=== PATIENT | male | born 1975 | race Hispanic/Latino ===

== ENCOUNTER 2018-03-15 09:49 | Inpatient (IN) | payer OTHER ==
[2018-03-15] MEDS ORDERED: Sodium Chloride 0.9% 1,000 ML IV ONE (10:25)
--- NOTE | 2018-03-15 10:35 | C.PDOC ---
History Of Present Illness 42 y/o male w/o significant PMHx, presents to the ER complaining of suprapubic abdominal pain which began yesterday and associated with diffuse back pain, nausea and non-bilious, non-bloody vomiting, chills. Patient reports that he had similar symptoms 3 weeks ago, the symptoms resolved on their own. Otherwise, pt denies having fever, headache, dizziness, malaisea, CP, SOB, dyspnea, palpitation, hematemesis, melena, diarrhea, dysuria, and hematuria. Ambulate to Ed for evaluation, not in any apparent distress. Time Seen by Provider: 03/15/18 10:02 Chief Complaint (Nursing): Abdominal Pain History Per: Patient History/Exam Limitations: no limitations Onset/Duration Of Symptoms: Days Current Symptoms Are (Timing): Still Present Severity: Moderate Location Of Pain/Discomfort: Suprapubic Associated Symptoms: Chills, Vomiting, Back Pain. denies: Fever, Diarrhea, Urinary Symptoms Past Medical History Reviewed: Historical Data, Nursing Documentation, Vital Signs Vital Signs: Last Vital Signs Temp 97.4 F L 03/15/18 09:52 Pulse 115 H 03/15/18 09:52 Resp 18 03/15/18 09:52 BP 134/92 H 03/15/18 09:52 Pulse Ox 100 03/15/18 09:52 - Medical History PMH: No Chronic Diseases Surgical History: No Surg Hx Family History: States: No Known Family Hx - Social History Hx Alcohol Use: No Hx Substance Use: No - Immunization History Hx Tetanus Toxoid Vaccination: No Hx Influenza Vaccination: No Hx Pneumococcal Vaccination: No Review Of Systems Except As Marked, All Systems Reviewed And Found Negative. Constitutional: Positive for: Chills. Negative for: Fever Gastrointestinal: Positive for: Vomiting, Abdominal Pain (suprapubic abdominal pain). Negative for: Diarrhea Genitourinary: Negative for: Dysuria, Hematuria Musculoskeletal: Positive for: Back Pain Physical Exam - Physical Exam Appears: Well, Non-toxic, No Acute Distress Skin: Normal Color, Warm, Dry, Pale Head: Normacephalic Eye(s): bilateral: PERRL Nose: No Flaring, No Discharge Oral Mucosa: Dry Lips: Pale Throat: No Erythema, No Drooling Neck: Trachea Midline, Supple Chest: Symmetrical Cardiovascular: Rhythm Regular, No Murmur, No JVD Respiratory: No Decreased Breath Sounds, No Accessory Muscle Use, No Rales, No Rhonchi, No Stridor, No Wheezing Gastrointestinal/Abdominal: Soft, Tenderness (mild RLQ, suprapubic tenderness), No Distention, No Guarding, No Rebound Back: No CVA Tenderness Extremity: Normal ROM, No Deformity, No Swelling Neurological/Psych: Oriented x3, Normal Speech ED Course And Treatment - Laboratory Results Result Diagrams: 03/15/18 10:33 03/15/18 10:33 Lab Interpretation: Abnormal ECG: Interpreted By Me, Viewed By Me O2 Sat by Pulse Oximetry: 100 (RA) Pulse Ox Interpretation: Normal - Radiology CXR: Interpreted by Me, Viewed By Me CXR Interpretation: No: Infiltrates - CT Scan/US CT-Abd & Pelv. Other Rad Studies (CT/US): Read By Radiologist, Radiology Report Reviewed CT/US Interpretation: Date of service: 03/15/2018. PROCEDURE: CT Abdomen and Pelvis with contrast. HISTORY: abd pain. COMPARISON: None available. TECHNIQUE: Contrast dose: 477.67. Radiation dose: Total exam DLP = 477.67 mGy-cm. This CT exam was performed using one or more of the following dose reduction techniques: Automated exposure control, adjustment of the mA and/or kV according to patient size, and/or use of iterative reconstruction technique. FINDINGS: LOWER THORAX: No visible consolidation, pleural effusion, or pneumothorax. LIVER: Subtle hypodense hepatic masses. For example: 11 mm subcapsular left hepatic lobe (series 3, image 50), 11 mm and 15 mm posterior right hepatic lobe (image 41). Hypoattenuation of the liver compatible with hepatic steatosis. GALLBLADDER AND BILE DUCTS: Unremarkable. PANCREAS: Unremarkable. SPLEEN: 19 mm probable splenule. ADRENALS: Unremarkable. KIDNEYS AND URETERS: The kidneys enhance symmetrically. No hydronephrosis or obstructing calculus identified. VASCULATURE: No aortic aneurysm. No atherosclerotic calcification or mural plaque present. BOWEL: Stomach is nondistended. Lack of oral contrast limits evaluation for bowel pathology. Regions of abnormal small bowel wall thickening. Dilated fluid-filled small b owel loops concerning for obstruction with evidence of transition point in the left upper quadrant (coronal image 62). Abnormal appearance of the cecum and terminal ileum may be related to infectious or inflammatory etiologies however malignant neoplasm must be excluded. APPENDIX: The appendix measures approximately 14 mm dilated. PERITONEUM: Small pelvic free fluid. No definite free air. LYMPH NODES: Extensive enlarged/bulky retroperitoneal and mesenteric adenopathy. For example, 2.9 x 4.7 cm retroperitoneal soft tissue surrounding the common iliac arteries. BLADDER: Unremarkable. REPRODUCTIVE: Unremarkable. BONES: No acute osseous abnormality is detected. OTHER FINDINGS: Fat containing bilateral inguinal hernias. IMPRESSION: Regions of abnormal small bowel wall thickening. Dilated fluid-filled small bowel loops concerning for obstruction; suspect transition point in the left abdomen. Abnormal appearance of the cecum and terminal ileum may be related to infectious or inflammatory etiologies however malignant neoplasm is suspected. At least 3 hepatic hypodense masses are identified worrisome for metastases. Extensive enlarged/bulky retroperitoneal/mesenteric adenopathy. Dilated appendix measures approximately 14 mm in diameter. Correlate clinically with physical exam and white count. Findings discussed with Dr. Moreau on 03/15/18 at 12:06 p.m. and REUBEN Ruano at 12:28 p.m. Progress Note: Labs, UA, and CT-Abd & Pelv. ordered. Patient treated with Zofran IV, Toradol IV, and IV Fluids. After CT A/P performed, was called by radiol ogist and findings discussed. case discussed with patient, admission recommend. case discussed with Hospitalist and admission arranged to reg floor with Dx: SBO, Abnormal appearance of the cecum and terminal ileum r/o CA, appendicial inflammation. Disposition - Disposition Disposition: HOSPITALIZED Disposition Time: 12:30 Condition: STABLE - Clinical Impression Clinical Impression: SBO (small bowel obstruction), Liver mass, Colon cancer, Vomiting - PA / ROLL CLEANER / Resident Statement MD/DO has reviewed & agrees with the documentation as recorded. - Scribe Statement The provider has reviewed the documentation as [facility] Provider Attestation All medical record entries [facility] by the [facility] were at my direction and personally dictated by me. I have reviewed the chart and agree that the record accurately reflects my personal performance of the history, physical exam, medical decision making, and the department course for this patient. I have also personally directed, reviewed, and agree with the discharge instructions and disposition.
[2018-03-15 10:38] LABS: MEAN CELL VOLUME 59.7 fL (80.0-94.0); MEAN CORPUSCULAR HEMOGLOBIN 18.2 pg (27.0-31.0); MEAN CORPUSCULAR HGB CONC 30.6 g/dL (33.0-37.0); MEAN PLATELET VOLUME 8.7 fL (7.2-11.7); PLATELET COUNT 413 K/uL (130-400); RBC 5.46 Mil/uL (4.40-5.90); RED CELL DISTRIBUTION WIDTH 20.4 % (11.5-14.5); WHITE BLOOD COUNT 12.1 K/uL (4.8-10.8)
[2018-03-15 10:43] LABS: URINE BILIRUBIN 1+ (NEGATIVE); URINE BLOOD NEGATIVE (NEGATIVE); URINE CLARITY Clear (Clear); URINE COLOR Yellow (YELLOW); URINE GLUCOSE (UA) NORMAL (Normal); URINE LEUKOCYTE ESTERASE NEG Leu/uL (Negative); URINE PROTEIN 1+ mg/dL (NEGATIVE)
[2018-03-15] MEDS ORDERED: Sodium Chloride 0.9% 1,000 ML ONE (10:46)
[2018-03-15 10:53] LABS: ALB/GLOB RATIO 1.4 (1.0-2.1); ALBUMIN 4.7 g/dL (3.5-5.0); ALT/SGPT 19 U/L (21-72); AST/SGOT 27 U/L (17-59); BLOOD UREA NITROGEN 11 mg/dL (9-20); GFR NON-AFRICAN AMERICAN > 60; LIPASE 115 U/L (23-300)
[2018-03-15 10:56] LABS: INR 1.2
[2018-03-15] MEDS ORDERED: Azithromycin 500 MG in Sodium Chloride 0.9% 250 ML IVPB STA (11:14)
[2018-03-15] MEDS ORDERED: Iodixanol 320 MG/ML 100 ML BOTTLE IV ONE (11:27)
[2018-03-15 11:55] LABS: LYMPH # 1.1 K/uL (1.0-4.3); NEUT # 9.7 K/uL (1.8-7.0)
[2018-03-15 11:56] LABS: EOS # 0.5 K/uL (0.0-0.7); MONO # 0.9 K/uL (0.0-0.8)
[2018-03-15 11:58] LABS: ANISOCYTOSIS MODERATE; EOSINOPHIL 3 % (0-4); LYMPHOCYTE 9 % (20-40); MICROCYTOSIS MODERATE; MONOCYTE 3 % (0-10); NEUTROPHIL 85 % (50-75); PLATELET ESTIMATE NORMAL (NORMAL); TOTAL CELLS COUNTED 100
[2018-03-15 11:59] LABS: HYPOCHROMIC MODERATE; OVALOCYTES SLIGHT; POLYCHROMIC SLIGHT
[2018-03-15 12:00] LABS: TARGET CELLS SLIGHT
--- NOTE | 2018-03-15 12:40 | CT ---
Date of service: 03/15/2018 PROCEDURE: CT Abdomen and Pelvis with contrast HISTORY: abd pain COMPARISON: None available. TECHNIQUE: Contrast dose: 477.67 Radiation dose: Total exam DLP = 477.67 mGy-cm. This CT exam was performed using one or more of the following dose reduction techniques: Automated exposure control, adjustment of the mA and/or kV according to patient size, and/or use of iterative reconstruction technique. FINDINGS: LOWER THORAX: No visible consolidation, pleural effusion, or pneumothorax. LIVER: Subtle hypodense hepatic masses. For example: 11 mm subcapsular left hepatic lobe (series 3, image 50), 11 mm and 15 mm posterior right hepatic lobe (image 41). Hypoattenuation of the liver compatible with hepatic steatosis. GALLBLADDER AND BILE DUCTS: Unremarkable. PANCREAS: Unremarkable. SPLEEN: 19 mm probable splenule. ADRENALS: Unremarkable. KIDNEYS AND URETERS: The kidneys enhance symmetrically. No hydronephrosis or obstructing calculus identified. VASCULATURE: No aortic aneurysm. No atherosclerotic calcification or mural plaque present. BOWEL: Stomach is nondistended. Lack of oral contrast limits evaluation for bowel pathology. Regions of abnormal small bowel wall thickening. Dilated fluid-filled small bowel loops concerning for obstruction with evidence of transition point in the left upper quadrant (coronal image 62). Abnormal appearance of the cecum and terminal ileum may be related to infectious or inflammatory etiologies however malignant neoplasm must be excluded. APPENDIX: The appendix measures approximately 14 mm dilated. PERITONEUM: Small pelvic free fluid. No definite free air. LYMPH NODES: Extensive enlarged/bulky retroperitoneal and mesenteric adenopathy. For example, 2.9 x 4.7 cm retroperitoneal soft tissue surrounding the common iliac arteries. BLADDER: Unremarkable. REPRODUCTIVE: Unremarkable. BONES: No acute osseous abnormality is detected. OTHER FINDINGS: Fat containing bilateral inguinal hernias. IMPRESSION: Regions of abnormal small bowel wall thickening. Dilated fluid-filled small bowel loops concerning for obstruction; suspect transition point in the left abdomen. Abnormal appearance of the cecum and terminal ileum may be related to infectious or inflammatory etiologies however malignant neoplasm is suspected. At least 3 hepatic hypodense masses are identified worrisome for metastases. Extensive enlarged/bulky retroperitoneal/mesenteric adenopathy. Dilated appendix measures approximately 14 mm in diameter. Correlate clinically with physical exam and white count. Findings discussed with Dr. Moreau on 03/15/18 at 12:06 p.m. and REUBEN Ruano at 12:28 p.m.
[2018-03-15] MEDS: Sodium Chloride 0.9% 1,000 ML IV SCH ×2 (15:22→22:17)
--- NOTE | 2018-03-15 15:22 | CP.PCM.HP ---
<BeverleyPaola - Last Filed: 03/15/18 15:48> History of Present Illness - History of Present Illness History of Present Illness: Paola Lowery PGY1 H&P for Dr. Amaya Pt is a 42yoM with no PMH history presents with abdominal pain for 2 days. He reports previously having a "stomach bug" 2 months ago that consisted of vomiting that subsided after a large bowel movement. He then reported lower abdominal pain 2 days ago that he rated a 6 out of 10 and describes as a pressure-like sensation. He reports feeling full and "blocked" in the lower abdomen. He reports taking tylenol and edvin seltzer last night which helped. He also reports associated b/l back pain and one episode of non bloody non bilious vomiting last night. He reported his last bowel movement was last night, which was pale and soft, but formed and non-stringy. Pt denies blood in stool. He reports recent 10lb weight loss over the past few weeks, which he attributes to improved diet and exercise. He denies any fever, chills, night sweats, shortness of breath, chest pain, diarrhea, dysuria, difficulty urinating. In the ED, CT abd showed small bowel thickening, dilated fluid-filled small bowel loops concerning for obstruction with transition pt on the L. abnormal cecum and terminal ileum, 3 hepatic hypodense masses, bulky retroperitoneal/mesenteric adenopathy, and dilated appendix. PMH: denies SxH: denies SocH: former tobacco use, quit 10y ago. social etoh use but quit 4 months ago. denies recreational drug use. FamH: father 62yo, esophageal CA. mom alive and well Allergies: NKDA Meds: omeprazole PMD: none Present on Admission - Present on Admission Any Indicators Present on Admission: No Review of Systems - Review of Systems Review of Systems: as per HPI Past Patient History - Past Social History Smoking Status: Never Smoked - PSYCHIATRIC Hx Substance Use: No - SURGICAL HISTORY Hx Surgeries: No Meds Allergies/Adverse Reactions: Allergies Allergy/AdvReac Type Severity Reaction Status Date / Time No Known Allergies Allergy Verified 03/15/18 09:54 Physical Exam - Constitutional Appears: Well, No Acute Distress - Head Exam Head Exam: ATRAUMATIC, NORMOCEPHALIC - Eye Exam Eye Exam: EOMI, Normal appearance, PERRL Pupil Exam: NORMAL ACCOMODATION - ENT Exam ENT Exam: Mucous Membranes Moist, Normal Exam - Neck Exam Neck exam: Positive for: Normal Inspection - Respiratory Exam Respiratory Exam: Clear to Auscultation Bilateral, NORMAL BREATHING PATTERN. absent: Rales, Rhonchi, Wheezes, Respiratory Distress - Cardiovascular Exam Cardiovascular Exam: REGULAR RHYTHM, +S1, +S2. absent: Gallop, Rubs, Systolic Murmur - GI/Abdominal Exam GI & Abdominal Exam: Diminished Bowel Sounds, Rebound, Soft, Tenderness. absent: Distended, Firm, Rigid Additional comments: tender to palpation of R mid and lower abdomen. + rebound tenderness on palpation of LLQ - Extremities Exam Extremities exam: Positive for: normal inspection. Negative for: pedal edema, tenderness - Back Exam Back exam: NORMAL INSPECTION - Neurological Exam Neurological exam: Alert, Oriented x3 - Psychiatric Exam Psychiatric exam: Normal Affect, Normal Mood - Skin Skin Exam: Normal Color Results - Vital Signs Recent Vital Signs: Last Vital Signs Temp 98.3 F 03/15/18 14:06 Pulse 89 03/15/18 14:06 Resp 20 03/15/18 14:06 BP 123/78 03/15/18 14:06 Pulse Ox 98 03/15/18 14:06 - Labs Result Diagrams: 03/15/18 10:33 03/15/18 10:33 Labs: Laboratory Results - last 24 hr 03/15/18 03/15/18 03/15/18 10:15 10:33 10:33 WBC 12.1 H RBC 5.46 Hgb 10.0 L Hct 32.6 L MCV 59.7 L MCH 18.2 L MCHC 30.6 L RDW 20.4 H Plt Count 413 H MPV 8.7 Neut % (Auto) 80.0 H Lymph % (Auto) 9.0 L [place] % (Auto) 7.0 Eos % (Auto) 4.0 Baso % (Auto) 0.0 Neut # (Auto) 9.7 H Lymph # (Auto) 1.1 [place] # (Auto) 0.9 H Eos # (Auto) 0.5 Baso # (Auto) 0.0 Neutrophils % (Manual) 85 H Lymphocytes % (Manual) 9 L Monocytes % (Manual) 3 Eosinophils % (Manual) 3 Platelet Estimate Normal Polychromasia Slight Hypochromasia (manual) Moderate Anisocytosis (manual) Moderate Microcytosis (manual) Moderate Target Cells Slight Ovalocytes Slight PT 13.0 H INR 1.2 APTT 26 Sodium Potassium Chloride Carbon Dioxide Anion Gap BUN Creatinine Est GFR ( Amer) Est GFR (Non-Af Amer) Random Glucose Calcium Total Bilirubin AST ALT Alkaline Phosphatase Total Protein Albumin Globulin Albumin/Globulin Ratio Lipase Urine Color Yellow Urine Clarity Clear Urine pH 5.0 Ur Specific [place] 1.028 Urine Protein 1+ H Urine Glucose (UA) Normal Urine Ketones Negative Urine Blood Negative Urine Nitrate Negative Urine Bilirubin 1+ H Urine Urobilinogen 2.0 Ur Leukocyte Esterase Neg Urine WBC (Auto) 1 Urine RBC (Auto) < 1 03/15/18 10:33 WBC RBC Hgb Hct MCV MCH MCHC RDW Plt Count MPV Neut % (Auto) Lymph % (Auto) [place] % (Auto) Eos % (Auto) Baso % (Auto) Neut # (Auto) Lymph # (Auto) [place] # (Auto) Eos # (Auto) Baso # (Auto) Neutrophils % (Manual) Lymphocytes % (Manual) Monocytes % (Manual) Eosinophils % (Manual) Platelet Estimate Polychromasia Hypochromasia (manual) Anisocytosis (manual) Microcytosis (manual) Target Cells Ovalocytes PT INR APTT Sodium 141 Potassium 4.2 Chloride 99 Carbon Dioxide 28 Anion Gap 18 BUN 11 Creatinine 0.6 L Est GFR ( Amer) > 60 Est GFR (Non-Af Amer) > 60 Random Glucose 125 H Calcium 10.0 Total Bilirubin 0.9 AST 27 ALT 19 L Alkaline Phosphatase 86 Total Protein 8.1 Albumin 4.7 Globulin 3.4 Albumin/Globulin Ratio 1.4 Lipase 115 Urine Color Urine Clarity Urine pH Ur Specific [place] Urine Protein Urine Glucose (UA) Urine Ketones Urine Blood Urine Nitrate Urine Bilirubin Urine Urobilinogen Ur Leukocyte Esterase Urine WBC (Auto) Urine RBC (Auto) Assessment & Plan - Assessment and Plan (Free Text) Assessment: 42yo M with no PMH presents with abdominal pain for 2 days, admitted for SBO and CT suspicious for colon and liver malignancies. Plan: SBO - CT abd: small bowel thickening, dilated fluid-filled small bowel loops concerning for obstruction with transition pt on the L. abnormal cecum and terminal ileum, 3 hepatic hypodense masses, bulky retroperitoneal/mesenteric adenopathy, and dilated appendix - afebrile - WBC 12.1 - NPO - NG tube draining thick, green liquid - low intermittent suction - CXR: lateral L basal subsegmental atelectatic change, NG tube in stomach - NS 1000ml @150cc/hr - toradol 30mg IV q6h PRN - zofran 4mg IV q6h PRN - f/u ABG at 18:00 - consider Sx consult - GI consulted, Dr. Black/Cherie - f/u recs Colonic/Hepatic Lesions - CT abd: small bowel thickening, dilated fluid-filled small bowel loops concerning for obstruction with transition pt on the L. abnormal cecum and terminal ileum, 3 hepatic hypodense masses, bulky retroperitoneal/mesenteric adenopathy, and dilated appendix - f/u CA19-9, CEA, AFP, GGT, PSA - f/u FOBT - f/u CT head w/contrast, chest w/contrast - Heme/onc consulted: Dr. Fabian - f/u recs - GI consulted, Dr. Black/Cherie - f/u recs - consider Sx consult Microcytic Anemia - H/H .6 - MCV low - likely secondary to malignancy - f/u Fe studies - f/u B12, folate PPX: GI: not indicated at this time DVT: SCDs NPO Pt seen with and plan discussed with Dr. Amaya <Nimesh Amaya - Last Filed: 03/15/18 16:57> Results - Vital Signs Recent Vital Signs: Last Vital Signs Temp 97.8 F 03/15/18 16:05 Pulse 108 H 03/15/18 16:05 Resp 20 03/15/18 16:05 BP 127/82 03/15/18 16:05 Pulse Ox 100 03/15/18 16:31 - Labs Result Diagrams: 03/15/18 10:33 03/15/18 10:33 Labs: Laboratory Results - last 24 hr 03/15/18 03/15/18 03/15/18 10:15 10:33 10:33 WBC 12.1 H RBC 5.46 Hgb 10.0 L Hct 32.6 L MCV 59.7 L MCH 18.2 L MCHC 30.6 L RDW 20.4 H Plt Count 413 H MPV 8.7 Neut % (Auto) 80.0 H Lymph % (Auto) 9.0 L [place] % (Auto) 7.0 Eos % (Auto) 4.0 Baso % (Auto) 0.0 Neut # (Auto) 9.7 H Lymph # (Auto) 1.1 [place] # (Auto) 0.9 H Eos # (Auto) 0.5 Baso # (Auto) 0.0 Neutrophils % (Manual) 85 H Lymphocytes % (Manual) 9 L Monocytes % (Manual) 3 Eosinophils % (Manual) 3 Platelet Estimate Normal Polychromasia Slight Hypochromasia (manual) Moderate Anisocytosis (manual) Moderate Microcytosis (manual) Moderate Target Cells Slight Ovalocytes Slight PT 13.0 H INR 1.2 APTT 26 Puncture Site pCO2 pO2 HCO3 ABG pH ABG Total CO2 ABG O2 Saturation ABG Base Excess ABG Hemoglobin ABG Carboxyhemoglobin POC ABG HHb (Measured) ABG Methemoglobin Scottie Test A-a O2 Difference Respiratory Index Hgb O2 Saturation FiO2 Sodium Potassium Chloride Carbon Dioxide Anion Gap BUN Creatinine Est GFR ( Amer) Est GFR (Non-Af Amer) Random Glucose Calcium Total Bilirubin AST ALT Alkaline Phosphatase Total Protein Albumin Globulin Albumin/Globulin Ratio Lipase Urine Color Yellow Urine Clarity Clear Urine pH 5.0 Ur Specific [place] 1.028 Urine Protein 1+ H Urine Glucose (UA) Normal Urine Ketones Negative Urine Blood Negative Urine Nitrate Negative Urine Bilirubin 1+ H Urine Urobilinogen 2.0 Ur Leukocyte Esterase Neg Urine WBC (Auto) 1 Urine RBC (Auto) < 1 03/15/18 03/15/18 10:33 16:11 WBC RBC Hgb Hct MCV MCH MCHC RDW Plt Count MPV Neut % (Auto) Lymph % (Auto) [place] % (Auto) Eos % (Auto) Baso % (Auto) Neut # (Auto) Lymph # (Auto) [place] # (Auto) Eos # (Auto) Baso # (Auto) Neutrophils % (Manual) Lymphocytes % (Manual) Monocytes % (Manual) Eosinophils % (Manual) Platelet Estimate Polychromasia Hypochromasia (manual) Anisocytosis (manual) Microcytosis (manual) Target Cells Ovalocytes PT INR APTT Puncture Site Rr pCO2 39 pO2 80 HCO3 25.5 ABG pH 7.42 ABG Total CO2 26.5 ABG O2 Saturation 98.8 H ABG Base Excess 0.8 ABG Hemoglobin 9.0 L ABG Carboxyhemoglobin 2.7 H POC ABG HHb (Measured) 1.2 ABG Methemoglobin 1.0 Scottie Test Po A-a O2 Difference 21.0 Respiratory Index 0.3 Hgb O2 Saturation 95.2 FiO2 21.0 Sodium 141 Potassium 4.2 Chloride 99 Carbon Dioxide 28 Anion Gap 18 BUN 11 Creatinine 0.6 L Est GFR ( Amer) > 60 Est GFR (Non-Af Amer) > 60 Random Glucose 125 H Calcium 10.0 Total Bilirubin 0.9 AST 27 ALT 19 L Alkaline Phosphatase 86 Total Protein 8.1 Albumin 4.7 Globulin 3.4 Albumin/Globulin Ratio 1.4 Lipase 115 Urine Color Urine Clarity Urine pH Ur Specific [place] Urine Protein Urine Glucose (UA) Urine Ketones Urine Blood Urine Nitrate Urine Bilirubin Urine Urobilinogen Ur Leukocyte Esterase Urine WBC (Auto) Urine RBC (Auto) Attending/Attestation - Attestation I have personally seen and examined this patient.: Yes I have fully participated in the care of the patient.: Yes I have reviewed all pertinent clinical information: Yes Notes (Text): 03/15/18 16:45 Medical attending: Patient was seen and examined by me. Agree with the above note by the resident Patient has had intermittent suprapubic area and right lower quadrant abdominal pain. As reported above in the medical coder's note, the patient has had some weightloss. Also reports that his stool's form seemed different recently - it seemed more thin and different color. He denied seeing tracey blood per rectum. CT scan of abdomen and pelvis shows concerning findings for what may be a malignancy causing obstruction. Patient will need surgical evaluation, GI evaluation, and hematology/oncology. When we came and saw him, he did have tenderness on exam however was mild when I saw him - that being said given the CT findings of distention of the stomach as well as the distention in the small bowel seen on the CT, we placed an NGT down and we had return of dark green bilouis color liquid return. Patient tolerated this well. We will get a portable film for placement. He will need to be NPO at this time, IVF as well as try to use non-narctoic pain medication. Later today will get ABG to assess for any possible change. We did a rectal exam and stool occult was sent for. He is slighlty anemic, Hgb is 10 possible from a malignant process. There is a family of throat cancer he tells us. He has never had a colonscopy before. Does not take any medications We will also get a CT scan of the chest as well as of the head as well. AFP, GGT, CEA, CA 19-9 thank you Nimesh Amaya 03/15/18 16:57
--- NOTE | 2018-03-15 15:32 | CP.PCM.CON ---
History of Present Illness - History of Present Illness History of Present Illness: We are asked now to see pt for vomiting, SBO. 3 weeks ago- N/V abdom pain- improved after large BM. Now 2 days- nausea, abdom pain, bloating. CAme to ER- found SBO. CT shows SB thick, abnormal cecum, and liver lesons. Reports 10 lb wt loss. Review of Systems - Constitutional Constitutional: Anorexia, Fatigue, Weight Loss, Weakness. absent: Headache - EENT Eyes: absent: Photophobia Nose/Mouth/Throat: absent: Epistaxis - Cardiovascular Cardiovascular: absent: Chest Pain, Dyspnea, Pedal Edema - Respiratory Respiratory: absent: Dyspnea, Hemoptysis, Wheezing - Gastrointestinal Gastrointestinal: Abdominal Pain, Bloating, Change in Bowel Habits, Nausea, Vomiting. absent: Coffee Ground Emesis, Constipation, Diarrhea, Dysphagia, Hematemesis, Hematochezia, Melena, Odynophagia - Genitourinary Genitourinary: absent: Flank Pain, Hematuria - Musculoskeletal Musculoskeletal: absent: Deformity, Joint Swelling, Muscle Cramps, Muscle Weakness - Integumentary Integumentary: absent: Jaundice - Neurological Neurological: absent: Convulsions, Syncope - Psychiatric Psychiatric: absent: Hallucinations - Endocrine Endocrine: absent: [place] Past Patient History - Past Social History Smoking Status: Never Smoked - PSYCHIATRIC Hx Substance Use: No - SURGICAL HISTORY Hx Surgeries: No Meds Allergies/Adverse Reactions: Allergies Allergy/AdvReac Type Severity Reaction Status Date / Time No Known Allergies Allergy Verified 03/15/18 09:54 - Medications Medications: Current Medications Sodium Chloride (Sodium Chloride 0.9%) 1,000 mls @ 150 mls/hr IV .Q6H40M [facility] Last Admin: 03/15/18 15:22 Dose: 150 mls/hr Ketorolac Tromethamine (Toradol) 30 mg IV Q6 PRN PRN Reason: Pain, moderate (4-7) Ondansetron HCl (Zofran Inj) 4 mg IVP Q6 PRN PRN Reason: Nausea/Vomiting Physical Exam - Constitutional Appears: Non-toxic - Neck Exam Neck exam: Negative for: Tenderness - Respiratory Exam Respiratory Exam: Clear to Auscultation Bilateral - Cardiovascular Exam Cardiovascular Exam: RRR - GI/Abdominal Exam GI & Abdominal Exam: Distended, Tenderness. absent: Guarding, Normal Bowel Sounds, Rebound - Extremities Exam Extremities exam: Negative for: calf tenderness - Neurological Exam Neurological exam: Alert, Oriented x3 Results - Vital Signs Recent Vital Signs: Last Vital Signs Temp 98.3 F 03/15/18 14:06 Pulse 89 03/15/18 14:06 Resp 20 03/15/18 14:06 BP 123/78 03/15/18 14:06 Pulse Ox 98 03/15/18 14:06 - Labs Result Diagrams: 03/15/18 10:33 03/15/18 10:33 Labs: Laboratory Results - last 24 hr 03/15/18 03/15/18 03/15/18 10:15 10:33 10:33 WBC 12.1 H RBC 5.46 Hgb 10.0 L Hct 32.6 L MCV 59.7 L MCH 18.2 L MCHC 30.6 L RDW 20.4 H Plt Count 413 H MPV 8.7 Neut % (Auto) 80.0 H Lymph % (Auto) 9.0 L [place] % (Auto) 7.0 Eos % (Auto) 4.0 Baso % (Auto) 0.0 Neut # (Auto) 9.7 H Lymph # (Auto) 1.1 [place] # (Auto) 0.9 H Eos # (Auto) 0.5 Baso # (Auto) 0.0 Neutrophils % (Manual) 85 H Lymphocytes % (Manual) 9 L Monocytes % (Manual) 3 Eosinophils % (Manual) 3 Platelet Estimate Normal Polychromasia Slight Hypochromasia (manual) Moderate Anisocytosis (manual) Moderate Microcytosis (manual) Moderate Target Cells Slight Ovalocytes Slight PT 13.0 H INR 1.2 APTT 26 Sodium Potassium Chloride Carbon Dioxide Anion Gap BUN Creatinine Est GFR ( Amer) Est GFR (Non-Af Amer) Random Glucose Calcium Total Bilirubin AST ALT Alkaline Phosphatase Total Protein Albumin Globulin Albumin/Globulin Ratio Lipase Urine Color Yellow Urine Clarity Clear Urine pH 5.0 Ur Specific [place] 1.028 Urine Protein 1+ H Urine Glucose (UA) Normal Urine Ketones Negative Urine Blood Negative Urine Nitrate Negative Urine Bilirubin 1+ H Urine Urobilinogen 2.0 Ur Leukocyte Esterase Neg Urine WBC (Auto) 1 Urine RBC (Auto) < 1 03/15/18 10:33 WBC RBC Hgb Hct MCV MCH MCHC RDW Plt Count MPV Neut % (Auto) Lymph % (Auto) [place] % (Auto) Eos % (Auto) Baso % (Auto) Neut # (Auto) Lymph # (Auto) [place] # (Auto) Eos # (Auto) Baso # (Auto) Neutrophils % (Manual) Lymphocytes % (Manual) Monocytes % (Manual) Eosinophils % (Manual) Platelet Estimate Polychromasia Hypochromasia (manual) Anisocytosis (manual) Microcytosis (manual) Target Cells Ovalocytes PT INR APTT Sodium 141 Potassium 4.2 Chloride 99 Carbon Dioxide 28 Anion Gap 18 BUN 11 Creatinine 0.6 L Est GFR ( Amer) > 60 Est GFR (Non-Af Amer) > 60 Random Glucose 125 H Calcium 10.0 Total Bilirubin 0.9 AST 27 ALT 19 L Alkaline Phosphatase 86 Total Protein 8.1 Albumin 4.7 Globulin 3.4 Albumin/Globulin Ratio 1.4 Lipase 115 Urine Color Urine Clarity Urine pH Ur Specific [place] Urine Protein Urine Glucose (UA) Urine Ketones Urine Blood Urine Nitrate Urine Bilirubin Urine Urobilinogen Ur Leukocyte Esterase Urine WBC (Auto) Urine RBC (Auto) Assessment & Plan - Assessment and Plan (Free Text) Assessment: 1) anemia- consider malignancy 2) SBo- consider malignancy/tumour 3) ABnl cecum- consider mass 4) N/V- SBO 5) Liver lesions- consider mets. 6) wt loss- when decreased ETOH intake P- NG tube Check CEA, CA19 Surgery f/u Can not do colonsocopy now due to SBO Consider liver biopsy Consider oncology consult. Check stool OB
--- NOTE | 2018-03-15 15:35 | RAD ---
Date of service: 03/15/2018 HISTORY: s/p NG tube placement COMPARISON: CT abdomen and pelvis 03/15/2018 FINDINGS: LUNGS: Lung volumes low-normal. Lateral left basal subsegmental probable atelectatic change PLEURA: No significant pleural effusion identified, no pneumothorax apparent. CARDIOVASCULAR: No aortic atherosclerotic calcification present. Normal cardiac size. No pulmonary vascular congestion. OSSEOUS STRUCTURES: No significant abnormalities. VISUALIZED UPPER ABDOMEN: NG tube in stomach tip coils back towards gastric cardia OTHER FINDINGS: Partially visualize are prominent small-bowel central loops-correlate with CT IMPRESSION: Lateral left basal subsegmental atelectatic change NG tube in stomach tip towards gastric cardia Partially visualized epigastric small-bowel apparent dilated loops-CT findings referenced this and multiple distal findings Please note this same-day CT report
[2018-03-15 16:15] LABS: ABG ALLEN TEST PO; ARTERIAL BLOOD GAS HCO3 25.5 mmol/L (21-28); ARTERIAL BLOOD GAS O2 SAT 98.8 % (95-98); ARTERIAL BLOOD GAS PCO2 39 mm/Hg (35-45); ARTERIAL BLOOD GAS PH 7.42 (7.35-7.45); ARTERIAL BLOOD GAS PO2 80 mm/Hg (80-100); ARTERIAL BLOOD GAS TCO2 26.5 mmol/L (22-28)
[2018-03-15 17:09] LABS: IRON 19 ug/dL (49-181)
[2018-03-15 17:21] LABS: % IRON SATURATION 5 (20-55); TOTAL IRON BINDING CAPACITY 394 ug/dL (250-450)
[2018-03-15 18:24] LABS: FOLATE 18.1 ng/mL
[2018-03-16] MEDS: Sodium Chloride 0.9% 1,000 ML IV SCH ×2 (05:20→11:45)
[2018-03-16 07:15] LABS: HEMOGLOBIN 8.1 g/dL (12.0-18.0); MEAN CELL VOLUME 60.1 fL (80.0-94.0); MEAN CORPUSCULAR HEMOGLOBIN 18.2 pg (27.0-31.0); MEAN CORPUSCULAR HGB CONC 30.3 g/dL (33.0-37.0); MEAN PLATELET VOLUME 8.8 fL (7.2-11.7); RBC 4.46 Mil/uL (4.40-5.90); RED CELL DISTRIBUTION WIDTH 20.1 % (11.5-14.5)
[2018-03-16 07:33] LABS: INR 1.2
[2018-03-16 08:02] LABS: ALB/GLOB RATIO 1.4 (1.0-2.1); ALBUMIN 3.7 g/dL (3.5-5.0); ALT/SGPT 20 U/L (21-72); AST/SGOT 21 U/L (17-59); BLOOD UREA NITROGEN 12 mg/dL (9-20); CALCIUM 8.4 mg/dl (8.6-10.4); GFR NON-AFRICAN AMERICAN > 60
[2018-03-16 10:01] LABS: EOS # 0.5 K/uL (0.0-0.7); LYMPH # 0.9 K/uL (1.0-4.3); MONO # 0.6 K/uL (0.0-0.8)
--- NOTE | 2018-03-16 11:39 | CP.PCM.PN ---
Subjective - Date & Time of Evaluation Date of Evaluation: 03/16/18 Time of Evaluation: 11:38 - Subjective Subjective: Discussed with dr Amaya: Pt going for exploratory surgery this afternoon. I suspect malignancy. Will f/u pathology Objective - Vital Signs/Intake and Output Vital Signs (last 24 hours): Temp Pulse Resp BP Pulse Ox 98.0 F 89 20 127/73 96 03/16/18 09:27 03/16/18 09:27 03/16/18 09:27 03/16/18 09:27 03/16/18 09:27 Intake and Output: 03/16/18 03/16/18 06:59 18:59 Intake Total 2400 Output Total 1000 Balance 1400 - Medications Medications: Current Medications Sodium Chloride (Sodium Chloride 0.9%) 1,000 mls @ 150 mls/hr IV .Q6H40M [facility] Last Admin: 03/16/18 05:20 Dose: 150 mls/hr Influenza Virus Vaccine (Fluzone Quad [id number]) 60 mcg IM .ONCE ONE Stop: 03/18/18 10:01 Ketorolac Tromethamine (Toradol) 30 mg IV Q6 PRN PRN Reason: Pain, moderate (4-7) Ondansetron HCl (Zofran Inj) 4 mg IVP Q6 PRN PRN Reason: Nausea/Vomiting Pneumococcal Polyvalent Vaccine (Pneumovax 23 Vaccine) 0.5 ml IM .ONCE ONE Stop: 03/18/18 10:01 - Labs Labs: 03/16/18 07:10 03/16/18 07:10 PT 13.0 SECONDS (9.7-12.2) H 03/16/18 07:10 INR 1.2 03/16/18 07:10 APTT 29 SECONDS (21-34) 03/16/18 07:10
--- NOTE | 2018-03-16 12:05 | CP.PCM.CON ---
History of Present Illness - History of Present Illness History of Present Illness: General consult note for Dr. Mai 42M with no significant PMH presented to ED for abdominal pain, diffuse back pain, nausea and non-bilious, non-bloody emesis for 2 days on 03/15. Patient reported that he had a similar symptoms 3 weeks ago but spontaneously resolved. CT on ED shows SBO with possible malignancy. Patient is currently not in any acute distress and denies any fever, chills, chest pain, SOB, diarrhea, dysuria or other associated pain. PMH: None PSH: None Social hx: Former tobacco user (quit 10 years ago) Family hx: Father ( 62y, esophageal CA) ALL: NKDA Review of Systems - Review of Systems All systems: reviewed and no additional remarkable complaints except - Constitutional Constitutional: As Per HPI - EENT Eyes: As Per HPI Ears: As Per HPI Nose/Mouth/Throat: As Per HPI - Cardiovascular Cardiovascular: As Per HPI - Respiratory Respiratory: As Per HPI - Gastrointestinal Gastrointestinal: As Per HPI - Genitourinary Genitourinary: As Per HPI - Musculoskeletal Musculoskeletal: As Per HPI - Neurological Neurological: As Per HPI - Psychiatric Psychiatric: As Per HPI - Endocrine Endocrine: As Per HPI - Hematologic/Lymphatic Hematologic: As Per HPI Past Patient History - Past Medical History & Family History Past Medical History?: No Past Family History: Reviewed and not pertinent - Past Social History Smoking Status: Former Smoker Alcohol: Other Drugs: Denies - CARDIAC Hx Cardiac Disorders: No - PULMONARY Hx Respiratory Disorders: No - NEUROLOGICAL Hx Neurological Disorder: No - HEENT Hx HEENT Problems: No - RENAL Hx Chronic Kidney Disease: No - ENDOCRINE/METABOLIC Hx Endocrine Disorders: No - HEMATOLOGICAL/ONCOLOGICAL Hx Blood Disorders: No - INTEGUMENTARY Hx Dermatological Problems: No - MUSCULOSKELETAL/RHEUMATOLOGICAL Hx Musculoskeletal Disorders: No Hx Falls: No - GASTROINTESTINAL Hx Gastrointestinal Disorders: No - GENITOURINARY/GYNECOLOGICAL Hx Genitourinary Disorders: No - PSYCHIATRIC Hx Substance Use: No - SURGICAL HISTORY Hx Surgeries: No - ANESTHESIA Hx Anesthesia: Yes (dental procedure) Hx Anesthesia Reactions: No Meds Allergies/Adverse Reactions: Allergies Allergy/AdvReac Type Severity Reaction Status Date / Time No Known Allergies Allergy Verified 03/15/18 09:54 - Medications Medications: Current Medications Sodium Chloride (Sodium Chloride 0.9%) 1,000 mls @ 150 mls/hr IV .Q6H40M [facility] Last Admin: 03/16/18 05:20 Dose: 150 mls/hr Influenza Virus Vaccine (Fluzone Quad [id number]) 60 mcg IM .ONCE ONE Stop: 03/18/18 10:01 Ketorolac Tromethamine (Toradol) 30 mg IV Q6 PRN PRN Reason: Pain, moderate (4-7) Ondansetron HCl (Zofran Inj) 4 mg IVP Q6 PRN PRN Reason: Nausea/Vomiting Pneumococcal Polyvalent Vaccine (Pneumovax 23 Vaccine) 0.5 ml IM .ONCE ONE Stop: 03/18/18 10:01 Physical Exam - Constitutional Appears: No Acute Distress - Head Exam Head Exam: ATRAUMATIC, NORMAL INSPECTION, NORMOCEPHALIC - Neck Exam Neck exam: Positive for: Normal Inspection - Respiratory Exam Respiratory Exam: NORMAL BREATHING PATTERN. absent: Accessory Muscle Use Results - Vital Signs Recent Vital Signs: Last Vital Signs Temp 98.0 F 03/16/18 09:27 Pulse 89 03/16/18 09:27 Resp 20 03/16/18 09:27 BP 127/73 03/16/18 09:27 Pulse Ox 96 03/16/18 09:27 - Labs Result Diagrams: 03/16/18 07:10 03/16/18 07:10 Labs: Laboratory Results - last 24 hr 03/15/18 03/15/18 03/15/18 16:11 16:49 16:49 WBC RBC Hgb Hct MCV MCH MCHC RDW Plt Count MPV Neut % (Auto) Lymph % (Auto) [place] % (Auto) Eos % (Auto) Baso % (Auto) Neut # (Auto) Lymph # (Auto) [place] # (Auto) Eos # (Auto) Baso # (Auto) PT INR APTT Puncture Site Rr pCO2 39 pO2 80 HCO3 25.5 ABG pH 7.42 ABG Total CO2 26.5 ABG O2 Saturation 98.8 H ABG Base Excess 0.8 ABG Hemoglobin 9.0 L ABG Carboxyhemoglobin 2.7 H POC ABG HHb (Measured) 1.2 ABG Methemoglobin 1.0 Scottie Test Po A-a O2 Difference 21.0 Respiratory Index 0.3 Hgb O2 Saturation 95.2 FiO2 21.0 Sodium Potassium Chloride Carbon Dioxide Anion Gap BUN Creatinine Est GFR ( Amer) Est GFR (Non-Af Amer) Random Glucose Calcium Iron TIBC % Saturation Total Bilirubin GGT 20 AST ALT Alkaline Phosphatase Total Protein Albumin Globulin Albumin/Globulin Ratio Alpha Fetoprotein 2.1 Carcinoembryonic Ag 1.1 CA 19-9 Antigen 2.7 Vitamin B12 382 Folate 18.1 Stool Occult Blood Blood Type 03/15/18 03/15/18 03/15/18 16:49 16:49 21:28 WBC RBC Hgb Hct MCV MCH MCHC RDW Plt Count MPV Neut % (Auto) Lymph % (Auto) [place] % (Auto) Eos % (Auto) Baso % (Auto) Neut # (Auto) Lymph # (Auto) [place] # (Auto) Eos # (Auto) Baso # (Auto) PT INR APTT Puncture Site pCO2 pO2 HCO3 ABG pH ABG Total CO2 ABG O2 Saturation ABG Base Excess ABG Hemoglobin ABG Carboxyhemoglobin POC ABG HHb (Measured) ABG Methemoglobin [place] Test A-a O2 Difference Respiratory Index Hgb O2 Saturation FiO2 Sodium Potassium Chloride Carbon Dioxide Anion Gap BUN Creatinine Est GFR ( Amer) Est GFR (Non-Af Amer) Random Glucose Calcium Iron 19 L TIBC 394 % Saturation 5 L 4 L Total Bilirubin GGT AST ALT Alkaline Phosphatase Total Protein Albumin Globulin Albumin/Globulin Ratio Alpha Fetoprotein Carcinoembryonic Ag CA 19-9 Antigen Vitamin B12 Folate Stool Occult Blood Negative Blood Type 03/16/18 03/16/18 03/16/18 07:10 07:10 07:10 WBC 7.0 RBC 4.46 Hgb 8.1 L Hct 26.8 L MCV 60.1 L MCH 18.2 L MCHC 30.3 L RDW 20.1 H Plt Count 356 MPV 8.8 Neut % (Auto) 71.0 Lymph % (Auto) 13.0 L [place] % (Auto) 8.0 Eos % (Auto) 7.0 H Baso % (Auto) 1.0 Neut # (Auto) 5.0 Lymph # (Auto) 0.9 L [place] # (Auto) 0.6 Eos # (Auto) 0.5 Baso # (Auto) 0.0 PT 13.0 H INR 1.2 APTT 29 Puncture Site pCO2 pO2 HCO3 ABG pH ABG Total CO2 ABG O2 Saturation ABG Base Excess ABG Hemoglobin ABG Carboxyhemoglobin POC ABG HHb (Measured) ABG Methemoglobin [place] Test A-a O2 Difference Respiratory Index Hgb O2 Saturation FiO2 Sodium 137 Potassium 4.0 Chloride 106 Carbon Dioxide 24 Anion Gap 11 BUN 12 Creatinine 0.6 L Est GFR ( Amer) > 60 Est GFR (Non-Af Amer) > 60 Random Glucose 83 Calcium 8.4 L Iron TIBC % Saturation Total Bilirubin 0.9 GGT AST 21 ALT 20 L Alkaline Phosphatase 65 Total Protein 6.4 Albumin 3.7 Globulin 2.7 Albumin/Globulin Ratio 1.4 Alpha Fetoprotein Carcinoembryonic Ag [place] 19-9 Antigen Vitamin B12 Folate Stool Occult Blood Blood Type 03/16/18 11:32 WBC RBC Hgb Hct MCV MCH MCHC RDW Plt Count MPV Neut % (Auto) Lymph % (Auto) [place] % (Auto) Eos % (Auto) Baso % (Auto) Neut # (Auto) Lymph # (Auto) [place] # (Auto) Eos # (Auto) Baso # (Auto) PT INR APTT Puncture Site pCO2 pO2 HCO3 ABG pH ABG Total CO2 ABG O2 Saturation ABG Base Excess ABG Hemoglobin ABG Carboxyhemoglobin POC ABG HHb (Measured) ABG Methemoglobin [place] Test A-a O2 Difference Respiratory Index Hgb O2 Saturation FiO2 Sodium Potassium Chloride Carbon Dioxide Anion Gap BUN Creatinine Est GFR ( Amer) Est GFR (Non-Af Amer) Random Glucose Calcium Iron TIBC % Saturation Total Bilirubin GGT AST ALT Alkaline Phosphatase Total Protein Albumin Globulin Albumin/Globulin Ratio Alpha Fetoprotein Carcinoembryonic Ag CA 19-9 Antigen Vitamin B12 Folate Stool Occult Blood Blood Type B POSITIVE Assessment & Plan - Assessment and Plan (Free Text) Assessment: 42M with no PMH with SBO with possible malignancy Plan: Due to obstruction, not candidate for colonoscopy or biopsy. Need surgical intervention Cont. NGT NPO Type and cross Cont. medical management per Primary Plans for OR today at 1:30pm D/W Dr. Pau Viera PGY-4
[2018-03-16] MEDS ORDERED: Iodixanol 320 MG/ML 100 ML BOTTLE IV ONE (12:13)
--- NOTE | 2018-03-16 13:15 | CT ---
Date of service: 03/16/2018 PROCEDURE: CT Chest with contrast HISTORY: colon and hepatic lesions r/o mets COMPARISON: None available. TECHNIQUE: Contiguous axial images were obtained through the chest with intravenous contrast enhancement. Sagittal and coronal reconstructions were performed. IV contrast: 100 mL Visipaque 320 Radiation dose: Total exam DLP = 464.78 mGy-cm. This CT exam was performed using one or more of the following dose reduction techniques: Automated exposure control, adjustment of the mA and/or kV according to patient size, and/or use of iterative reconstruction technique. FINDINGS: LUNGS: Clear lungs. Visualized airway clear. MEDIASTINUM: Unremarkable thoracic aorta. No aneurysm or dissection. Normal sized heart. Main pulmonary artery unremarkable. No vascular congestion. No lymphadenopathy. No aortic atherosclerotic calcification or mural plaque present. PLEURA: No pleural fluid. No pneumothorax. BONES: No fracture. No destructive lesion. grossly unremarkable. OTHER FINDINGS: Partially imaged enteric tube with tip terminating in the mid esophagus. IMPRESSION: Right lower lobe subsegmental atelectasis. No nodule, mass, consolidation or evidence of enlarged lymphadenopathy. Malpositioned enteric tube with tip terminating in the mid esophagus. For intra-abdominal findings please refer to CT scan of the abdomen pelvis performed 1 day prior.
--- NOTE | 2018-03-16 13:16 | CT ---
Date of service: 03/16/2018 PROCEDURE: CT HEAD WITH CONTRAST HISTORY: pt with suspected metastases COMPARISON: None available. TECHNIQUE: Axial computed tomography images were obtained through the head/brain with intravenous contrast. Contrast dose: 100 mL Visipaque 320 Radiation dose: Total exam DLP = 1152.15 mGy-cm. This CT exam was performed using one or more of the following dose reduction techniques: Automated exposure control, adjustment of the mA and/or kV according to patient size, and/or use of iterative reconstruction technique. FINDINGS: HEMORRHAGE: No intracranial hemorrhage. BRAIN: No mass, mass effect or edema. No abnormal intracranial enhancement. No atrophy or chronic microvascular ischemic changes. VENTRICLES: Unremarkable. No hydrocephalus. CALVARIUM: Unremarkable. PARANASAL SINUSES: Unremarkable as visualized. No significant inflammatory changes. MASTOID AIR CELLS: Unremarkable as visualized. No mastoid effusion. OTHER FINDINGS: None. IMPRESSION: Normal contrast enhanced CT of the head.
--- NOTE | 2018-03-16 13:48 | CP.PCM.PN ---
<Toney Raman - Last Filed: 03/16/18 16:57> Subjective - Date & Time of Evaluation Date of Evaluation: 03/16/18 Time of Evaluation: 13:28 - Subjective Subjective: PGY-[address] Amaya Patient seen and examined at bedside. NG tube in place. Patient comfortable resting in bed, and stated he was prepared to go for surgery this afternoon. He stated that he has been made aware of his current medical condition and the likelihood of malignancy. His only complaint at this time is mild LLQ abdominal pain. Patient's last bowel movement was Wednesday and was normal. He was kept NPO overnight and today for surgery. Otherwise, patient denies chest pain, shortness of breath, nausea, vomiting, headache, dizziness. Objective - Vital Signs/Intake and Output Vital Signs (last 24 hours): Temp Pulse Resp BP Pulse Ox 98.0 F 89 20 127/73 96 03/16/18 09:27 03/16/18 09:27 03/16/18 09:27 03/16/18 09:27 03/16/18 09:27 Intake and Output: 03/16/18 03/16/18 06:59 18:59 Intake Total 2400 Output Total 1000 Balance 1400 - Medications Medications: Current Medications Sodium Chloride (Sodium Chloride 0.9%) 1,000 mls @ 150 mls/hr IV .Q6H40M VLAD Last Admin: 03/16/18 11:45 Dose: 150 mls/hr Influenza Virus Vaccine (Fluzone Quad [id number]) 60 mcg IM .ONCE ONE Stop: 03/18/18 10:01 Ketorolac Tromethamine (Toradol) 30 mg IV Q6 PRN PRN Reason: Pain, moderate (4-7) Ondansetron HCl (Zofran Inj) 4 mg IVP Q6 PRN PRN Reason: Nausea/Vomiting Pneumococcal Polyvalent Vaccine (Pneumovax 23 Vaccine) 0.5 ml IM .ONCE ONE Stop: 03/18/18 10:01 - Labs Labs: 03/16/18 07:10 03/16/18 07:10 PT 13.0 SECONDS (9.7-12.2) H 03/16/18 07:10 INR 1.2 03/16/18 07:10 APTT 29 SECONDS (21-34) 10/31/18 07:10 - Constitutional Appears: Non-toxic, No Acute Distress - Head Exam Head Exam: ATRAUMATIC, NORMAL INSPECTION - Eye Exam Eye Exam: EOMI, Normal appearance - ENT Exam ENT Exam: Mucous Membranes Moist - Neck Exam Neck Exam: Full ROM. absent: Tenderness - Respiratory Exam Respiratory Exam: Clear to Ausculation Bilateral, NORMAL BREATHING PATTERN. absent: Rhonchi, Wheezes - Cardiovascular Exam Cardiovascular Exam: REGULAR RHYTHM, RRR, +S1, +S2. absent: Murmur - GI/Abdominal Exam GI & Abdominal Exam: Soft, Tenderness (Tender to palpation LLQ), Normal Bowel Sounds. absent: Firm, Guarding, Rigid, Rebound - Extremities Exam Extremities Exam: Normal Capillary Refill, Normal Inspection. absent: Pedal Edema - Neurological Exam Neurological Exam: Alert, Awake, CN II-XII Intact, Oriented x3 - Psychiatric Exam Psychiatric exam: Normal Affect, Normal Mood - Skin Skin Exam: Dry, Intact, Normal Color, Warm Assessment and Plan - Assessment and Plan (Free Text) Assessment: SBO - CT abd: small bowel thickening, dilated fluid-filled small bowel loops conc erning for obstruction with transition pt on the L. abnormal cecum and terminal ileum, 3 hepatic hypodense masses, bulky retroperitoneal/mesenteric adenopathy, and dilated appendix - afebrile - WBC 12.1 --> 7.0 - NPO - NG tube draining thick, green liquid - low intermittent suction - CXR: lateral L basal subsegmental atelectatic change, NG tube in stomach - NS 1000ml @150cc/hr - toradol 30mg IV q6h PRN - zofran 4mg IV q6h PRN - f/u ABG at 18:00 - GI consulted, Dr. 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 Suggest colonoscopy only if SBO resolves, otherwise ex lap will be required. -Surgery Consulted, Per surgical note, SBO not resolving with NG tube decompression, and patient will require surgical intervention -Surgery consult, Dr. Mai --Per surgical note, SBO not resolving with NG tube decompression, and patient will require surgical intervention. Patient going to OR this afternoon, will follow up with results. Colonic/Hepatic Lesions - CT abd: small bowel thickening, dilated fluid-filled small bowel loops concerning for obstruction with transition pt on the L. abnormal cecum and terminal ileum, 3 hepatic hypodense masses, bulky retroperitoneal/mesenteric adenopathy, and dilated appendix - f/u CA19-9, CEA, AFP, GGT, PSA - FOBT negative - Heme/onc consulted: Dr. Fabian - f/u recs - Head CT w/ IV contrast 03/16/2018- Normal contrast enhanced CT of the head - Chest CT with IV contrast 03/16/2018 - Right lower lobe subsegmental atelectasis. No nodule, mass, consolidation, or evidence of enlarged lymphadenopathy. Malpositioned enteric tube with tip terminating in the mid esophagus. -See GI and surgery recs above Microcytic Anemia - H/H 8.1/26.8 - MCV low - likely secondary to malignancy - Fe studies --Iron deficiency - Fe 19 --TIBC WNL --B12, Folate WNL PPX: GI: not indicated at this time DVT: SCDs NPO <Amaya,Peter H - Last Filed: 03/16/18 18:11> Objective - Vital Signs/Intake and Output Vital Signs (last 24 hours): Temp Pulse Resp BP Pulse Ox 97.6 F 131 H 19 150/82 98 03/16/18 16:42 03/16/18 16:42 03/16/18 16:42 03/16/18 16:42 03/16/18 16:42 Intake and Output: 03/16/18 03/16/18 06:59 18:59 Intake Total 2400 3075 Output Total 1000 480 Balance 1400 2595 - Medications Medications: Current Medications Hydromorphone HCl (Dilaudid) 0.5 mg IVP Q3H PRN PRN Reason: Pain, moderate (4-7) Hydromorphone HCl (Dilaudid) 0.5 mg IVP Q15M PRN PRN Reason: Pain, severe (8-10) Stop: 03/16/18 22:00 Last Admin: 03/16/18 17:30 Dose: 0.5 mg Metronidazole (Flagyl) 500 mg in 100 mls @ 100 mls/hr IVPB Q8H VLAD; Protocol Stop: 03/17/18 17:44 Piperacillin Sod/Tazobactam Sod (Zosyn 3.375 Gm Iv Premix) 3.375 gm in 50 mls @ 100 mls/hr IVPB Q6H VLAD; Protocol Stop: 03/17/18 11:14 Sodium Chloride (Sodium Chloride 0.9%) 1,000 mls @ 100 mls/hr IV .Q10H [facility] Influenza Virus Vaccine (Fluzone Quad [id number]) 60 mcg IM .ONCE ONE Stop: 03/18/18 10:01 Ondansetron HCl (Zofran Inj) 4 mg IVP Q6 PRN PRN Reason: Nausea/Vomiting Ondansetron HCl (Zofran Inj) 4 mg IVP ONCE PRN PRN Reason: Nausea/Vomiting Stop: 03/16/18 19:14 Pneumococcal Polyvalent Vaccine (Pneumovax 23 Vaccine) 0.5 ml IM .ONCE ONE Stop: 03/18/18 10:01 - Labs Labs: 03/16/18 17:27 03/16/18 07:10 PT 13.0 SECONDS (9.7-12.2) H 03/16/18 07:10 INR 1.2 03/16/18 07:10 APTT 29 SECONDS (21-34) 03/16/18 07:10 Attending/Attestation - Attestation I have personally seen and examined this patient.: Yes I have fully participated in the care of the patient.: Yes I have reviewed all pertinent clinical information, including history, physical exam and plan: Yes Notes (Text): 03/16/18 18:08 Medical attending: Patient was seen and examined by me earlier in the day with the medical residents. I reviewed the above note by the residents and agree with the above note. He reported some relief with the NGT. We are continue with the IVF and pain control. Later in the afternoon I spoke with the surgical residents about the operation and unfortunately he has extensive malignancy when they did the resection. They were able to take out some lymph nodes as well, however there were some nodes that they could not remove, also they were not able to do liver biopsy at the moment. We will have to monitor the CBC and CMP afterwards. There are orders for one un it of PRBCs at this moment Nimesh Amaya
[2018-03-16] MEDS ORDERED: Propofol 10 mg/ml Inj (20 ML) ONE (14:23)
[2018-03-16] MEDS ORDERED: Midazolam 2 MG/2 ML VIAL ONE (14:23)
[2018-03-16] MEDS ORDERED: metroNIDAZOLE IV 500 mg/100 ml 500 MG/100 ML BAG ONE (14:54)
[2018-03-16] MEDS ORDERED: ceFAZolin 1 gm FROZEN Premix 2 GM/100 ML ML IVPB ONE (14:54)
[2018-03-16] MEDS ORDERED: Neostigmine Methylsulfate 3mg/3ml Syringe IV ONE (16:10)
[2018-03-16] MEDS ORDERED: Morphine 4 MG/ML VIAL ONE (16:27)
--- NOTE | 2018-03-16 16:38 | PCM.SURG1 ---
Surgeon's Initial Post Op Note - Surgeon's Notes Surgeon: Dr Mai Car Racer: Dr Viera PGY4, Dr Hernandez PGY3, Gab MS3 Type of Anesthesia: General Endo Pre-Operative Diagnosis: bowel obstruction Operative Findings: phlegmonous mass in cecum causing obstruction Post-Operative Diagnosis: right colon mass Operation Performed: exploratory laparotomy. right hemicolectomy Specimen/Specimens Removed: right colon Estimated Blood Loss: EBL {In ML}: 600 Blood Products Given: PRBC (x 2 ) Drains Used: Enio Post-Op Condition: Good Date of Surgery/Procedure: 03/16/18 Time of Surgery/Procedure: 16:37
[2018-03-16] MEDS ORDERED: metroNIDAZOLE IV 500 mg/100 ml 500 MG/100 ML BAG IVPB SCH (16:45)
--- NOTE | 2018-03-16 17:18 | RAD ---
Date of service: 03/16/2018 HISTORY: NGT placement COMPARISON: No prior. FINDINGS: In situ NGT, the tip of which lies in the right hilar region likely within the distal right mainstem bronchus. This must be withdrawn and repositioned.. Note these findings were discussed with PACU Nurse Sanjuanacjaswant at approximately 5:13 p.m. with written down and read back verification. LUNGS: Patchy atelectatic and or infiltrate changes left lung base. Mild linear atelectasis right lung base. PLEURA: No significant pleural effusion identified, no pneumothorax apparent. CARDIOVASCULAR: No aortic atherosclerotic calcification present. Normal cardiac size. No pulmonary vascular congestion. OSSEOUS STRUCTURES: No significant abnormalities. VISUALIZED UPPER ABDOMEN: Normal. OTHER FINDINGS: None. IMPRESSION: In situ NGT, the tip of which lies in the right hilar region likely within the distal right mainstem bronchus. This must be withdrawn and repositioned. Note these findings were discussed with PACU Nurse Ashely at approximately 5:13 p.m. with written down and read back verification . Bibasilar atelectasis left greater than right however developing left lower lobe infiltrate not completely excluded..
--- NOTE | 2018-03-16 17:19 | RAD ---
Date of service: 03/16/2018 HISTORY: NGT placement COMPARISON: Chest radiograph performed approximately 10 minutes prior. FINDINGS: LUNGS: Bibasilar atelectasis. PLEURA: No significant pleural effusion identified, no pneumothorax apparent. CARDIOVASCULAR: No aortic atherosclerotic calcification present. Normal cardiac size. No pulmonary vascular congestion. OSSEOUS STRUCTURES: Unchanged. VISUALIZED UPPER ABDOMEN: Partially imaged midline skin marielena. OTHER FINDINGS: Enteric tube with tip in the stomach and side hole at the gastroesophageal junction. IMPRESSION: Enteric tube tip in the stomach with side hole just above the gastroesophageal junction. Mild advancement is recommended. No other significant interval change.
[2018-03-16] MEDS: HYDROmorphone 0.5 mg/0.5 ml ISec IVP PRN ×5 (17:30→22:26)
[2018-03-16] MEDS ORDERED: Sodium Chloride 0.9% 1,000 ML IV ONE ×2 (18:00→19:45)
[2018-03-16 21:52] LABS: HEMOGLOBIN 8.3 g/dL (12.0-18.0)
[2018-03-16] MEDS: Piperacill/Tazo 3.375gm in Dex 3.375 GM/50 ML BAG IVPB SCH (22:31)
[2018-03-17] MEDS: HYDROmorphone 0.5 mg/0.5 ml ISec IVP PRN ×5 (01:27→18:48)
[2018-03-17] MEDS: Sodium Chloride 0.9% 1,000 ML IV SCH ×3 (02:44→14:09)
[2018-03-17] MEDS: Piperacill/Tazo 3.375gm in Dex 3.375 GM/50 ML BAG IVPB SCH ×2 (05:36→11:12)
--- NOTE | 2018-03-17 08:17 | CP.PCM.PN ---
Subjective - Date & Time of Evaluation Date of Evaluation: 03/17/18 Time of Evaluation: 07:00 - Subjective Subjective: Patient examined at bedside. No acute events overnight. Patient reports improved abdominal pain, however not relieved with pain medication. Denies chest pain, SOB, nausea, vomiting, BM Objective - Vital Signs/Intake and Output Vital Signs (last 24 hours): Temp Pulse Resp BP Pulse Ox 98 F 116 H 20 130/89 96 03/17/18 05:36 03/17/18 05:36 03/17/18 05:36 03/17/18 05:36 03/17/18 01:40 Intake and Output: 03/17/18 03/17/18 06:59 18:59 Intake Total 1675 Output Total 675 Balance 1000 - Medications Medications: Current Medications Acetaminophen (Tylenol 325mg Tab) 650 mg PO Q6 PRN PRN Reason: Pain, Mild (1-3) Hydromorphone HCl (Dilaudid) 0.5 mg IVP Q3H PRN PRN Reason: Pain, moderate (4-7) Last Admin: 03/17/18 05:29 Dose: 0.5 mg Metronidazole (Flagyl) 500 mg in 100 mls @ 100 mls/hr IVPB Q8H VLAD; Protocol Stop: 03/17/18 17:44 Last Admin: 03/17/18 05:38 Dose: 100 mls/hr Piperacillin Sod/Tazobactam Sod (Zosyn 3.375 Gm Iv Premix) 3.375 gm in 50 mls @ 100 mls/hr IVPB Q6H VLAD; Protocol Stop: 03/17/18 11:14 Last Admin: 03/17/18 05:36 Dose: 100 mls/hr Sodium Chloride (Sodium Chloride 0.9%) 1,000 mls @ 100 mls/hr IV .Q10H VLAD Last Admin: 03/17/18 02:44 Dose: Not Given Influenza Virus Vaccine (Fluzone Quad [id number]) 60 mcg IM .ONCE ONE Stop: 03/18/18 10:01 Ondansetron HCl (Zofran Inj) 4 mg IVP Q6 PRN PRN Reason: Nausea/Vomiting Pneumococcal Polyvalent Vaccine (Pneumovax 23 Vaccine) 0.5 ml IM .ONCE ONE Stop: 03/18/18 10:01 - Labs Labs: 03/16/18 21:46 10/31/18 07:10 PT 13.0 SECONDS (9.7-12.2) H 03/16/18 07:10 INR 1.2 03/16/18 07:10 APTT 29 SECONDS (21-34) 03/16/18 07:10 - Constitutional Appears: Non-toxic, No Acute Distress - Head Exam Head Exam: ATRAUMATIC, NORMAL INSPECTION, NORMOCEPHALIC - Eye Exam Eye Exam: EOMI, Normal appearance - ENT Exam ENT Exam: Mucous Membranes Moist, Normal Exam - Neck Exam Neck Exam: Normal Inspection - Respiratory Exam Respiratory Exam: NORMAL BREATHING PATTERN. absent: Respiratory Distress - Cardiovascular Exam Cardiovascular Exam: REGULAR RHYTHM - GI/Abdominal Exam GI & Abdominal Exam: Soft, Tenderness (diffusely tender to palpation), Normal Bowel Sounds Additional comments: midline incision bandaged clean/dry/intact. No surrounding erythema. TTP para- incisional. Enio with SS drainage. - Neurological Exam Neurological Exam: Alert, Awake, Oriented x3 - Psychiatric Exam Psychiatric exam: Normal Affect, Normal Mood - Skin Skin Exam: Dry, Normal Color, Warm Assessment and Plan - Assessment and Plan (Free Text) Assessment: 42 year old male s/p ex-lap, right hemicolectomy w/ anastomosis due to cecal obstruction, POD #1 Plan: -s/p 2U PRBC overnight, hgb 9.3 today -NPO -NGT -IVF @125 -pain control PRN, dilaudid 1mg q3, toradol -encourage ambulation, PT -f/u am labs -tachycardia likely 2/2 to pain -consider clamping tube tomorrow -ADAT -f/u pathology -medical care per primary Will discuss with Dr. Pau Castillo, PGY-1
[2018-03-17 11:26] LABS: HEMOGLOBIN 9.3 g/dL (12.0-18.0); MEAN CORPUSCULAR HEMOGLOBIN 20.7 pg (27.0-31.0); MEAN CORPUSCULAR HGB CONC 31.9 g/dL (33.0-37.0); MEAN PLATELET VOLUME 9.3 fL (7.2-11.7); RBC 4.49 Mil/uL (4.40-5.90); RED CELL DISTRIBUTION WIDTH 25.8 % (11.5-14.5); WHITE BLOOD COUNT 7.6 K/uL (4.8-10.8)
[2018-03-17 11:31] LABS: INR 1.5
[2018-03-17 11:40] LABS: MEAN CELL VOLUME 64.9 fL (80.0-94.0)
[2018-03-17 11:51] LABS: ALB/GLOB RATIO 1.2 (1.0-2.1); ALBUMIN 3.1 g/dL (3.5-5.0); ALT/SGPT 18 U/L (21-72); AST/SGOT 20 U/L (17-59); BLOOD UREA NITROGEN 13 mg/dL (9-20); CALCIUM 8.1 mg/dl (8.6-10.4); GFR NON-AFRICAN AMERICAN > 60
[2018-03-17 12:28] LABS: TOTAL PSA 0.2 ng/mL (< or = 4.0)
[2018-03-17 12:30] LABS: LYMPH # 0.7 K/uL (1.0-4.3); MONO # 0.5 K/uL (0.0-0.8); NEUT # 6.4 K/uL (1.8-7.0)
--- NOTE | 2018-03-17 12:52 | CP.PCM.PN ---
<Toney Raman - Last Filed: 03/17/18 16:13> Subjective - Date & Time of Evaluation Date of Evaluation: 03/17/18 Time of Evaluation: 12:46 - Subjective Subjective: PGY-[address] Amaya Patient seen and examined at bedside. S/p ex-lap yesterday 03/16 with R hemicolectomy. Patient in no acute distress, but complaining of 5/10 abdominal pain, primarily in the RLQ. Patient has not yet had a bowel movement. Patient states he has gotten accustomed to NG tube. Patient amenable to remaining hospitalized while we treat his SBO and begin to advance his diet. Denies chest pain, palpitations, headache, shortness of breath, dizziness. Objective - Vital Signs/Intake and Output Vital Signs (last 24 hours): Temp Pulse Resp BP Pulse Ox 99.4 F 119 H 18 137/82 97 03/17/18 07:45 03/17/18 07:45 03/17/18 07:45 03/17/18 07:45 03/17/18 07:45 Intake and Output: 03/17/18 03/17/18 06:59 18:59 Intake Total 1675 Output Total 675 Balance 1000 - Medications Medications: Current Medications Acetaminophen (Tylenol 325mg Tab) 650 mg PO Q6 PRN PRN Reason: Pain, Mild (1-3) Hydromorphone HCl (Dilaudid) 1 mg IVP Q3H PRN PRN Reason: Pain, moderate (4-7) Last Admin: 03/17/18 11:25 Dose: 1 mg Sodium Chloride (Sodium Chloride 0.9%) 1,000 mls @ 100 mls/hr IV .Q10H [facility] Last Admin: 03/17/18 02:44 Dose: Not Given Metronidazole (Flagyl) 500 mg in 100 mls @ 100 mls/hr IVPB Q8H [facility]; Protocol Stop: 03/18/18 14:39 Influenza Virus Vaccine (Fluzone Quad [id number]) 60 mcg IM .ONCE ONE Stop: 03/18/18 10:01 Ondansetron HCl (Zofran Inj) 4 mg IVP Q6 PRN PRN Reason: Nausea/Vomiting Pneumococcal Polyvalent Vaccine (Pneumovax 23 Vaccine) 0.5 ml IM .ONCE ONE Stop: 03/18/18 10:01 - Labs Labs: 03/17/18 11:07 03/17/18 11:07 PT 16.0 SECONDS (9.7-12.2) H 03/17/18 11:07 INR 1.5 03/17/18 11:07 APTT 28 SECONDS (21-34) 03/17/18 11:07 - Constitutional Appears: Non-toxic, No Acute Distress - Head Exam Head Exam: ATRAUMATIC, NORMAL INSPECTION - Eye Exam Eye Exam: EOMI, Normal appearance - ENT Exam ENT Exam: Mucous Membranes Moist Additional comments: NG tube in place - Respiratory Exam Respiratory Exam: Clear to Ausculation Bilateral. absent: Rales, Rhonchi, Wheezes - Cardiovascular Exam Cardiovascular Exam: +S1, +S2. absent: Murmur Additional comments: tachycardic on exam - GI/Abdominal Exam GI & Abdominal Exam: Soft, Normal Bowel Sounds. absent: Tenderness, Rebound - Extremities Exam Extremities Exam: Normal Inspection. absent: Pedal Edema, Tenderness - Neurological Exam Neurological Exam: Alert, Awake, CN II-XII Intact, Oriented x3 - Psychiatric Exam Psychiatric exam: Normal Affect, Normal Mood - Skin Skin Exam: Dry, Intact, Normal Color, Warm Assessment and Plan - Assessment and Plan (Free Text) Assessment: SBO - CT abd: small bowel thickening, dilated fluid-filled small bowel loops concerning for obstruction with transition pt on the L. abnormal cecum and terminal ileum, 3 hepatic hypodense masses, bulky retroperitoneal/mesenteric adenopathy, and dilated appendix - afebrile - Leukocytosis resolved - NPO - NG tube draining thick, green liquid - 200ccs today - low intermittent suction - CXR: lateral L basal subsegmental atelectatic change, NG tube in stomach - NS 1000ml @100cc/hr - zofran 4mg IV q6h PRN - f/u ABG at 18:00 - GI consulted, Dr. 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 Requiring surgical ex-lap. -Surgery Consulted, Dr. Mai --Patient went to OR yesterday for ex lap with R hemicolectomy. Operative findings include phlegmonous mass in the cecum causing obstruction- post-op diagnosis of right colon mass. Some lymph nodes were removed, but not all lymph nodes were able to be removed safely. --NG tube remains in place --Will advance diet as tolerated -Pain control: --Dilaudid 1mg IVP Q3 prn --Toradol IVP Q6 prn Colonic/Hepatic Lesions - CT abd: small bowel thickening, dilated fluid-filled small bowel loops concerning for obstruction with transition pt on the L. abnormal cecum and terminal ileum, 3 hepatic hypodense masses, bulky retroperitoneal/mesenteric adenopathy, and dilated appendix - f/u CA19-9, CEA - PSA, AFP negaive, GGT WNL - FOBT negative - Heme/onc consulted: Dr. Fabian - f/u recs - Head CT w/ IV contrast 03/16/2018- Normal contrast enhanced CT of the head - Chest CT with IV contrast 03/16/2018 - Right lower lobe subsegmental atelectasis. No nodule, mass, consolidation, or evidence of enlarged lymphadenopathy. Malpositioned enteric tube with tip terminating in the mid esophagus. -See GI and surgery recs above Microcytic Anemia - H/H 9.3/29.1 - MCV low - likely secondary to malignancy - Fe studies --Iron deficiency - Fe 19 --TIBC WNL --B12, Folate WNL PPX: GI: not indicated at this time DVT: SCDs NPO Dispo: 42 year old male with colon mass and and suspected mets to liver. Awaiting pathology results and heme/onc recs. Pain control, begin to advance diet as tolerated. Assessment and plan d/w Dr. Monique Raman, PGY-1 <Nimesh Amaya H - Last Filed: 03/20/18 07:06> Objective - Vital Signs/Intake and Output Vital Signs (last 24 hours): Temp Pulse Resp BP Pulse Ox 98.8 F 96 H 20 131/90 96 03/20/18 04:41 03/20/18 04:41 03/20/18 04:41 03/20/18 04:41 03/20/18 04:41 Intake and Output: 03/20/18 03/20/18 06:59 18:59 Output Total Balance - Medications Medications: Current Medications Famotidine (Pepcid) 20 mg IVP Q12 VLAD Last Admin: 03/19/18 21:03 Dose: 20 mg Ferric Sodium Gluconate Complex 125 mg/ Sodium Chloride 110 mls @ 100 mls/hr IVPB DAILY VLAD Stop: 03/28/18 10:01 Ketorolac Tromethamine (Toradol) 30 mg IVP Q6 PRN PRN Reason: Pain, moderate (4-7) Last Admin: 03/19/18 23:49 Dose: 30 mg Ondansetron HCl (Zofran Inj) 4 mg IVP Q6 PRN PRN Reason: Nausea/Vomiting Oxycodone/Acetaminophen (Percocet 5/325 Mg Tab) 1 tab PO Q4H PRN PRN Reason: Pain, moderate (4-7) Stop: 03/22/18 12:01 Last Admin: 03/20/18 05:29 Dose: 1 tab - Labs Labs: 03/20/18 00:15 03/19/18 07:07 PT 16.0 SECONDS (9.7-12.2) H 03/17/18 11:07 INR 1.5 03/17/18 11:07 APTT 28 SECONDS (21-34) 03/17/18 11:07 Attending/Attestation - Attestation I have personally seen and examined this patient.: Yes I have fully participated in the care of the patient.: Yes I have reviewed all pertinent clinical information, including history, physical exam and plan: Yes Notes (Text): Medical attending: The Patient was seen and examined by me. Agree with the above note by the resident The patient was not in any acute distress when I came and saw him, patient was S/P operation. At that time he still had NGT remaining and also a MIRIAN drain as well. I explained to patient that we would be making further adjustments to pain medication and also have to wait for the results of the operation to further identify what type of cancer this was. Nimesh Amaya
[2018-03-17] MEDS: metroNIDAZOLE IV 500 mg/100 ml 500 MG/100 ML BAG IVPB SCH ×2 (14:01→22:40)
[2018-03-17] MEDS: Potassium Ch 20mEq in D5-1/2NS 1,000 ML IV SCH (20:37)
[2018-03-17] MEDS ORDERED: Lactated Ringer's 1,000 ML IV ONE (22:52)
[2018-03-18] MEDS: HYDROmorphone 0.5 mg/0.5 ml ISec IVP PRN ×3 (00:28→17:31)
[2018-03-18] MEDS: Potassium Ch 20mEq in D5-1/2NS 1,000 ML IV SCH ×4 (03:34→21:26)
[2018-03-18] MEDS: metroNIDAZOLE IV 500 mg/100 ml 500 MG/100 ML BAG IVPB SCH ×2 (05:41→17:32)
[2018-03-18 07:39] LABS: BASO % 0.5 % (0.0-2.0); EOS # 0.1 K/uL (0.0-0.7); EOS % 2.3 % (0.0-4.0); LYMPH # 0.7 K/uL (1.0-4.3); LYMPH % 11.9 % (20.0-40.0); MEAN CELL VOLUME 64.6 fL (80.0-94.0); MEAN CORPUSCULAR HEMOGLOBIN 20.2 pg (27.0-31.0); MEAN CORPUSCULAR HGB CONC 31.3 g/dL (33.0-37.0); MEAN PLATELET VOLUME 8.7 fL (7.2-11.7); MONO # 0.8 K/uL (0.0-0.8); NEUT # 4.6 K/uL (1.8-7.0); NEUT % 73.3 % (50.0-75.0); NRBC % 0.5 % (0.0-2.0); RBC 3.59 Mil/uL (4.40-5.90); RED CELL DISTRIBUTION WIDTH 26.4 % (11.5-14.5); WHITE BLOOD COUNT 6.3 K/uL (4.8-10.8)
[2018-03-18 07:43] LABS: HEMOGLOBIN 7.3 g/dL (12.0-18.0)
[2018-03-18 09:08] LABS: ALB/GLOB RATIO 1.1 (1.0-2.1); ALBUMIN 2.8 g/dL (3.5-5.0); ALT/SGPT 19 U/L (21-72); AST/SGOT 21 U/L (17-59); BLOOD UREA NITROGEN 14 mg/dL (9-20); CALCIUM 7.9 mg/dl (8.6-10.4); GFR NON-AFRICAN AMERICAN > 60
[2018-03-18] MEDS ORDERED: Influenza Vaccine 60 MCG/0.5 ML SYR (3 yr & up) IM ONE (10:00)
[2018-03-18] MEDS ORDERED: Pneumococcal 23-Valent Vaccine IM ONE (10:00)
--- NOTE | 2018-03-18 15:27 | CP.PCM.PN ---
Subjective - Date & Time of Evaluation Date of Evaluation: 03/18/18 Time of Evaluation: 07:50 - Subjective Subjective: surgery progress note for Dr. Mai Patient examined at bedside. No acute events overnight. Patient reports improvement in pain with pain medication. NGT taken out today. Patient reports he has been tolerating clear liquid diet and has been ambulating without difficulty. Denies nausea, vomiting, flatus, bowel movement. Objective - Vital Signs/Intake and Output Vital Signs (last 24 hours): Temp Pulse Resp BP Pulse Ox 98.9 F 96 H 20 115/75 95 03/18/18 15:02 03/18/18 15:02 03/18/18 15:02 03/18/18 15:02 03/18/18 10:00 Intake and Output: 03/18/18 03/18/18 06:59 18:59 Intake Total 2725 325 Output Total 865 Balance 1860 325 - Medications Medications: Current Medications Hydromorphone HCl (Dilaudid) 1 mg IVP Q3H PRN PRN Reason: Pain, moderate (4-7) Last Admin: 03/18/18 10:43 Dose: 1 mg Potassium Chloride/Dextrose/Sod Cl (Potassium Chl 20 Meq In D5-1/2ns) 1,000 mls @ 125 mls/hr IV .Q8H VLAD Stop: 03/19/18 18:01 Last Admin: 03/18/18 05:40 Dose: 125 mls/hr Ketorolac Tromethamine (Toradol) 30 mg IVP Q6 PRN PRN Reason: Pain, moderate (4-7) Last Admin: 03/18/18 14:32 Dose: 30 mg Ondansetron HCl (Zofran Inj) 4 mg IVP Q6 PRN PRN Reason: Nausea/Vomiting - Labs Labs: 03/18/18 07:25 03/18/18 07:25 PT 16.0 SECONDS (9.7-12.2) H 03/17/18 11:07 INR 1.5 03/17/18 11:07 APTT 28 SECONDS (21-34) 03/17/18 11:07 - Constitutional Appears: Non-toxic, No Acute Distress - Head Exam Head Exam: ATRAUMATIC, NORMAL INSPECTION, NORMOCEPHALIC - Eye Exam Eye Exam: EOMI, Normal appearance - ENT Exam ENT Exam: Mucous Membranes Moist, Normal Exam - Neck Exam Neck Exam: Normal Inspection - Respiratory Exam Respiratory Exam: NORMAL BREATHING PATTERN. absent: Respiratory Distress - Cardiovascular Exam Cardiovascular Exam: REGULAR RHYTHM - GI/Abdominal Exam GI & Abdominal Exam: Soft, Tenderness (diffuse minimal tenderness to palpation), Normal Bowel Sounds Additional comments: midline incision stapled. No surrounding erythema or drainage from site. Right MIRIAN with minimal sero-sanguineous drainage. - Extremities Exam Extremities Exam: Normal Inspection. absent: Calf Tenderness, Pedal Edema - Neurological Exam Neurological Exam: Alert, Awake, Oriented x3 - Psychiatric Exam Psychiatric exam: Normal Affect, Normal Mood - Skin Skin Exam: Dry, Normal Color, Warm Assessment and Plan - Assessment and Plan (Free Text) Assessment: 42 year old male s/p right hemicolectomy with anastomosis 2/2 cecal obstruction Plan: -malignancy suspected, f/u pathology -s/p 1U PRBC for hgb of 7.3 -f/u repeat H/H -NGT pulled -ADAT -monitor for bowel function -IVF -zofran PRN -pain medication PRN -encourage ambulation Will discuss with Dr. Pau Castillo, PGY-1
--- NOTE | 2018-03-18 16:26 | CP.PCM.PN ---
Subjective - Date & Time of Evaluation Date of Evaluation: 03/18/18 Time of Evaluation: 16:09 - Subjective Subjective: PGY-[address] Richard Patient seen and examined at bedside. No acute events overnight. Patient has not yet had a bowel movement or passed gas. He is eager to start eating once he is passing gas and surgery ok with advancing diet. Pain is much better controlled at 4/10, patient states pain level is tolerable. Patient receiving 1 unit PRBCs for HgB 7.4. Otherwise patient denies chest pain, shortness of breath, nausea, vomiting, dizziness, lightheadedness, fatigue. Objective - Vital Signs/Intake and Output Vital Signs (last 24 hours): Temp Pulse Resp BP Pulse Ox 98.9 F 96 H 20 115/75 95 03/18/18 15:02 03/18/18 15:02 03/18/18 15:02 03/18/18 15:02 03/18/18 10:00 Intake and Output: 03/18/18 03/18/18 06:59 18:59 Intake Total 2725 325 Output Total 865 Balance 1860 325 - Medications Medications: Current Medications Hydromorphone HCl (Dilaudid) 1 mg IVP Q3H PRN PRN Reason: Pain, moderate (4-7) Last Admin: 03/18/18 10:43 Dose: 1 mg Potassium Chloride/Dextrose/Sod Cl (Potassium Chl 20 Meq In D5-1/2ns) 1,000 mls @ 125 mls/hr IV .Q8H VLAD Stop: 03/19/18 18:01 Last Admin: 03/18/18 05:40 Dose: 125 mls/hr Ketorolac Tromethamine (Toradol) 30 mg IVP Q6 PRN PRN Reason: Pain, moderate (4-7) Last Admin: 03/18/18 14:32 Dose: 30 mg Ondansetron HCl (Zofran Inj) 4 mg IVP Q6 PRN PRN Reason: Nausea/Vomiting - Labs Labs: 03/18/18 07:25 03/18/18 07:25 PT 16.0 SECONDS (9.7-12.2) H 03/17/18 11:07 INR 1.5 03/17/18 11:07 APTT 28 SECONDS (21-34) 11/01/18 11:07 - Constitutional Appears: Well, Non-toxic, No Acute Distress - Head Exam Head Exam: ATRAUMATIC, NORMOCEPHALIC - Eye Exam Eye Exam: EOMI, Normal appearance Additional comments: Conjunctival pallor - ENT Exam ENT Exam: Mucous Membranes Moist - Neck Exam Neck Exam: Full ROM. absent: Tenderness - Respiratory Exam Respiratory Exam: Clear to Ausculation Bilateral, NORMAL BREATHING PATTERN. absent: Rales, Rhonchi, Wheezes - Cardiovascular Exam Cardiovascular Exam: REGULAR RHYTHM, RRR, +S1, +S2. absent: Murmur - GI/Abdominal Exam GI & Abdominal Exam: Soft, Tenderness (RLQ tenderness). absent: Normal Bowel Sounds (Decreased bowel sounds) Additional comments: NG tube drained 300ccs fluid - Extremities Exam Extremities Exam: Normal Inspection. absent: Pedal Edema, Tenderness - Neurological Exam Neurological Exam: Alert, Awake, CN II-XII Intact, Oriented x3 - Psychiatric Exam Psychiatric exam: Normal Affect, Normal Mood - Skin Skin Exam: Dry, Intact, Pallor, Warm Assessment and Plan - Assessment and Plan (Free Text) Assessment: SBO - CT abd: small bowel thickening, dilated fluid-filled small bowel loops co ncerning for obstruction with transition pt on the L. abnormal cecum and terminal ileum, 3 hepatic hypodense masses, bulky retroperitoneal/mesenteric adenopathy, and dilated appendix - afebrile - Has not yet had a BM or passed gas - Leukocytosis resolved - NPO - CXR: lateral L basal subsegmental atelectatic change, NG tube in stomach - KCl in D5-/ NS @125cc/hr - zofran 4mg IV q6h PRN - GI consulted, Dr. 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 Requiring surgical ex-lap. -Surgery Consulted, Dr. Mai --Patient went to OR 03/16 for ex lap with R hemicolectomy. Operative findings include phlegmonous mass in the cecum causing obstruction- post-op diagnosis of right colon mass. Some lymph nodes were removed, but not all lymph nodes were able to be removed safely. --NG tube pulled this morning 03/18. Drained 300 ccs of bilious fluid. --Will advance diet as tolerated -Pain control: --Dilaudid 1mg IVP Q3 prn --Toradol IVP Q6 prn Colonic/Hepatic Lesions - CT abd: small bowel thickening, dilated fluid-filled small bowel loops concerning for obstruction with transition pt on the L. abnormal cecum and terminal ileum, 3 hepatic hypodense masses, bulky retroperitoneal/mesenteric a denopathy, and dilated appendix - CA19-9, CEA, PSA, AFP negaive, GGT WNL - FOBT negative 03/15 - Heme/onc consulted: Dr. Fabian - Dr. Conway consulted for second opinion, help greatly appreciated - Head CT w/ IV contrast 03/16/2018- Normal contrast enhanced CT of the head - Chest CT with IV contrast 03/16/2018 - Right lower lobe subsegmental atelectasis. No nodule, mass, consolidation, or evidence of enlarged lymphadenopathy. Malpositioned enteric tube with tip terminating in the mid esophagus. -See GI and surgery recs above Microcytic Anemia - H/H 7.3/23.2 - --Patient currently receiving one unit PRBCs, rechecking CBC at 20:00 - MCV low - likely secondary to malignancy and/or surgery - Fe studies --Iron deficiency - Fe 19 --TIBC WNL --B12, Folate WNL PPX: GI: not indicated at this time DVT: SCDs NPO Dispo: 42 year old male with colon mass and and suspected mets to liver. Awaiting pathology results and heme/onc recs. Pain control, begin to advance diet as tolerated. Assessment and plan d/w Dr. Hilary Raman, PGY-1
[2018-03-18 19:43] LABS: HEMOGLOBIN 8.1 g/dL (12.0-18.0); MEAN CELL VOLUME 67.7 fL (80.0-94.0); MEAN CORPUSCULAR HEMOGLOBIN 21.2 pg (27.0-31.0); MEAN CORPUSCULAR HGB CONC 31.4 g/dL (33.0-37.0); MEAN PLATELET VOLUME 9.1 fL (7.2-11.7); RBC 3.83 Mil/uL (4.40-5.90); RED CELL DISTRIBUTION WIDTH 28.3 % (11.5-14.5); WHITE BLOOD COUNT 7.5 K/uL (4.8-10.8)
--- NOTE | 2018-03-18 21:27 | CARD ---
APPROVED REPORT Date of service: 03/16/2018 EKG Measurement Heart [id number] <Conclusion> Normal sinus rhythm Normal ECG
[2018-03-19] MEDS: HYDROmorphone 0.5 mg/0.5 ml ISec IVP PRN ×2 (00:04→07:59)
[2018-03-19] MEDS: Potassium Ch 20mEq in D5-1/2NS 1,000 ML IV SCH ×2 (03:17→10:18)
[2018-03-19 07:40] LABS: HEMOGLOBIN 8.7 g/dL (12.0-18.0); MEAN CORPUSCULAR HEMOGLOBIN 21.6 pg (27.0-31.0); MEAN CORPUSCULAR HGB CONC 32.2 g/dL (33.0-37.0); MEAN PLATELET VOLUME 9.4 fL (7.2-11.7); RBC 4.04 Mil/uL (4.40-5.90); RED CELL DISTRIBUTION WIDTH 28.9 % (11.5-14.5); WHITE BLOOD COUNT 7.5 K/uL (4.8-10.8)
[2018-03-19 07:46] LABS: ALB/GLOB RATIO 1.2 (1.0-2.1); ALT/SGPT 20 U/L (21-72); AST/SGOT 21 U/L (17-59); BLOOD UREA NITROGEN 10 mg/dL (9-20); CALCIUM 8.2 mg/dl (8.6-10.4); GFR NON-AFRICAN AMERICAN > 60
--- NOTE | 2018-03-19 08:46 | OP ---
PROCEDURE DATE: 03/16/2018 PREOPERATIVE DIAGNOSES: Large bowel obstruction, inflammatory mass in right lower quadrant. PROCEDURE: Right hemicolectomy with primary anastomosis. SURGEON: Dalton Mai MD. SLOPE RUNNER: Ochoa Viera DO. INDICATIONS: This is a 42-year-old male who presented with 2 weeks of obstructive symptoms, bilious emesis, right lower quadrant pain, found to have a palpable mass in the right lower quadrant, CT evidence of an inflammatory mass within the cecum. The patient also found to be anemic, so was taken for an emergent resection. DESCRIPTION OF PROCEDURE: The patient was brought to the OR and placed in the supine position. Timeouts were performed using both preinduction and preincision safety check list to verify correct patient, procedure, site, additional critical information prior to the beginning of the procedure. General endotracheal anesthesia was induced. Sequential pneumatic compression devices were placed in the lower extremities. 2 g of Ancef were given preoperatively. No Platt was placed. The nasogastric tube was already in position prior to the beginning of the procedure. The abdomen was then clipped and prepped and draped in usual sterile fashion. Vertical midline incision was made, this was deepened through the subcutaneous tissues and hemostasis was achieved with electrocautery. The linea alba was identified and incised and the peritoneal cavity was entered. The abdomen was then explored. There were no significant amount of adhesions. However, there were at least 3 distinct palpable masses, presumably metastasis on bilateral lobes of the liver. The omentum was inspected for evidence of metastatic disease, which there was none. It was noted that there was a large inflammatory mass within the cecum, possibly extending from the base of the appendix, which could not be identified, which was adhered to the anterior abdominal wall. There were multiple palpable lymph nodes throughout the mesentery itself, though no lesions were identified within the small bowel. At this point, the small bowel was inspected and retracted to the left using moist gauze and a retractor. Using electrocautery, the colon was then freed from the peritoneal attachments to the anterior wall circumferentially around the mass, taking care to not enter the mass. Then the dissection was carried up along the avascular line of Toldt from the cecum to the hepatic flexure. Additional lateral peritoneal coverings were incised and further mobilized to the colon. The dissection was then extended across the ileocolic junction and terminal ileum was mobilized as well. At this point, the right ureter was identified and was protected as well as the duodenum, the right kidney, and the gonadal vessels. The hepatic flexure was carefully mobilized by dividing the peritoneum within the hepatorenal fossa. The points of transection were selected both proximally and distally, proximally about 5 cm proximal to the ileocecal valve and then distally just past the right branch of the middle colic artery. The bowel was then divided with a linear cutting stapler. The peritoneum overlying the mesentery was then scored with electrocautery and the ileocolic artery was identified, taken with the Endoseal device and transected, the right branch and main trunk of the middle colic as well was similarly identified and ligated. When attempting to take the middle colic artery with the Endoseal device, it did not achieve complete hemostasis, so this was doubly ligated with 2-0 silk sutures and transected. At this stage in the surgery, there was a degree of blood loss approximately 400 mL as we attempted to gain control of the right colic artery as well as the right colic vein, but hemostasis was achieved. These were as stated previously double ligated with 2-0 silk sutures. The remaining mesentery and all associated layo tissue were divided and swept down with the specimen. There was significant lymphadenopathy within the mesentery, not allowing for a complete removal of diseased mesentery as this would have required dangerous dissection down to the level of the root of the SMA and would have probably required resection of the SMA itself, thus depriving the patient of blood supply to his small bowel, so the amount of mesentery and lymph node that could safely be resected was therefore resected. The specimen was removed, proximal and distal ends did not need to be tagged as the terminal ileum was present on the proximal end and this was sent to Pathology. Hemostasis was checked within the operative field. The two ends of the bowel were then checked and found to be viable with excellent blood supply. So the proximal and distal segments were brought into opposition and found to lie comfortably next to each other without any tension. Three stay sutures of 3-0 silk were placed to approximate the anti-mesenteric borders of the bowel segment. Enterotomies were made on the anti-mesenteric corner of the staple line on the ileum and the transverse colon and then a linear cutting stapler was inserted and fired, THERON blue load 70. Hemostasis was checked on the staple line. Enterotomies were then closed with a linear stapler, the TA 60. At this point, we had a patent anastomosis that we checked and found to be intact. The mesenteric defect was then closed using 3-0 Vicryl in a continuous fashion. The abdominal cavity was then copiously irrigated and hemostasis was checked. The fascia was then closed with a running looped 0 PDS in a continuous fashion. The skin was then closed with skin marielena. Debriefing checklist was completed to share any information critical to the postoperative care of this patient. All sponge and instrument counts were correct. The patient tolerated the procedure well and was extubated and taken to PACU in stable condition. Approximate blood loss 600 mL. Ochoa Viera DO Dalton Mai MD
[2018-03-19 09:56] LABS: NEUT # 5.9 K/uL (1.8-7.0)
[2018-03-19 09:57] LABS: EOS # 0.3 K/uL (0.0-0.7); LYMPH # 0.8 K/uL (1.0-4.3); MONO # 0.5 K/uL (0.0-0.8)
[2018-03-19 09:58] LABS: MEAN CELL VOLUME 67.2 fL (80.0-94.0)
--- NOTE | 2018-03-19 11:41 | CP.PCM.PN ---
<Jordon Johnson - Last Filed: 03/19/18 11:41> Subjective - Date & Time of Evaluation Date of Evaluation: 03/19/18 Time of Evaluation: 11:30 - Subjective Subjective: Progress note. Attending: Dr. Whittington. Pt seen and examined at bedside. Has had BM. Walking around. No fevers, chills. BM was a little loose. Sx following. Objective - Vital Signs/Intake and Output Vital Signs (last 24 hours): Temp Pulse Resp BP Pulse Ox 98.7 F 90 20 126/84 99 03/19/18 08:33 03/19/18 08:33 03/19/18 08:33 03/19/18 08:33 03/19/18 08:33 Intake and Output: 03/19/18 03/19/18 06:59 18:59 Intake Total 2275 Output Total 355 Balance 1920 - Medications Medications: Current Medications Ketorolac Tromethamine (Toradol) 30 mg IVP Q6 PRN PRN Reason: Pain, moderate (4-7) Last Admin: 03/19/18 10:17 Dose: 30 mg Ondansetron HCl (Zofran Inj) 4 mg IVP Q6 PRN PRN Reason: Nausea/Vomiting Oxycodone/Acetaminophen (Percocet 5/325 Mg Tab) 1 tab PO Q4H PRN PRN Reason: Pain, moderate (4-7) Stop: 03/22/18 10:39 - Labs Labs: 03/19/18 07:07 03/19/18 07:07 PT 16.0 SECONDS (9.7-12.2) H 03/17/18 11:07 INR 1.5 03/17/18 11:07 APTT 28 SECONDS (21-34) 03/17/18 11:07 - Constitutional Appears: Non-toxic, No Acute Distress - Head Exam Head Exam: ATRAUMATIC, NORMAL INSPECTION, NORMOCEPHALIC - Eye Exam Eye Exam: EOMI - ENT Exam ENT Exam: Mucous Membranes Moist - Neck Exam Neck Exam: Full ROM, Normal Inspection - Respiratory Exam Respiratory Exam: absent: Respiratory Distress - Cardiovascular Exam Cardiovascular Exam: +S1, +S2 - GI/Abdominal Exam GI & Abdominal Exam: Soft. absent: Tenderness - Extremities Exam Extremities Exam: Full ROM, Normal Inspection - Back Exam Back Exam: NORMAL INSPECTION - Neurological Exam Neurological Exam: Alert, Awake, Oriented x3 - Psychiatric Exam Psychiatric exam: Normal Affect, Normal Mood - Skin Skin Exam: Dry, Intact, Normal Color, Warm Assessment and Plan - Assessment and Plan (Free Text) Assessment: SBO - CT abd: small bowel thickening, dilated fluid-filled small bowel loops concerning for obstruction with transition pt on the L. abnormal cecum and terminal ileum, 3 hepatic hypodense masses, bulky retroperitoneal/mesenteric adenopathy, and dilated appendix - afebrile - passed first BM - Leukocytosis resolved - liquid diet for now, advance as tolerated - dc fluids per sx - zofran 4mg IV q6h PRN - GI consulted, Dr. 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 Requiring surgical ex-lap. -Surgery Consulted, Dr. Mai --Patient went to OR 03/16 for ex lap with R hemicolectomy. Operative findings include phlegmonous mass in the cecum causing obstruction- post-op diagnosis of right colon mass. Some lymph nodes were removed, but not all lymph nodes were able to be removed safely. --Will advance diet as tolerated -Pain control: --Dilaudid 1mg IVP Q3 prn --Toradol IVP Q6 prn Colonic/Hepatic Lesions - CT abd: small bowel thickening, dilated fluid-filled small bowel loops concerning for obstruction with transition pt on the L. abnormal cecum and terminal ileum, 3 hepatic hypodense masses, bulky retroperitoneal/mesenteric adenopathy, and dilated appendix - CA19-9, CEA, PSA, AFP negaive, GGT WNL - FOBT negative 03/15 - Heme/onc consulted: Dr. Fabian - Dr. Conway consulted for second opinion, help greatly appreciated - Head CT w/ IV contrast 03/16/2018- Normal contrast enhanced CT of the head - Chest CT with IV contrast 03/16/2018 - Right lower lobe subsegmental atelectasis. No nodule, mass, consolidation, or evidence of enlarged lymphadenopathy. Malpositioned enteric tube with tip terminating in the mid esophagus. -See GI and surgery recs above Microcytic Anemia - MCV low - likely secondary to malignancy and/or surgery - Fe studies --Iron deficiency - Fe 19 --TIBC WNL --B12, Folate WNL PPX: GI: not indicated at this time DVT: SCDs liquid diet discussed with Dr. Whittington <Ced Whittington - Last Filed: 03/19/18 18:28> Objective - Vital Signs/Intake and Output Vital Signs (last 24 hours): Temp Pulse Resp BP Pulse Ox 99.2 F 100 H 20 125/84 95 03/19/18 15:00 03/19/18 15:00 03/19/18 15:00 03/19/18 15:00 03/19/18 15:00 Intake and Output: 03/19/18 03/19/18 06:59 18:59 Intake Total 2275 800 Output Total 355 30 Balance 1920 770 - Medications Medications: Current Medications Ferric Sodium Gluconate Complex 125 mg/ Sodium Chloride 110 mls @ 100 mls/hr IVPB DAILY VLAD Stop: 03/28/18 10:01 Ketorolac Tromethamine (Toradol) 30 mg IVP Q6 PRN PRN Reason: Pain, moderate (4-7) Last Admin: 03/19/18 17:12 Dose: 30 mg Ondansetron HCl (Zofran Inj) 4 mg IVP Q6 PRN PRN Reason: Nausea/Vomiting Oxycodone/Acetaminophen (Percocet 5/325 Mg Tab) 1 tab PO Q4H PRN PRN Reason: Pain, moderate (4-7) Stop: 03/22/18 12:01 Last Admin: 03/19/18 13:44 Dose: 1 tab - Labs Labs: 03/19/18 07:07 03/19/18 07:07 PT 16.0 SECONDS (9.7-12.2) H 03/17/18 11:07 INR 1.5 03/17/18 11:07 APTT 28 SECONDS (21-34) 03/17/18 11:07 Attending/Attestation - Attestation I have personally seen and examined this patient.: Yes I have fully participated in the care of the patient.: Yes I have reviewed all pertinent clinical information, including history, physical exam and plan: Yes Notes (Text): seen and examined with the resident Patient is feeling better,s/p right hemicolectomy, tolerating liquids,follow surgery recommendation follow biopsy report d/w Dr Conway.we will follow his recommendation s/p blood transfusion follow cbc
[2018-03-19] MEDS: Oxycodone/Acetaminophen 5/325 mg Tab PO PRN ×2 (13:44→21:13)
[2018-03-20 00:18] LABS: HEMOGLOBIN 8.6 g/dL (12.0-18.0)
[2018-03-20] MEDS: Oxycodone/Acetaminophen 5/325 mg Tab PO PRN ×3 (05:29→17:21)
[2018-03-20 08:38] LABS: MEAN CELL VOLUME 66.7 fL (80.0-94.0); MEAN CORPUSCULAR HEMOGLOBIN 21.5 pg (27.0-31.0); MEAN CORPUSCULAR HGB CONC 32.2 g/dL (33.0-37.0); MEAN PLATELET VOLUME 8.8 fL (7.2-11.7); RBC 4.19 Mil/uL (4.40-5.90); RED CELL DISTRIBUTION WIDTH 29.1 % (11.5-14.5); WHITE BLOOD COUNT 7.2 K/uL (4.8-10.8)
--- NOTE | 2018-03-20 08:43 | CP.PCM.PN ---
Subjective - Date & Time of Evaluation Date of Evaluation: 03/20/18 Time of Evaluation: 08:42 - Subjective Subjective: Surgery: Dr. Mai Pt seen and examined. Overnight nursing reported increased output in the holland drain so an H/H was repeated and stable. Pt otherwise denies any complaints. States his pain is well controlled and he was able to tolerate regular diet yesterday. Pt is having bowel movements/flatus. Denies nausea/vomiting, fevers/chills. Objective - Vital Signs/Intake and Output Vital Signs (last 24 hours): Temp Pulse Resp BP Pulse Ox 98.8 F 96 H 20 131/90 96 03/20/18 04:41 03/20/18 04:41 03/20/18 04:41 03/20/18 04:41 03/20/18 04:41 Intake and Output: 03/20/18 03/20/18 06:59 18:59 Output Total Balance - Medications Medications: Current Medications Famotidine (Pepcid) 20 mg IVP Q12 VLAD Last Admin: 03/19/18 21:03 Dose: 20 mg Ferric Sodium Gluconate Complex 125 mg/ Sodium Chloride 110 mls @ 100 mls/hr IVPB DAILY VLAD Stop: 03/28/18 10:01 Ketorolac Tromethamine (Toradol) 30 mg IVP Q6 PRN PRN Reason: Pain, moderate (4-7) Last Admin: 03/20/18 07:49 Dose: 30 mg Ondansetron HCl (Zofran Inj) 4 mg IVP Q6 PRN PRN Reason: Nausea/Vomiting Oxycodone/Acetaminophen (Percocet 5/325 Mg Tab) 1 tab PO Q4H PRN PRN Reason: Pain, moderate (4-7) Stop: 03/22/18 12:01 Last Admin: 03/20/18 05:29 Dose: 1 tab - Labs Labs: 03/20/18 00:15 03/19/18 07:07 PT 16.0 SECONDS (9.7-12.2) H 03/17/18 11:07 INR 1.5 03/17/18 11:07 APTT 28 SECONDS (21-34) 03/17/18 11:07 - Constitutional Appears: Well, No Acute Distress - Head Exam Head Exam: ATRAUMATIC, NORMOCEPHALIC - Eye Exam Eye Exam: Normal appearance - ENT Exam ENT Exam: Mucous Membranes Moist - Respiratory Exam Respiratory Exam: NORMAL BREATHING PATTERN - Cardiovascular Exam Cardiovascular Exam: RRR - GI/Abdominal Exam GI & Abdominal Exam: Soft, Tenderness (around midline incision, with marielena in place, C/D/I ). absent: Distended, Guarding, Rebound - Extremities Exam Extremities Exam: absent: Tenderness - Neurological Exam Neurological Exam: Alert, Awake, Oriented x3 - Skin Skin Exam: Dry, Warm Assessment and Plan - Assessment and Plan (Free Text) Assessment: 42M s/p Ex-Lap with R hemicolectomy; POD#4 Plan: - tolerating regular diet and having BMs - ok to DC from surgical standpoint - holland drain to remain in place due the high output, will be removed in the of fice when pt follows up with Dr. Mai - no heavy lifting > 15 lbs for 6-8 weeks - d/w Dr. Pau Boogie
[2018-03-20 08:51] LABS: ALB/GLOB RATIO 1.1 (1.0-2.1); ALBUMIN 2.9 g/dL (3.5-5.0); ALT/SGPT 22 U/L (21-72); AST/SGOT 19 U/L (17-59); BLOOD UREA NITROGEN 12 mg/dL (9-20); CALCIUM 8.5 mg/dl (8.6-10.4); GFR NON-AFRICAN AMERICAN > 60
--- NOTE | 2018-03-20 09:19 | CP.PCM.PN ---
Subjective - Date & Time of Evaluation Date of Evaluation: 03/20/18 Time of Evaluation: 09:00 - Subjective Subjective: Patient was seen and examined by me. I was away on Wednesday and Wednesday and returned today to see patient. He looks better than when I last saw him . He is up and walking in hallway with assistance He does have pain at rest however he reports it is tolerable with the pain medication he is on Has a MIRIAN drain Hgb is 9.0. He had 2 units of PRBC in OR and then one more on 03/18 He reports he is having several BMs since surgery He is tolerating his diet, he eats slowly. We are pending on further pathology reports Objective - Vital Signs/Intake and Output Vital Signs (last 24 hours): Temp Pulse Resp BP Pulse Ox 98.3 F 90 20 135/88 96 03/20/18 09:00 03/20/18 09:00 03/20/18 09:00 03/20/18 09:00 03/20/18 09:00 Intake and Output: 03/20/18 03/20/18 06:59 18:59 Output Total Balance - Medications Medications: Current Medications Famotidine (Pepcid) 20 mg IVP Q12 VLAD Last Admin: 03/19/18 21:03 Dose: 20 mg Ferric Sodium Gluconate Complex 125 mg/ Sodium Chloride 110 mls @ 100 mls/hr IVPB DAILY VLAD Stop: 03/28/18 10:01 Ketorolac Tromethamine (Toradol) 30 mg IVP Q6 PRN PRN Reason: Pain, moderate (4-7) Last Admin: 03/20/18 07:49 Dose: 30 mg Ondansetron HCl (Zofran Inj) 4 mg IVP Q6 PRN PRN Reason: Nausea/Vomiting Oxycodone/Acetaminophen (Percocet 5/325 Mg Tab) 1 tab PO Q4H PRN PRN Reason: Pain, moderate (4-7) Stop: 03/22/18 12:01 Last Admin: 03/20/18 05:29 Dose: 1 tab - Labs Labs: 03/20/18 08:27 03/20/18 08:27 PT 16.0 SECONDS (9.7-12.2) H 03/17/18 11:07 INR 1.5 03/17/18 11:07 APTT 28 SECONDS (21-34) 03/17/18 11:07 - Constitutional Appears: No Acute Distress - Head Exam Head Exam: NORMAL INSPECTION, NORMOCEPHALIC - Eye Exam Eye Exam: EOMI, Normal appearance - ENT Exam ENT Exam: Mucous Membranes Moist - Respiratory Exam Respiratory Exam: Clear to Ausculation Bilateral, NORMAL BREATHING PATTERN - Cardiovascular Exam Cardiovascular Exam: REGULAR RHYTHM - GI/Abdominal Exam GI & Abdominal Exam: Soft, Tenderness, Normal Bowel Sounds. absent: Distended, Firm, Guarding, Rigid Additional comments: MIRIAN drain present Midline marielena appear clean, dry, intact - Neurological Exam Neurological Exam: Alert, Awake, Oriented x3 Neuro motor strength exam: Left Upper Extremity: 5, Right Upper Extremity: 5, Left Lower Extremity: 5, Right Lower Extremity: 5 Additional comments: Patient is walking around in the hallway slolwy with family member - Psychiatric Exam Psychiatric exam: Normal Affect, Normal Mood - Skin Skin Exam: Normal Color, Warm Assessment and Plan - Assessment and Plan (Free Text) Assessment: SBO secondary to right colonic mass now POD #4 03/20: Patient is tolerating diet slowly, he is reporting having BMs. We are bhvaana vaughn on pathology reports. Explained to the patient he may or may not need mediport. He will also at some point have to follow up with [facility] - CT abd: small bowel thickening, dilated fluid-filled small bowel loops concerning for obstruction with transition pt on the L. abnormal cecum and terminal ileum, 3 hepatic hypodense masses, bulky retroperitoneal/mesenteric marisol nopathy, and dilated appendix Zofran 4mg IV q6h PRN GI consulted, Dr. Black/Cherie, help appreciated Most likely malignancy with metastatic lesions on the liver. Requiring surgical ex-lap. Surgery Consulted, Dr. Mai Patient went to OR 03/16 for ex lap with R hemicolectomy. Operative findings in clude phlegmonous mass in the cecum causing obstruction- post-op diagnosis of right colon mass. Some lymph nodes were removed, but not all lymph nodes were able to be removed safely. Colonic/Hepatic Lesions - CT abd: small bowel thickening, dilated fluid-filled small bowel loops concerning for obstruction with transition pt on the L. abnormal cecum and terminal ileum, 3 hepatic hypodense masses, bulky retroperitoneal/mesenteric adenopathy, and dilated appendix - CA19-9, CEA, PSA, AFP negaive, GGT WNL - FOBT negative 03/15 - Heme/onc consulted: Dr. Fabian - Dr. Conway consulted for second opinion, help greatly appreciated - Head CT w/ IV contrast 03/16/2018- Normal contrast enhanced CT of the head - Chest CT with IV contrast 03/16/2018 - Right lower lobe subsegmental atelectasis. No nodule, mass, consolidation, or evidence of enlarged lymphadenopathy. Malpositioned enteric tube with tip terminating in the mid esophagus. -See GI and surgery recs above Anemia, Chronic Disease and Status Post surgery 03/20: The patient had two units in OR and one unit on 03/18. Currently Hgb is 9.0. is getting IV Ferriclit PPX: GI: not indicated at this time DVT: SCDs
[2018-03-20] MEDS: Ferric Sodium Gluconat Complex 125 MG in Sodium Chloride 0.9% 100 ML IVPB SCH (09:39)
[2018-03-20] MEDS ORDERED: Ferric Sodium Gluconat Complex 62.5 mg/5 ml Vial IVPB SCH (10:00)
[2018-03-20 10:59] LABS: EOS # 0.6 K/uL (0.0-0.7); LYMPH # 0.9 K/uL (1.0-4.3); MONO # 0.5 K/uL (0.0-0.8); NEUT # 5.1 K/uL (1.8-7.0)
--- NOTE | 2018-03-20 20:39 | CP.PCM.CON ---
History of Present Illness - History of Present Illness History of Present Illness: 42 year old male with no past medical history admitted with bowel obstruction secondary to a cecal mass s/p exploratory laparotomy and right hemicolectomy, found to have liver lesions and abdominal lymphadenopathy concerning for malign ashli. Pt is feeling better post surgery, path is pending. Past medical history: None Past surgical history: Denies Family history: Denies hematologic and oncologic problems Social history: Denies tobacco, alcohol, and illicit drug use Allergies: NKA Review of systems: All remaining review of systems including HEENT, cardiovacular, respiratory, gastrointestinal, genitourinary, musculoskeletal, dermatologic, neurologic, and psychiatric are negative unless mentioned in the HPI. Past Patient History - Past Medical History & Family History Past Medical History?: No Past Family History: Reviewed and not pertinent - Past Social History Smoking Status: Former Smoker Alcohol: Other Drugs: Denies - CARDIAC Hx Cardiac Disorders: No - PULMONARY Hx Respiratory Disorders: No - NEUROLOGICAL Hx Neurological Disorder: No - HEENT Hx HEENT Problems: No - RENAL Hx Chronic Kidney Disease: No - ENDOCRINE/METABOLIC Hx Endocrine Disorders: No - HEMATOLOGICAL/ONCOLOGICAL Hx Blood Disorders: No - INTEGUMENTARY Hx Dermatological Problems: No - MUSCULOSKELETAL/RHEUMATOLOGICAL Hx Musculoskeletal Disorders: No Hx Falls: No - GASTROINTESTINAL Hx Gastrointestinal Disorders: No - GENITOURINARY/GYNECOLOGICAL Hx Genitourinary Disorders: No - PSYCHIATRIC Hx Substance Use: No - SURGICAL HISTORY Hx Surgeries: No - ANESTHESIA Hx Anesthesia: Yes (dental procedure) Hx Anesthesia Reactions: No Meds Allergies/Adverse Reactions: Allergies Allergy/AdvReac Type Severity Reaction Status Date / Time No Known Allergies Allergy Verified 03/15/18 09:54 - Medications Medications: Current Medications Famotidine (Pepcid) 20 mg IVP Q12 [facility] Last Admin: 03/20/18 09:39 Dose: 20 mg Ferric Sodium Gluconate Complex 125 mg/ Sodium Chloride 110 mls @ 100 mls/hr IVPB DAILY [facility] Stop: 03/28/18 10:01 Last Admin: 03/20/18 09:39 Dose: 100 mls/hr Ondansetron HCl (Zofran Inj) 4 mg IVP Q6 PRN PRN Reason: Nausea/Vomiting Oxycodone/Acetaminophen (Percocet 5/325 Mg Tab) 1 tab PO Q4H PRN PRN Reason: Pain, moderate (4-7) Stop: 03/22/18 12:01 Last Admin: 03/20/18 17:21 Dose: 1 tab Physical Exam - Head Exam Head Exam: ATRAUMATIC - Eye Exam Eye Exam: Normal appearance - ENT Exam ENT Exam: Mucous Membranes Dry - Respiratory Exam Respiratory Exam: NORMAL BREATHING PATTERN - Cardiovascular Exam Cardiovascular Exam: +S1, +S2 - GI/Abdominal Exam GI & Abdominal Exam: Normal Bowel Sounds - Extremities Exam Extremities exam: Positive for: normal inspection - Neurological Exam Neurological exam: Oriented x3 - Psychiatric Exam Psychiatric exam: Normal Affect, Normal Mood - Skin Skin Exam: Warm Results - Vital Signs Recent Vital Signs: Last Vital Signs Temp 98.7 F 03/20/18 15:00 Pulse 87 03/20/18 15:00 Resp 20 03/20/18 15:00 BP 128/80 03/20/18 15:00 Pulse Ox 97 03/20/18 15:00 - Labs Result Diagrams: 03/20/18 08:27 03/20/18 08:27 Labs: Laboratory Results - last 24 hr 03/20/18 03/20/18 03/20/18 00:15 08:27 08:27 WBC 7.2 RBC 4.19 L Hgb 8.6 L 9.0 L Hct 27.1 L 28.0 L MCV 66.7 L MCH 21.5 L MCHC 32.2 L RDW 29.1 H Plt Count 367 MPV 8.8 Neut % (Auto) 71.0 Lymph % (Auto) 13.0 L [place] % (Auto) 7.0 Eos % (Auto) 8.0 H Baso % (Auto) 1.0 Neut # (Auto) 5.1 Lymph # (Auto) 0.9 L [place] # (Auto) 0.5 Eos # (Auto) 0.6 Baso # (Auto) 0.0 Sodium 135 Potassium 4.0 Chloride 102 Carbon Dioxide 24 Anion Gap 14 BUN 12 Creatinine 0.6 L Est GFR ( Amer) > 60 Est GFR (Non-Af Amer) > 60 Random Glucose 94 Calcium 8.5 L Total Bilirubin 0.7 AST 19 ALT 22 Alkaline Phosphatase 42 Total Protein 5.7 L Albumin 2.9 L Globulin 2.8 Albumin/Globulin Ratio 1.1 Assessment & Plan (1) Colonic mass Assessment and Plan: concerning for malignancy liver lesions and abdominal lymphadenopathy s/p hemicolectomy, f/u path Status: Acute (2) Anemia Assessment and Plan: likely iron deficiency will start on IV iron Thank you for this interesting consult. Status: Acute
[2018-03-21] MEDS: Oxycodone/Acetaminophen 5/325 mg Tab PO PRN ×4 (02:17→19:02)
[2018-03-21 07:31] LABS: HEMOGLOBIN 9.4 g/dL (12.0-18.0); MEAN CELL VOLUME 66.7 fL (80.0-94.0); MEAN CORPUSCULAR HEMOGLOBIN 22.2 pg (27.0-31.0); MEAN CORPUSCULAR HGB CONC 33.3 g/dL (33.0-37.0); MEAN PLATELET VOLUME 8.6 fL (7.2-11.7); RBC 4.21 Mil/uL (4.40-5.90); RED CELL DISTRIBUTION WIDTH 29.1 % (11.5-14.5); WHITE BLOOD COUNT 6.5 K/uL (4.8-10.8)
[2018-03-21 08:21] LABS: BLOOD UREA NITROGEN 10 mg/dL (9-20); CALCIUM 8.2 mg/dl (8.6-10.4); GFR NON-AFRICAN AMERICAN > 60
[2018-03-21] MEDS: Ferric Sodium Gluconat Complex 125 MG in Sodium Chloride 0.9% 100 ML IVPB SCH (09:28)
[2018-03-21 09:44] LABS: BASO # 0.1 K/uL (0.0-0.2); EOS # 0.6 K/uL (0.0-0.7); LYMPH # 0.9 K/uL (1.0-4.3); MONO # 0.3 K/uL (0.0-0.8); NEUT # 4.6 K/uL (1.8-7.0)
--- NOTE | 2018-03-21 14:19 | CP.PCM.PN ---
<Toney Raman - Last Filed: 03/21/18 14:16> Subjective - Date & Time of Evaluation Date of Evaluation: 03/21/18 Time of Evaluation: 14:18 - Subjective Subjective: PGY-[address] Whittington Patient seen and examined at bedside. Patient has no acute complaints. He has been having bowel movements and passing gas. Denies any blood in the stool. Patient states that he has been walking around on his own and with PT. He has been walking about 3 laps around the hospital per day. Patient is still eating mostly liquids, but states he is going to try eating more solid food. His abdominal pain has been improving and pain is tolerable with Percocet Q4 prn. Patient is awaiting pathology reports. Patient denies chest pain, shortness of breath, nausea, vomiting dizziness, paresthesias, dysuria. Objective - Vital Signs/Intake and Output Vital Signs (last 24 hours): Temp Pulse Resp BP Pulse Ox 98.6 F 92 H 20 135/82 96 03/21/18 07:00 03/21/18 12:23 03/21/18 07:00 03/21/18 12:23 03/21/18 07:00 Intake and Output: 03/21/18 03/21/18 06:59 18:59 Intake Total 450 Output Total 800 Balance -350 - Medications Medications: Current Medications Famotidine (Pepcid) 20 mg IVP Q12 [facility] Last Admin: 03/21/18 09:28 Dose: 20 mg Ferric Sodium Gluconate Complex 125 mg/ Sodium Chloride 110 mls @ 100 mls/hr IVPB DAILY [facility] Stop: 03/28/18 10:01 Last Admin: 03/21/18 09:28 Dose: 100 mls/hr Ondansetron HCl (Zofran Inj) 4 mg IVP Q6 PRN PRN Reason: Nausea/Vomiting Oxycodone/Acetaminophen (Percocet 5/325 Mg Tab) 1 tab PO Q4H PRN PRN Reason: Pain, moderate (4-7) Stop: 03/22/18 12:01 Last Admin: 03/21/18 12:24 Dose: 1 tab - Labs Labs: 03/21/18 07:23 03/21/18 07:23 PT 16.0 SECONDS (9.7-12.2) H 03/17/18 11:07 INR 1.5 03/17/18 11:07 APTT 28 SECONDS (21-34) 03/17/18 11:07 - Constitutional Appears: Well, Non-toxic, No Acute Distress - Head Exam Head Exam: ATRAUMATIC, NORMAL INSPECTION - Eye Exam Eye Exam: EOMI, Normal appearance - ENT Exam ENT Exam: Mucous Membranes Moist - Respiratory Exam Respiratory Exam: Clear to Ausculation Bilateral, NORMAL BREATHING PATTERN. absent: Rales, Rhonchi, Wheezes - Cardiovascular Exam Cardiovascular Exam: RRR, +S1, +S2. absent: Murmur - GI/Abdominal Exam Additional comments: Well-healing vertical abdominal incision with marielena in place. MIRIAN drain in place draining light serosanguineous fluid. RLQ tenderness to palpation, slightly improved from previous exams. - Extremities Exam Extremities Exam: Normal Inspection. absent: Pedal Edema, Tenderness - Neurological Exam Neurological Exam: Alert, Awake, Oriented x3 - Psychiatric Exam Psychiatric exam: Normal Affect, Normal Mood - Skin Skin Exam: Dry, Intact, Normal Color, Warm Assessment and Plan - Assessment and Plan (Free Text) Assessment: SBO - CT abd: small bowel thickening, dilated fluid-filled small bowel loops concerning for obstruction with transition pt on the L. abnormal cecum and terminal ileum, 3 hepatic hypodense masses, bulky retroperitoneal/mesenteric adenopathy, and dilated appendix - afebrile - Patient now having bowel movements - Leukocytosis resolved - Advanced to regular diet, patient has been eating mostly liquids but will self-advance as tolerated - zofran 4mg IV q6h PRN - GI consulted, Dr. 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 Requiring surgical ex-lap. -Surgery Consulted, Dr. Mai --Patient went to OR 03/16 for ex lap with R hemicolectomy. Operative findings include phlegmonous mass in the cecum causing obstruction- post-op diagnosis of right colon mass. Some lymph nodes were removed, but not all lymph nodes were able to be removed safely. -Pain control: --Percocet 5/25mg PO Q4 prn Colonic/Hepatic Lesions - CT abd: small bowel thickening, dilated fluid-filled small bowel loops concerning for obstruction with transition pt on the L. abnormal cecum and terminal ileum, 3 hepatic hypodense masses, bulky retroperitoneal/mesenteric adenopathy, and dilated appendix - CA19-9, CEA, PSA, AFP negaive, GGT WNL - FOBT negative 03/15 - Heme/onc consulted: Dr. Fabian - Dr. Conway consulted for second opinion, help greatly appreciated - Head CT w/ IV contrast 03/16/2018- Normal contrast enhanced CT of the head - Chest CT with IV contrast 03/16/2018 - Right lower lobe subsegmental atelectasis. No nodule, mass, consolidation, or evidence of enlarged lymphadenopathy. Malpositioned enteric tube with tip terminating in the mid esophagus. -See GI and surgery recs above Microcytic Anemia - S/p two units in OR and one unit on 03/18 - MCV low - likely secondary to malignancy and/or surgery - Fe studies --Iron deficiency - Fe 19. Currently HgB 9.4, patient receiving IV Ferrlecit 125 mg daily. --TIBC WNL --B12, Folate WNL PPX: GI: not indicated at this time DVT: SCDs liquid diet discussed with Dr. Pk Raman, PGY-1 <Ced Whittington - Last Filed: 03/21/18 20:18> Objective - Vital Signs/Intake and Output Vital Signs (last 24 hours): Temp Pulse Resp BP Pulse Ox 98.8 F 78 18 131/79 97 03/21/18 15:42 03/21/18 15:42 03/21/18 15:42 03/21/18 15:42 03/21/18 15:42 Intake and Output: 03/21/18 03/22/18 18:59 06:59 Intake Total 400 Output Total 270 Balance 130 - Medications Medications: Current Medications Famotidine (Pepcid) 20 mg IVP Q12 [facility] Last Admin: 03/21/18 09:28 Dose: 20 mg Ferric Sodium Gluconate Complex 125 mg/ Sodium Chloride 110 mls @ 100 mls/hr IVPB DAILY [facility] Stop: 03/28/18 10:01 Last Admin: 03/21/18 09:28 Dose: 100 mls/hr Ondansetron HCl (Zofran Inj) 4 mg IVP Q6 PRN PRN Reason: Nausea/Vomiting Oxycodone/Acetaminophen (Percocet 5/325 Mg Tab) 1 tab PO Q4H PRN PRN Reason: Pain, moderate (4-7) Stop: 03/22/18 12:01 Last Admin: 03/21/18 19:02 Dose: 1 tab - Labs Labs: 03/21/18 07:23 03/21/18 07:23 PT 16.0 SECONDS (9.7-12.2) H 03/17/18 11:07 INR 1.5 03/17/18 11:07 APTT 28 SECONDS (21-34) 03/17/18 11:07 Attending/Attestation - Attestation I have personally seen and examined this patient.: Yes I have fully participated in the care of the patient.: Yes I have reviewed all pertinent clinical information, including history, physical exam and plan: Yes Notes (Text): Seen and examined tolerating diet ambulating biopsy report pending follow biopsy report I agree with the resident's documentation
--- NOTE | 2018-03-21 15:15 | CP.PCM.PN ---
Subjective - Date & Time of Evaluation Date of Evaluation: 03/21/18 Time of Evaluation: 07:00 - Subjective Subjective: GENERAL SURGERY PROGRESS NOTE FOR DR. BERNAL Patient seen and examined at bedside. He is tolerating regular diet, ambulating in the halls, using the IS. He is passing flatus and having BMs. Objective - Vital Signs/Intake and Output Vital Signs (last 24 hours): Temp Pulse Resp BP Pulse Ox 98.6 F 92 H 20 135/82 96 03/21/18 07:00 03/21/18 12:23 03/21/18 07:00 03/21/18 12:23 03/21/18 07:00 Intake and Output: 03/21/18 03/21/18 06:59 18:59 Intake Total 450 400 Output Total 800 180 Balance -350 220 - Medications Medications: Current Medications Famotidine (Pepcid) 20 mg IVP Q12 [facility] Last Admin: 03/21/18 09:28 Dose: 20 mg Ferric Sodium Gluconate Complex 125 mg/ Sodium Chloride 110 mls @ 100 mls/hr IVPB DAILY [facility] Stop: 03/28/18 10:01 Last Admin: 03/21/18 09:28 Dose: 100 mls/hr Ondansetron HCl (Zofran Inj) 4 mg IVP Q6 PRN PRN Reason: Nausea/Vomiting Oxycodone/Acetaminophen (Percocet 5/325 Mg Tab) 1 tab PO Q4H PRN PRN Reason: Pain, moderate (4-7) Stop: 03/22/18 12:01 Last Admin: 03/21/18 12:24 Dose: 1 tab - Labs Labs: 03/21/18 07:23 03/21/18 07:23 PT 16.0 SECONDS (9.7-12.2) H 03/17/18 11:07 INR 1.5 03/17/18 11:07 APTT 28 SECONDS (21-34) 03/17/18 11:07 - Constitutional Appears: Non-toxic, No Acute Distress - Head Exam Head Exam: ATRAUMATIC, NORMAL INSPECTION - Eye Exam Eye Exam: EOMI - Respiratory Exam Respiratory Exam: NORMAL BREATHING PATTERN. absent: Respiratory Distress - Cardiovascular Exam Cardiovascular Exam: +S1, +S2 - GI/Abdominal Exam GI & Abdominal Exam: Soft. absent: Distended, Firm, Guarding, Rigid, Tenderness, Rebound Additional comments: [place] in place Enio drain in place with 1570cc serosanguinous output over past 24 hours - Neurological Exam Neurological Exam: Alert, Awake, Oriented x3 - Psychiatric Exam Psychiatric exam: Normal Affect, Normal Mood - Skin Skin Exam: Dry, Normal Color, Warm Assessment and Plan - Assessment and Plan (Free Text) Assessment: 42yo M with cecal mass s/p Ex-Lap with R hemicolectomy; POD#5 Plan: - Continues to have high output from Enio - likely ascites - Tolerating regular diet and having BMs - Ok to DC from surgical standpoint - Enio drain to remain in place due the high output, will be removed in the office when pt follows up with Dr. Bernal - No heavy lifting > 15 lbs for 6-8 weeks - [place]ick to be removed 2 weeks post op - Follow up pathology - Discussed plan with Dr. Pau Camacho PGY-4
[2018-03-22 01:49] VITALS: RESP 20
[2018-03-22] MEDS: Oxycodone/Acetaminophen 5/325 mg Tab PO PRN ×4 (04:24→22:32)
[2018-03-22 06:54] LABS: BASO # 0.1 K/uL (0.0-0.2); BASO % 0.7 % (0.0-2.0); EOS # 0.4 K/uL (0.0-0.7); EOS % 5.2 % (0.0-4.0); HEMOGLOBIN 9.2 g/dL (12.0-18.0); LYMPH # 1.4 K/uL (1.0-4.3); MEAN CELL VOLUME 66.8 fL (80.0-94.0); MEAN CORPUSCULAR HEMOGLOBIN 21.2 pg (27.0-31.0); MEAN CORPUSCULAR HGB CONC 31.7 g/dL (33.0-37.0); MEAN PLATELET VOLUME 8.7 fL (7.2-11.7); MONO # 0.8 K/uL (0.0-0.8); MONO % 10.8 % (0.0-10.0); NEUT # 4.5 K/uL (1.8-7.0); NEUT % 63.3 % (50.0-75.0); NRBC % 0.1 % (0.0-2.0); RBC 4.35 Mil/uL (4.40-5.90); RED CELL DISTRIBUTION WIDTH 28.9 % (11.5-14.5); WHITE BLOOD COUNT 7.1 K/uL (4.8-10.8)
--- NOTE | 2018-03-22 07:58 | CP.PCM.PN ---
<Toney Raman - Last Filed: 03/22/18 15:38> Subjective - Date & Time of Evaluation Date of Evaluation: 03/22/18 Time of Evaluation: 07:48 - Subjective Subjective: PGY-[address] Whittington Patient seen and examined at bedside. No acute events overnight per nursing. Patient's last BM was Wednesday. Denies diarrhea or blood in the stool. Patient has begun tolerating solid food in small amounts. He is working on his own and with PT to improve strength. Patient denies chest pain, shortness of breath, nausea, vomiting dizziness, paresthesias, dysuria. Objective - Vital Signs/Intake and Output Vital Signs (last 24 hours): Temp Pulse Resp BP Pulse Ox 98.7 F 90 20 125/81 96 03/22/18 04:30 03/22/18 04:30 03/22/18 04:30 03/22/18 04:30 03/22/18 04:30 Intake and Output: 03/22/18 03/22/18 06:59 18:59 Intake Total 400 Output Total 150 Balance 250 - Medications Medications: Current Medications Famotidine (Pepcid) 20 mg IVP Q12 [facility] Last Admin: 03/21/18 21:20 Dose: 20 mg Ferric Sodium Gluconate Complex 125 mg/ Sodium Chloride 110 mls @ 100 mls/hr IVPB DAILY [facility] Stop: 03/28/18 10:01 Last Admin: 03/21/18 09:28 Dose: 100 mls/hr Ondansetron HCl (Zofran Inj) 4 mg IVP Q6 PRN PRN Reason: Nausea/Vomiting Oxycodone/Acetaminophen (Percocet 5/325 Mg Tab) 1 tab PO Q4H PRN PRN Reason: Pain, moderate (4-7) Stop: 03/22/18 12:01 Last Admin: 03/22/18 04:24 Dose: 1 tab - Labs Labs: 03/22/18 06:31 03/21/18 07:23 PT 16.0 SECONDS (9.7-12.2) H 03/17/18 11:07 INR 1.5 03/17/18 11:07 APTT 28 SECONDS (21-34) 03/17/18 11:07 - Constitutional Appears: Non-toxic, No Acute Distress - Head Exam Head Exam: ATRAUMATIC, NORMAL INSPECTION - Eye Exam Eye Exam: EOMI, Normal appearance - ENT Exam ENT Exam: Mucous Membranes Moist - Respiratory Exam Respiratory Exam: NORMAL BREATHING PATTERN. absent: Rhonchi, Wheezes - Cardiovascular Exam Cardiovascular Exam: REGULAR RHYTHM, RRR, +S1, +S2. absent: Murmur - GI/Abdominal Exam GI & Abdominal Exam: Soft, Normal Bowel Sounds Additional comments: RLQ tenderness to palpation Enio drain continues to drain sero-sanguineous fluid - Extremities Exam Extremities Exam: Normal Capillary Refill, Normal Inspection. absent: Pedal Edema, Tenderness - Neurological Exam Neurological Exam: Alert, Awake, CN II-XII Intact, Oriented x3 - Psychiatric Exam Psychiatric exam: Normal Affect, Normal Mood - Skin Skin Exam: Dry, Intact, Normal Color, Warm Assessment and Plan - Assessment and Plan (Free Text) Assessment: SBO - CT abd: small bowel thickening, dilated fluid-filled small bowel loops concerning for obstruction with transition pt on the L. abnormal cecum and terminal ileum, 3 hepatic hypodense masses, bulky retroperitoneal/mesenteric adenopathy, and dilated appendix - afebrile - Patient now having bowel movements - Leukocytosis resolved - Advanced to regular diet, patient has been eating mostly liquids but will self-advance as tolerated - zofran 4mg IV q6h PRN - GI consulted, Dr. 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 Requiring surgical ex-lap. -Surgery Consulted, Dr. Mai. Help appreciated. --Patient went to OR 03/16 for ex lap with R hemicolectomy. Operative findings include phlegmonous mass in the cecum causing obstruction- post-op diagnosis of right colon mass. Some lymph nodes were removed, but not all lymph nodes were a ble to be removed safely. --Patient has been cleared for discharge from a surgical perspective. Per surgical note, Enio drain, which has been draining high output of what is ML ascites, will remain in place to be removed in the office during outpatient follow up. --No heavy lifting > 15 lbs for 6-8 weeks. [place] to be removed 2 weeks post op -Pain control: --Percocet 5/25mg PO Q4 prn Colonic/Hepatic Lesions - CT abd: small bowel thickening, dilated fluid-filled small bowel loops concerning for obstruction with transition pt on the L. abnormal cecum and terminal ileum, 3 hepatic hypodense masses, bulky retroperitoneal/mesenteric adenopathy, and dilated appendix - CA19-9, CEA, PSA, AFP negaive, GGT WNL - FOBT negative 03/15 - Heme/onc consulted: Dr. Fabian - Dr. Conway consulted for second opinion, help greatly appreciated - Head CT w/ IV contrast 03/16/2018- Normal contrast enhanced CT of the head - Chest CT with IV contrast 03/16/2018 - Right lower lobe subsegmental atelectasis. No nodule, mass, consolidation, or evidence of enlarged lymphadenopathy. Malpositioned enteric tube with tip terminating in the mid esophagus. - See GI and surgery recs above - Pathology: Awaiting official pathology report. 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 CT abd/pelvis revealed what most likely represent metastatic lesions on the liver. OFFICIAL REPORT PENDING. Microcytic Anemia - S/p two units in OR and one unit on 03/18 - MCV low - likely secondary to malignancy and/or surgery - Fe studies --Iron deficiency - Fe 19. Currently HgB 9.4, patient receiving IV Ferrlecit 125 mg daily. --TIBC WNL --B12, Folate WNL PPX: GI: not indicated at this time DVT: SCDs liquid diet discussed with Dr. Pk Raman, PGY-1 <Ced Whittington - Last Filed: 03/23/18 08:50> Objective - Vital Signs/Intake and Output Vital Signs (last 24 hours): Temp Pulse Resp BP Pulse Ox 98.4 F 82 20 137/84 97 03/22/18 08:25 03/22/18 09:00 03/22/18 08:25 03/22/18 08:25 03/22/18 08:25 Intake and Output: 03/22/18 03/22/18 06:59 18:59 Intake Total 400 Output Total 150 55 Balance 250 -55 - Medications Medications: Current Medications Docusate Sodium (Colace) 100 mg PO BID [facility] Last Admin: 03/22/18 13:00 Dose: 100 mg Famotidine (Pepcid) 20 mg IVP Q12 [facility] Last Admin: 03/22/18 10:29 Dose: 20 mg Ferric Sodium Gluconate Complex 125 mg/ Sodium Chloride 110 mls @ 100 mls/hr IVPB DAILY [facility] Stop: 03/28/18 10:01 Last Admin: 03/22/18 10:29 Dose: 100 mls/hr Ondansetron HCl (Zofran Inj) 4 mg IVP Q6 PRN PRN Reason: Nausea/Vomiting Oxycodone/Acetaminophen (Percocet 5/325 Mg Tab) 1 tab PO Q4H PRN PRN Reason: Pain, moderate (4-7) Stop: 03/25/18 16:25 Last Admin: 03/22/18 17:10 Dose: 1 tab - Labs Labs: 03/22/18 06:31 03/21/18 07:23 PT 16.0 SECONDS (9.7-12.2) H 03/17/18 11:07 INR 1.5 03/17/18 11:07 APTT 28 SECONDS (21-34) 03/17/18 11:07 Attending/Attestation - Attestation I have personally seen and examined this patient.: Yes I have fully participated in the care of the patient.: Yes I have reviewed all pertinent clinical information, including history, physical exam and plan: Yes Notes (Text): Patient was seen and examined.Ambulating ok,tolerating diet.has back pain and mild abdominal discomfort Pathologist was called for report. report not ready .likely adenocarcinoma We will ask for port if path confirmed malignancy I agree with the resident's documentation
[2018-03-22] MEDS ORDERED: Ferric Sodium Gluconat Complex 62.5 mg/5 ml Vial ONE (09:30)
[2018-03-22] MEDS: Ferric Sodium Gluconat Complex 125 MG in Sodium Chloride 0.9% 100 ML IVPB SCH (10:29)
--- NOTE | 2018-03-22 11:13 | CP.PCM.PN ---
Subjective - Date & Time of Evaluation Date of Evaluation: 03/22/18 Time of Evaluation: 07:00 - Subjective Subjective: Surgery: Dr. Mai Pt seen and examined. No acute overnight events. States he feels well and abdominal pain is well controlled at this time. Tolerating diet and having BMs but states he feels a little constipated. Denies nausea/vomiting, fevers/chills. Objective - Vital Signs/Intake and Output Vital Signs (last 24 hours): Temp Pulse Resp BP Pulse Ox 98.4 F 82 20 137/84 97 03/22/18 08:25 03/22/18 08:25 03/22/18 08:25 03/22/18 08:25 03/22/18 08:25 Intake and Output: 03/22/18 03/22/18 06:59 18:59 Intake Total 400 Output Total 150 Balance 250 - Medications Medications: Current Medications Docusate Sodium (Colace) 100 mg PO BID [facility] Famotidine (Pepcid) 20 mg IVP Q12 [facility] Last Admin: 03/22/18 10:29 Dose: 20 mg Ferric Sodium Gluconate Complex 125 mg/ Sodium Chloride 110 mls @ 100 mls/hr IVPB DAILY [facility] Stop: 03/28/18 10:01 Last Admin: 03/22/18 10:29 Dose: 100 mls/hr Ondansetron HCl (Zofran Inj) 4 mg IVP Q6 PRN PRN Reason: Nausea/Vomiting Oxycodone/Acetaminophen (Percocet 5/325 Mg Tab) 1 tab PO Q4H PRN PRN Reason: Pain, moderate (4-7) Stop: 03/22/18 12:01 Last Admin: 03/22/18 10:26 Dose: 1 tab - Labs Labs: 03/22/18 06:31 03/21/18 07:23 PT 16.0 SECONDS (9.7-12.2) H 03/17/18 11:07 INR 1.5 03/17/18 11:07 APTT 28 SECONDS (21-34) 03/17/18 11:07 - Constitutional Appears: Well, No Acute Distress - Head Exam Head Exam: ATRAUMATIC, NORMOCEPHALIC - Eye Exam Eye Exam: Normal appearance - ENT Exam ENT Exam: Mucous Membranes Moist - Respiratory Exam Respiratory Exam: NORMAL BREATHING PATTERN - Cardiovascular Exam Cardiovascular Exam: RRR - GI/Abdominal Exam GI & Abdominal Exam: Soft. absent: Distended, Guarding, Tenderness Additional comments: midline incision with marielena, C/D/I. Enio with serosang drainage - Neurological Exam Neurological Exam: Alert, Awake, Oriented x3 - Skin Skin Exam: Dry, Warm Assessment and Plan - Assessment and Plan (Free Text) Assessment: 42M s/p R hemicolectomy for colon CA; POD#6 Plan: - enio output decreased; however still high, cont to monitor - f/u pathology - DC per medicine - d/w Dr. Pau Boogie
[2018-03-23 06:45] LABS: BASO % 0.5 % (0.0-2.0); EOS # 0.3 K/uL (0.0-0.7); EOS % 3.8 % (0.0-4.0); HEMOGLOBIN 10.2 g/dL (12.0-18.0); LYMPH # 1.8 K/uL (1.0-4.3); LYMPH % 22.5 % (20.0-40.0); MEAN CELL VOLUME 67.1 fL (80.0-94.0); MEAN CORPUSCULAR HEMOGLOBIN 21.4 pg (27.0-31.0); MEAN CORPUSCULAR HGB CONC 31.8 g/dL (33.0-37.0); MEAN PLATELET VOLUME 8.5 fL (7.2-11.7); MONO # 0.9 K/uL (0.0-0.8); MONO % 11.3 % (0.0-10.0); NEUT % 61.9 % (50.0-75.0); RBC 4.78 Mil/uL (4.40-5.90); RED CELL DISTRIBUTION WIDTH 29.8 % (11.5-14.5); WHITE BLOOD COUNT 8.1 K/uL (4.8-10.8)
[2018-03-23] MEDS: Oxycodone/Acetaminophen 5/325 mg Tab PO PRN ×4 (06:46→20:20)
[2018-03-23] MEDS: Ferric Sodium Gluconat Complex 125 MG in Sodium Chloride 0.9% 100 ML IVPB SCH (09:48)
--- NOTE | 2018-03-23 12:48 | CP.PCM.PN ---
Subjective - Date & Time of Evaluation Date of Evaluation: 03/23/18 Time of Evaluation: 12:00 - Subjective Subjective: Has some abdominal pain, pathology still pending Objective - Vital Signs/Intake and Output Vital Signs (last 24 hours): Temp Pulse Resp BP Pulse Ox 98.1 F 101 H 20 136/88 98 03/23/18 08:26 03/23/18 11:43 03/23/18 08:26 03/23/18 11:43 03/23/18 08:26 Intake and Output: 03/23/18 03/23/18 06:59 18:59 Intake Total 480 Output Total 140 Balance 340 - Medications Medications: Current Medications Docusate Sodium (Colace) 100 mg PO BID [facility] Last Admin: 03/23/18 09:48 Dose: 100 mg Famotidine (Pepcid) 20 mg PO BID [facility] Ferric Sodium Gluconate Complex 125 mg/ Sodium Chloride 110 mls @ 100 mls/hr IVPB DAILY [facility] Stop: 03/28/18 10:01 Last Admin: 03/23/18 09:48 Dose: 100 mls/hr Ondansetron HCl (Zofran Inj) 4 mg IVP Q6 PRN PRN Reason: Nausea/Vomiting Oxycodone/Acetaminophen (Percocet 5/325 Mg Tab) 1 tab PO Q4H PRN PRN Reason: Pain, moderate (4-7) Stop: 03/25/18 16:25 Last Admin: 03/23/18 11:42 Dose: 1 tab - Labs Labs: 03/23/18 06:25 03/21/18 07:23 PT 16.0 SECONDS (9.7-12.2) H 03/17/18 11:07 INR 1.5 03/17/18 11:07 APTT 28 SECONDS (21-34) 03/17/18 11:07 - Head Exam Head Exam: ATRAUMATIC - Eye Exam Eye Exam: Normal appearance - ENT Exam ENT Exam: Mucous Membranes Dry - Respiratory Exam Respiratory Exam: NORMAL BREATHING PATTERN - Cardiovascular Exam Cardiovascular Exam: +S1, +S2 - GI/Abdominal Exam GI & Abdominal Exam: Normal Bowel Sounds Assessment and Plan (1) Colonic mass Assessment & Plan: obstructing s/p colonic resection suspect colon cancer awaiting pathology imaging concerning for metastasis portcath once pathology returns Status: Acute (2) Anemia Assessment & Plan: iron deficiency on IV iron Status: Acute
--- NOTE | 2018-03-23 16:18 | CP.PCM.PN ---
Subjective - Date & Time of Evaluation Date of Evaluation: 03/23/18 Time of Evaluation: 09:30 - Subjective Subjective: GENERAL SURGERY PROGRESS NOTE FOR DR. BERNAL Patient seen and examined at bedside. He is tolerating regular diet, ambulating in the halls, using the IS. No BM since Wednesday. Reports "pressure" in abdomen but no pain. Objective - Vital Signs/Intake and Output Vital Signs (last 24 hours): Temp Pulse Resp BP Pulse Ox 98.1 F 101 H 20 136/88 98 03/23/18 08:26 03/23/18 11:43 03/23/18 08:26 03/23/18 11:43 03/23/18 08:26 Intake and Output: 03/23/18 03/23/18 06:59 18:59 Intake Total 480 400 Output Total 140 70 Balance 340 330 - Medications Medications: Current Medications Docusate Sodium (Colace) 100 mg PO BID [facility] Last Admin: 03/23/18 09:48 Dose: 100 mg Famotidine (Pepcid) 20 mg PO BID [facility] Ferric Sodium Gluconate Complex 125 mg/ Sodium Chloride 110 mls @ 100 mls/hr IVPB DAILY [facility] Stop: 03/28/18 10:01 Last Admin: 03/23/18 09:48 Dose: 100 mls/hr Ondansetron HCl (Zofran Inj) 4 mg IVP Q6 PRN PRN Reason: Nausea/Vomiting Oxycodone/Acetaminophen (Percocet 5/325 Mg Tab) 1 tab PO Q4H PRN PRN Reason: Pain, moderate (4-7) Stop: 03/25/18 16:25 Last Admin: 03/23/18 16:01 Dose: 1 tab - Labs Labs: 03/23/18 06:25 03/21/18 07:23 PT 16.0 SECONDS (9.7-12.2) H 03/17/18 11:07 INR 1.5 03/17/18 11:07 APTT 28 SECONDS (21-34) 03/17/18 11:07 - Constitutional Appears: Non-toxic, No Acute Distress - Head Exam Head Exam: ATRAUMATIC, NORMAL INSPECTION - Eye Exam Eye Exam: EOMI, Normal appearance - Respiratory Exam Respiratory Exam: NORMAL BREATHING PATTERN. absent: Respiratory Distress - Cardiovascular Exam Cardiovascular Exam: +S1, +S2 - GI/Abdominal Exam GI & Abdominal Exam: Soft, Tenderness (mild tenderness around incision site). 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 Conway [facility] - Discussed plan with Dr. Pau Camacho PGY-4
--- NOTE | 2018-03-23 16:20 | CP.PCM.PN ---
<Toney Raman - Last Filed: 03/23/18 16:16> Subjective - Date & Time of Evaluation Date of Evaluation: 03/23/18 Time of Evaluation: 16:21 - Subjective Subjective: PGY-[address] Whittington Patient seen and examined at bedside. No acute events overnight per nursing. Patient had a bowel movement today, feeling much better. Denies diarrhea or blood in the stool. Patient has begun tolerating solid food in small amounts. He is working on his own and with PT to improve strength. Official pathology report was released today- patient is aware that he has cancer with metastatic lesions. He is eager to be discharged. Discussed possibility of patient having port placed prior to discharged - management per Dr. Conway. Patient denies chest pain, shortness of breath, nausea, vomiting dizziness, paresthesias, d ysuria. Objective - Vital Signs/Intake and Output Vital Signs (last 24 hours): Temp Pulse Resp BP Pulse Ox 98.1 F 101 H 20 136/88 98 03/23/18 08:26 03/23/18 11:43 03/23/18 08:26 03/23/18 11:43 03/23/18 08:26 Intake and Output: 03/23/18 03/23/18 06:59 18:59 Intake Total 480 400 Output Total 140 70 Balance 340 330 - Medications Medications: Current Medications Docusate Sodium (Colace) 100 mg PO BID [facility] Last Admin: 03/23/18 09:48 Dose: 100 mg Famotidine (Pepcid) 20 mg PO BID [facility] Ferric Sodium Gluconate Complex 125 mg/ Sodium Chloride 110 mls @ 100 mls/hr IVPB DAILY [facility] Stop: 03/28/18 10:01 Last Admin: 03/23/18 09:48 Dose: 100 mls/hr Ondansetron HCl (Zofran Inj) 4 mg IVP Q6 PRN PRN Reason: Nausea/Vomiting Oxycodone/Acetaminophen (Percocet 5/325 Mg Tab) 1 tab PO Q4H PRN PRN Reason: Pain, moderate (4-7) Stop: 03/25/18 16:25 Last Admin: 03/23/18 16:01 Dose: 1 tab - Labs Labs: 03/23/18 06:25 03/21/18 07:23 PT 16.0 SECONDS (9.7-12.2) H 11/01/18 11:07 INR 1.5 03/17/18 11:07 APTT 28 SECONDS (21-34) 03/17/18 11:07 - Constitutional Appears: Non-toxic, No Acute Distress - Head Exam Head Exam: ATRAUMATIC, NORMAL INSPECTION, NORMOCEPHALIC - Eye Exam Eye Exam: EOMI, Normal appearance - ENT Exam ENT Exam: Mucous Membranes Moist - Respiratory Exam Respiratory Exam: Clear to Ausculation Bilateral, NORMAL BREATHING PATTERN. absent: Rales, Rhonchi, Wheezes - Cardiovascular Exam Cardiovascular Exam: REGULAR RHYTHM, +S1, +S2 - GI/Abdominal Exam GI & Abdominal Exam: Soft, Tenderness (RLQ tenderness to palpation), Normal Bowel Sounds - Neurological Exam Neurological Exam: Alert, Awake, CN II-XII Intact, Oriented x3 - Psychiatric Exam Psychiatric exam: Normal Affect, Normal Mood - Skin Skin Exam: Dry, Intact, Normal Color, Warm Assessment and Plan - Assessment and Plan (Free Text) Assessment: Colonic/Hepatic Lesions - CT abd: small bowel thickening, dilated fluid-filled small bowel loops concerning for obstruction with transition pt on the L. abnormal cecum and terminal ileum, 3 hepatic hypodense masses, bulky retroperitoneal/mesenteric adenopathy, and dilated appendix - CA19-9, CEA, PSA, AFP negative, GGT WNL - FOBT negative 03/15 - Heme/onc consulted: Dr. Fabian - Dr. Conway consulted for second opinion, help greatly appreciated - --Head CT w/ IV contrast 03/16/2018- Normal contrast enhanced CT of the head - --Chest CT with IV contrast 03/16/2018 - Right lower lobe subsegmental atelectasis. No nodule, mass, consolidation, or evidence of enlarged lymphadenopathy. Malpositioned enteric tube with tip terminating in the mid esophagus. - --Pathology: Histology is consistent with adenocarcinoma, which is diffuse, encompassing the majority of the appendix, IC junction, and with apparent spread throughout the colon with ulcerating lesions. CT abd/pelvis revealed what most likely represent metastatic lesions on the liver. See official report for full details. - --Management per Dr. Conway- plan most likely to place port prior to discharge SBO - S/p R hemicolectomy, patient moving bowels and tolerating a solid diet. Leukocytosis resolved. - CT abd: small bowel thickening, dilated fluid-filled small bowel loops concerning for obstruction with transition pt on the L. abnormal cecum and terminal ileum, 3 hepatic hypodense masses, bulky retroperitoneal/mesenteric adenopathy, and dilated appendix - zofran 4mg IV q6h PRN - GI consulted, Dr. 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 Requiring surgical ex-lap. -Surgery Consulted, Dr. Mai. Help appreciated. --Patient went to OR 03/16 for ex lap with R hemicolectomy. Operative findings include phlegmonous mass in the cecum causing obstruction- post-op diagnosis of right colon mass. Some lymph nodes were removed, but not all lymph nodes were able to be removed safely. --Patient has been cleared for discharge from a surgical perspective. Per surgical note, Enio drain, which has been draining high output of what is ML ascites, will remain in place to be removed in the office during outpatient follow up. --No heavy lifting > 15 lbs for 6-8 weeks. [place] to be removed 2 weeks post op -Pain control: --Percocet 5/25mg PO Q4 prn Microcytic Anemia - 10.2, improving - S/p two units in OR and one unit on 03/18 - MCV low - likely secondary to malignancy and/or surgery - Fe studies --Iron deficiency - Fe 19. Currently HgB 9.4, patient receiving IV Ferrlecit 125 mg daily. --TIBC WNL --B12, Folate WNL PPX: GI: not indicated at this time DVT: SCDs liquid diet <Ced Whittington - Last Filed: 03/23/18 16:51> Objective - Vital Signs/Intake and Output Vital Signs (last 24 hours): Temp Pulse Resp BP Pulse Ox 98.6 F 113 H 20 124/85 96 03/23/18 15:25 03/23/18 15:25 03/23/18 15:25 03/23/18 15:25 03/23/18 15:25 Intake and Output: 03/23/18 03/23/18 06:59 18:59 Intake Total 480 400 Output Total 140 70 Balance 340 330 - Medications Medications: Current Medications Docusate Sodium (Colace) 100 mg PO BID [facility] Last Admin: 03/23/18 09:48 Dose: 100 mg Famotidine (Pepcid) 20 mg PO BID [facility] Ferric Sodium Gluconate Complex 125 mg/ Sodium Chloride 110 mls @ 100 mls/hr IVPB DAILY [facility] Stop: 03/28/18 10:01 Last Admin: 03/23/18 09:48 Dose: 100 mls/hr Ondansetron HCl (Zofran Inj) 4 mg IVP Q6 PRN PRN Reason: Nausea/Vomiting Oxycodone/Acetaminophen (Percocet 5/325 Mg Tab) 1 tab PO Q4H PRN PRN Reason: Pain, moderate (4-7) Stop: 03/25/18 16:25 Last Admin: 03/23/18 16:01 Dose: 1 tab - Labs Labs: 03/23/18 06:25 03/21/18 07:23 PT 16.0 SECONDS (9.7-12.2) H 03/17/18 11:07 INR 1.5 03/17/18 11:07 APTT 28 SECONDS (21-34) 03/17/18 11:07 Attending/Attestation - Attestation I have personally seen and examined this patient.: Yes I have fully participated in the care of the patient.: Yes I have reviewed all pertinent clinical information, including history, physical exam and plan: Yes Notes (Text): Patient is lying on bedwithout discomfort,s/p Bowel movement.abdominal drain in plan tolerating diet. mild abominal pain Official Path report adenocarcinoma with focal neuro endocrine features.moderate to porly differentiated.Lymphovascular invasion present We will follow DR Conway's recommendation. Pathology report discussed with the patient. Patient states that he will be compliance with treatment. Discussed with the resident and I agree with the his notes
[2018-03-24] MEDS: Oxycodone/Acetaminophen 5/325 mg Tab PO PRN ×5 (00:20→22:48)
[2018-03-24] MEDS ORDERED: Pantoprazole 20 mg EC Tab PO ONE (08:15)
[2018-03-24 08:17] LABS: HEMOGLOBIN 11.7 g/dL (12.0-18.0); MEAN CELL VOLUME 67.7 fL (80.0-94.0); MEAN CORPUSCULAR HEMOGLOBIN 21.9 pg (27.0-31.0); MEAN CORPUSCULAR HGB CONC 32.3 g/dL (33.0-37.0); MEAN PLATELET VOLUME 8.8 fL (7.2-11.7); PLATELET COUNT 488 K/uL (130-400); RBC 5.35 Mil/uL (4.40-5.90); RED CELL DISTRIBUTION WIDTH 31.4 % (11.5-14.5); WHITE BLOOD COUNT 21.2 K/uL (4.8-10.8)
[2018-03-24 08:48] LABS: ALB/GLOB RATIO 1.2 (1.0-2.1); ALBUMIN 3.6 g/dL (3.5-5.0); ALT/SGPT 15 U/L (21-72); AST/SGOT 25 U/L (17-59); BLOOD UREA NITROGEN 9 mg/dL (9-20); CALCIUM 8.7 mg/dl (8.6-10.4); GFR NON-AFRICAN AMERICAN > 60
--- NOTE | 2018-03-24 09:35 | RAD ---
Date of service: 03/24/2018 HISTORY: leukocytosis, S/P abdominal surgery COMPARISON: 03/16/2018 FINDINGS: LUNGS: The prior previously referenced right basilar subsegmental atelectasis now appears slightly increased-. Its current interval more prominent appearance could be due to differences in projection. There is a perceived possible faint right lateral margin almost pleural like over the lateral right hemithorax. Lung markings extend beyond this. This is not therefore suggestive of a tracey pneumothorax. However an accessory fissure with small fluid component within it or developing thin walled cavity with trace fluid dependent in addition to the right lung base concomitant subsegmental atelectasis is a consideration. There is also a vague increased opacity perceived of the mid right lung zone. This also could be attributed to summation of right anterior 1st 2nd rib and right posterior 5th rib but is not appreciated the recent chest x-ray . Prior left basal atelectasis now less Shallow lung volumes. PLEURA: No significant pleural effusion identified, no pneumothorax apparent. CARDIOVASCULAR: No aortic atherosclerotic calcification present. Normal cardiac size. No pulmonary vascular congestion. OSSEOUS STRUCTURES: No significant abnormalities. VISUALIZED UPPER ABDOMEN: Interval gaseous distension mild moderate. Interval increased gas in colon suggested. Partially visualized midline skin stool sutures. Possible drain tubing projecting over the right upper abdomen. Correlate clinically. Prior enteric tube removed from stomach and esophagus. OTHER FINDINGS: None. IMPRESSION: Persistent right basal subsegmental atelectasis. Possible forming thin wall right lung pulmonary parenchymal cavity with small dependent fluid level and superimposed right basal atelectatic changes. Technical artifact is another consideration as are skin folds changes-a similar appearance slightly less conspicuous on the prior study is . No appreciable cavity or gross pneumatocele on the recent 03/16/2018 CT study noted. The etiology and significance of this chest radiographic appearance is indeterminate. Given history provided consider follow-up CT chest to further evaluate
[2018-03-24 10:32] LABS: BANDS 1 % (0-2); LYMPHOCYTE 10 % (20-40); MONOCYTE 4 % (0-10); NEUTROPHIL 85 % (50-75); TOTAL CELLS COUNTED 100
[2018-03-24 10:33] LABS: ANISOCYTOSIS MODERATE; HYPOCHROMIC SLIGHT; MICROCYTOSIS SLIGHT; OVALOCYTES SLIGHT; PLATELET ESTIMATE INCREASED (NORMAL); POLYCHROMIC SLIGHT
[2018-03-24] MEDS: Ferric Sodium Gluconat Complex 125 MG in Sodium Chloride 0.9% 100 ML IVPB SCH (13:11)
[2018-03-24 14:10] LABS: URINE BACTERIA RARE (<OCC)
[2018-03-24 14:11] LABS: URINE BILIRUBIN NEGATIVE (NEGATIVE); URINE BLOOD NEGATIVE (NEGATIVE); URINE CLARITY Hazy (Clear); URINE COLOR Amber (YELLOW); URINE GLUCOSE (UA) NORMAL (Normal); URINE LEUKOCYTE ESTERASE NEG Leu/uL (Negative); URINE PROTEIN 1+ mg/dL (NEGATIVE)
--- NOTE | 2018-03-24 15:40 | CP.PCM.PN ---
Subjective - Date & Time of Evaluation Date of Evaluation: 03/24/18 Time of Evaluation: 15:36 - Subjective Subjective: General Surgery Progress Note for Dr. Mai Pt seen and examined this AM at bedside no acute events overnight. Pt requesting to be discharged. He does not desire to have a portacath placed during this admission. No new complaints at this time. Objective - Vital Signs/Intake and Output Vital Signs (last 24 hours): Temp Pulse Resp BP Pulse Ox 98.9 F 102 H 20 121/79 95 03/24/18 13:44 03/24/18 13:44 03/24/18 13:44 03/24/18 13:44 03/24/18 13:44 Intake and Output: 03/24/18 03/24/18 06:59 18:59 Intake Total 350 Output Total 45 Balance 305 - Medications Medications: Current Medications Docusate Sodium (Colace) 100 mg PO BID [facility] Last Admin: 03/24/18 09:05 Dose: 100 mg Famotidine (Pepcid) 20 mg PO BID [facility] Last Admin: 03/24/18 09:05 Dose: 20 mg Ferric Sodium Gluconate Complex 125 mg/ Sodium Chloride 110 mls @ 100 mls/hr IVPB DAILY [facility] Stop: 03/28/18 10:01 Last Admin: 03/24/18 13:11 Dose: 100 mls/hr Ondansetron HCl (Zofran Inj) 4 mg IVP Q6 PRN PRN Reason: Nausea/Vomiting Oxycodone/Acetaminophen (Percocet 5/325 Mg Tab) 1 tab PO Q4H PRN PRN Reason: Pain, moderate (4-7) Stop: 03/25/18 16:25 Last Admin: 03/24/18 13:21 Dose: 1 tab - Labs Labs: 03/24/18 08:06 03/24/18 08:06 PT 16.0 SECONDS (9.7-12.2) H 03/17/18 11:07 INR 1.5 03/17/18 11:07 APTT 28 SECONDS (21-34) 03/17/18 11:07 - Constitutional Appears: Non-toxic, No Acute Distress - Head Exam Head Exam: ATRAUMATIC, NORMAL INSPECTION - Eye Exam Eye Exam: EOMI, Normal appearance - Respiratory Exam Respiratory Exam: NORMAL BREATHING PATTERN. absent: Respiratory Distress - Cardiovascular Exam Cardiovascular Exam: +S1, +S2 - GI/Abdominal Exam GI & Abdominal Exam: Soft, Tenderness (mild tenderness around incision site). 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 Mai
[2018-03-24 16:59] LABS: EOS % 0.1 % (0.0-4.0); MEAN CORPUSCULAR HEMOGLOBIN 21.3 pg (27.0-31.0)
[2018-03-24 17:24] LABS: LYMPH # 2.1 K/uL (1.0-4.3); PLATELET COUNT 456 K/uL (130-400)
[2018-03-24 17:25] LABS: BASO % 0.2 % (0.0-2.0); LYMPH % 9.9 % (20.0-40.0); MEAN CELL VOLUME 66.8 fL (80.0-94.0); MEAN CORPUSCULAR HGB CONC 31.8 g/dL (33.0-37.0); MEAN PLATELET VOLUME 8.6 fL (7.2-11.7); MONO # 2.3 K/uL (0.0-0.8); MONO % 10.7 % (0.0-10.0); NEUT # 17.2 K/uL (1.8-7.0); NEUT % 79.1 % (50.0-75.0); RBC 5.18 Mil/uL (4.40-5.90); RED CELL DISTRIBUTION WIDTH 31.2 % (11.5-14.5); WHITE BLOOD COUNT 21.7 K/uL (4.8-10.8)
--- NOTE | 2018-03-24 17:25 | CT ---
Date of service: 03/24/2018 PROCEDURE: CT Chest without contrast HISTORY: fever,abnormal chest xray COMPARISON: Portable chest 03/24/2018. Prior chest CT 03/16/2018. TECHNIQUE: Contiguous axial images were obtained through the chest without intravenous contrast enhancement. Sagittal and coronal reconstructions were performed. Radiation dose: Total exam DLP = 314.31 mGy-cm. This CT exam was performed using one or more of the following dose reduction techniques: Automated exposure control, adjustment of the mA and/or kV according to patient size, and/or use of iterative reconstruction technique. FINDINGS: LUNGS: The faint linear markings in the mid to inferior right lung zone laterally in chest radiograph of 02/21/2018 is not identified currently and does not reflect a pneumothorax. This may represent a skin fold although it is unusual in its appearance even for that etiology. Increased atelectasis favored over infiltrates at the bilateral lung bases remaining slightly greater the right than left sides. Concomitant pneumonia is not excluded, particularly at the right side. MEDIASTINUM: The thoracic inlet is unremarkable. Cardiac size is normal as well with normal caliber of the thoracic aorta and main pulmonary artery segment. Trace pericardial fluid or thickening is seen anteriorly. No definite pleural effusion identified bilaterally. No pulmonary vascular congestion appreciated. No significant lymphadenopathy identified. The thoracic aorta is normal in caliber with no calcified atherosclerotic plaque related. PLEURA: No pleural fluid. No pneumothorax. BONES: No fracture. No destructive lesion. UPPER ABDOMEN: Grossly unremarkable. OTHER FINDINGS: None. IMPRESSION: 1. Pneumothorax bilaterally. Skin fold or other artifact is felt to be the cause of the linear density seen in the prior chest radiograph 03/24/2018 earlier today. 2. Limited but increased bilateral basilar dependent atelectasis appreciate the right greater than left sides with underlying pneumonia not completely excluded. 3. Trace anterior pericardial effusion or thickening. No pleural effusion bilaterally. No significant lymphadenopathy appreciated in this noncontrast CT.
--- NOTE | 2018-03-24 18:15 | CP.PCM.PN ---
<Toney Raman - Last Filed: 03/24/18 18:29> Subjective - Date & Time of Evaluation Date of Evaluation: 03/24/18 Time of Evaluation: 18:00 - Subjective Subjective: PGY-[address] Whittington Patient seen and examined at bedside. No acute events overnight per nursing. Patient had a bowel movement yesterday. Denies diarrhea or blood in the stool. Patient has been tolerating solid foods now. He is working on his own and with PT to improve strength. Patient had white count this morning, but denies any new symptoms. Patient denies chest pain, shortness of breath, nausea, vomiting dizziness, paresthesias, dysuria. Objective - Vital Signs/Intake and Output Vital Signs (last 24 hours): Temp Pulse Resp BP Pulse Ox 99.4 F 142 H 20 120/88 96 03/24/18 15:19 03/24/18 15:19 03/24/18 15:19 03/24/18 15:19 03/24/18 15:19 Intake and Output: 03/24/18 03/24/18 06:59 18:59 Intake Total 350 580 Output Total 45 850 Balance 305 -270 - Medications Medications: Current Medications Docusate Sodium (Colace) 100 mg PO BID [facility] Last Admin: 03/24/18 17:48 Dose: 100 mg Famotidine (Pepcid) 20 mg PO BID [facility] Last Admin: 03/24/18 17:48 Dose: 20 mg Ferric Sodium Gluconate Complex 125 mg/ Sodium Chloride 110 mls @ 100 mls/hr IVPB DAILY [facility] Stop: 03/28/18 10:01 Last Admin: 03/24/18 13:11 Dose: 100 mls/hr Ondansetron HCl (Zofran Inj) 4 mg IVP Q6 PRN PRN Reason: Nausea/Vomiting Oxycodone/Acetaminophen (Percocet 5/325 Mg Tab) 1 tab PO Q4H PRN PRN Reason: Pain, moderate (4-7) Stop: 03/25/18 16:25 Last Admin: 03/24/18 17:48 Dose: 1 tab - Labs Labs: 03/24/18 16:50 03/24/18 08:06 PT 16.0 SECONDS (9.7-12.2) H 03/17/18 11:07 INR 1.5 03/17/18 11:07 APTT 28 SECONDS (21-34) 03/17/18 11:07 - Constitutional Appears: Non-toxic, No Acute Distress - Head Exam Head Exam: ATRAUMATIC, NORMAL INSPECTION - Eye Exam Eye Exam: EOMI, Normal appearance - ENT Exam ENT Exam: Mucous Membranes Moist - Respiratory Exam Respiratory Exam: Clear to Ausculation Bilateral, NORMAL BREATHING PATTERN. absent: Rales, Rhonchi, Wheezes - Cardiovascular Exam Cardiovascular Exam: Tachycardia, +S1, +S2, +S4. absent: Murmur - GI/Abdominal Exam GI & Abdominal Exam: Soft, Normal Bowel Sounds. absent: Tenderness - Extremities Exam Extremities Exam: absent: Pedal Edema, Tenderness - Neurological Exam Neurological Exam: Alert, Awake, CN II-XII Intact, Oriented x3 - Psychiatric Exam Psychiatric exam: Normal Affect, Normal Mood - Skin Skin Exam: Dry, Intact, Normal Color, Warm Assessment and Plan - Assessment and Plan (Free Text) Assessment: Colonic/Hepatic Lesions - CT abd: small bowel thickening, dilated fluid-filled small bowel loops concerning for obstruction with transition pt on the L. abnormal cecum and terminal ileum, 3 hepatic hypodense masses, bulky retroperitoneal/mesenteric adenopathy, and dilated appendix - CA19-9, CEA, PSA, AFP negative, GGT WNL - FOBT negative 03/15 - Heme/onc consulted: Dr. Fabian - Dr. Conway consulted for second opinion, help greatly appreciated - --Head CT w/ IV contrast 03/16/2018- Normal contrast enhanced CT of the head - --Chest CT with IV contrast 03/16/2018 - Right lower lobe subsegmental atelectasis. No nodule, mass, consolidation, or evidence of enlarged lymphadenopathy. Malpositioned enteric tube with tip terminating in the mid esophagus. - --Pathology: Histology is consistent with adenocarcinoma, which is diffuse, encompassing the majority of the appendix, IC junction, and with apparent spread throughout the colon with ulcerating lesions. CT abd/pelvis revealed what most likely represent metastatic lesions on the liver. See official report for full details. - --Management per Dr. Conway- Port will be placed as outpatient Leukocytosis: -WBC 21.2 this morning. Repeat 21.7 - CXR 03/24/2018: Persistent R basal subsegmental atelectasis. Possible forming thin wall right lung pulmonary parenchymal cavity with small dependent fluid level and superimposed R basal atelectatic changes. Technical artifact is another consideration as are skin fold changes- a similar appearance slight less conspicuous on the prior study is. No appreciable cavity or gross pmeumatocele on the recent 03/06/2018 CT study noted. The etiology and significance of this chest radiographic appearance is indeterminate. Given history provided consider follow-up CT chest to further evaluate. -CT Chest 03/24/2018: NO Pneumothorax bilaterally. Skin fold or other artifact is felt to be the cause of the linear density seen in the prior chest radiograph 03/24/2018 earlier today. Linear but increased bilateral basilar atelectasis with underlying pneumonia not completely excluded. Trace pericardial effusion or thickening. No pleural effusion b/l. No sifnificant lymphadenopathy appreciated in this noncontrast CT. -Follow up blood cultures, procal SBO - S/p R hemicolectomy, patient moving bowels and tolerating a solid diet. Leukocytosis resolved. - CT abd: small bowel thickening, dilated fluid-filled small bowel loops concerning for obstruction with transition pt on the L. abnormal cecum and terminal ileum, 3 hepatic hypodense masses, bulky retroperitoneal/mesenteric adenopathy, and dilated appendix - zofran 4mg IV q6h PRN - GI consulted, Dr. 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 Requiring surgical ex-lap. -Surgery Consulted, Dr. Mai. Help appreciated. --Patient went to OR 03/16 for ex lap with R hemicolectomy. Operative findings include phlegmonous mass in the cecum causing obstruction- post-op diagnosis of right colon mass. Some lymph nodes were removed, but not all lymph nodes were able to be removed safely. --Patient has been cleared for discharge from a surgical perspective. Per surgical note, Enio drain, which has been draining high output of what is ML ascites, will remain in place to be removed in the office during outpatient follow up. --No heavy lifting > 15 lbs for 6-8 weeks. [place] to be removed 2 weeks post op -Pain control: --Percocet 5/25mg PO Q4 prn Microcytic Anemia - 10.2, improving - S/p two units in OR and one unit on 03/18 - MCV low - likely secondary to malignancy and/or surgery - Fe studies --Iron deficiency - Fe 19. Currently HgB 9.4, patient receiving IV Ferrlecit 125 mg daily. --TIBC WNL --B12, Folate WNL PPX: GI: not indicated at this time DVT: SCDs liquid diet <MilomanuelAgusjose - Last Filed: 03/25/18 16:39> Objective - Vital Signs/Intake and Output Vital Signs (last 24 hours): Temp Pulse Resp BP Pulse Ox 98.8 F 101 H 20 113/84 95 03/25/18 09:18 03/25/18 09:18 03/25/18 09:18 03/25/18 09:18 03/25/18 09:18 Intake and Output: 03/25/18 03/25/18 06:59 18:59 Intake Total 400 Output Total 45 Balance 355 - Medications Medications: Current Medications Docusate Sodium (Colace) 100 mg PO BID [facility] Last Admin: 03/25/18 09:14 Dose: 100 mg Famotidine (Pepcid) 20 mg PO BID [facility] Last Admin: 03/25/18 09:14 Dose: 20 mg Ferric Sodium Gluconate Complex 125 mg/ Sodium Chloride 110 mls @ 100 mls/hr IVPB DAILY [facility] Stop: 03/28/18 10:01 Last Admin: 03/25/18 11:53 Dose: 100 mls/hr Lactated Ringer's (Lactated Ringer's) 1,000 mls @ 125 mls/hr IV .Q8H [facility] Last Admin: 03/25/18 09:09 Dose: 125 mls/hr Piperacillin Sod/Tazobactam Sod (Zosyn 3.375 Gm Iv Premix) 3.375 gm in 50 mls @ 100 mls/hr IVPB Q6H [facility]; Protocol Last Admin: 03/25/18 08:52 Dose: 100 mls/hr Ondansetron HCl (Zofran Inj) 4 mg IVP Q6 PRN PRN Reason: Nausea/Vomiting - Labs Labs: 03/25/18 08:29 03/25/18 08:29 PT 16.0 SECONDS (9.7-12.2) H 03/17/18 11:07 INR 1.5 03/17/18 11:07 APTT 28 SECONDS (21-34) 03/17/18 11:07 Attending/Attestation - Attestation I have personally seen and examined this patient.: Yes I have fully participated in the care of the patient.: Yes I have reviewed all pertinent clinical information, including history, physical exam and plan: Yes Notes (Text): Patient was seen and examined had low grade fever,tachycardia and leukocytosis we will do blood culture chest x ray d/w Dr Conway.pt will have port cath as an out pt patient wants to go home Discharge plan cancelled due to low grade fever,tachycardia and leukocytosis
[2018-03-24 18:36] LABS: ANISOCYTOSIS SLIGHT; BANDS 3 % (0-2); HYPOCHROMIC SLIGHT; LYMPHOCYTE 4 % (20-40); MICROCYTOSIS SLIGHT; MONOCYTE 10 % (0-10); NEUTROPHIL 83 % (50-75); OVALOCYTES SLIGHT; PLATELET ESTIMATE NORMAL (NORMAL); TOTAL CELLS COUNTED 100
[2018-03-24 18:37] LABS: LARGE PLATELETS PRESENT; TARGET CELLS SLIGHT
[2018-03-25] MEDS: Oxycodone/Acetaminophen 5/325 mg Tab PO PRN ×3 (03:21→15:50)
[2018-03-25 08:38] LABS: HEMOGLOBIN 10.8 g/dL (12.0-18.0); MEAN CELL VOLUME 68.7 fL (80.0-94.0); MEAN CORPUSCULAR HEMOGLOBIN 21.8 pg (27.0-31.0); MEAN CORPUSCULAR HGB CONC 31.7 g/dL (33.0-37.0); MEAN PLATELET VOLUME 8.8 fL (7.2-11.7); RBC 4.97 Mil/uL (4.40-5.90); RED CELL DISTRIBUTION WIDTH 31.3 % (11.5-14.5); WHITE BLOOD COUNT 16.7 K/uL (4.8-10.8)
[2018-03-25] MEDS: Piperacill/Tazo 3.375gm in Dex 3.375 GM/50 ML BAG IVPB SCH ×2 (08:52→20:34)
[2018-03-25 08:55] LABS: ALBUMIN 3.4 g/dL (3.5-5.0); ALT/SGPT 17 U/L (21-72); AST/SGOT 25 U/L (17-59); BLOOD UREA NITROGEN 10 mg/dL (9-20); CALCIUM 8.7 mg/dl (8.6-10.4); GFR NON-AFRICAN AMERICAN > 60
[2018-03-25] MEDS: Lactated Ringer's 1,000 ML IV SCH ×2 (09:09→15:35)
[2018-03-25] MEDS ORDERED: Iodixanol 320 MG/ML 100 ML BOTTLE IV ONE (09:49)
--- NOTE | 2018-03-25 10:54 | CT ---
Date of service: 03/25/2018 PROCEDURE: CT Chest with contrast (Pulmonary Angiogram) HISTORY: Rule PE, tachycardia, malignancy, post op COMPARISON: Comparison made with chest radiograph 03/23/2018. TECHNIQUE: Axial computed tomography images were obtained of the chest in the pulmonary arterial phase of enhancement. Coronal and sagittal reformatted images were created and reviewed. Intravenous contrast dose: Radiation dose: Total exam DLP = 462.69 mGy-cm. This CT exam was performed using one or more of the following dose reduction techniques: Automated exposure control, adjustment of the mA and/or kV according to patient size, and/or use of iterative reconstruction technique. FINDINGS: PULMONARY ARTERIES: The visualized pulmonary trunk, right and left main, segmental and subsegmental branches of the pulmonary arteries are well opacified with no filling defects seen to suggest acute central pulmonary embolus. Pulmonary trunk measures approximately 3.3 cm AORTA: No acute findings. No thoracic aortic aneurysm. Ascending thoracic aorta measures approximately 3.6 cm and descending thoracic aorta measures approximately 2.5 cm. No aortic atherosclerotic calcification or mural plaque present. LUNGS: Mild bibasilar atelectasis right greater than left.. There also areas of linear atelectasis and or scarring in the right middle lobe and left medial lower lobe. No definitive of parenchymal masses or nodules seen at this time to suggest pulmonary metastasis. However may follow-up at interval recommended for continued surveillance.. PLEURAL SPACES: Unremarkable. No effusion or pneumothorax. HEART: Heart size is within range of normal. There is a small pericardial effusion. LYMPH NODES: No significant mediastinal or hilar lymphadenopathy.. The trachea is midline. No large central endoluminal lesions. There appears to be tiny hiatal hernia. BONES, CHEST WALL: Atelectasis right greater than left. Minor multilevel degenerative spondylosis of the thoracic spine with a few scattered . Small marginal anterior osteophyte formation and few scattered Schmorl's nodes are present. OTHER FINDINGS: Previously noted on multiple on hepatic metastatic lesions are poorly seen on this exam IMPRESSION: No evidence of acute central pulmonary embolus. Bibasilar atelectasis right greater than left. There also linear atelectatic and or scarring changes seen in the middle lobe region.. No definitive pulmonary masses or obvious nodules to suggest a pulmonary metastasis however consider follow-up PET-CT scan. Multiple on presumed hepatic metastases are poorly seen on this study.
--- NOTE | 2018-03-25 11:22 | CP.PCM.PN ---
Subjective - Date & Time of Evaluation Date of Evaluation: 03/25/18 Time of Evaluation: 06:20 - Subjective Subjective: GENERAL SURGERY PROGRESS NOTE FOR DR. BERNAL Patient seen and examined at bedside. He is tolerating regular diet, ambulating in the halls and to the bathroom, using the IS. Had a BM. Objective - Vital Signs/Intake and Output Vital Signs (last 24 hours): Temp Pulse Resp BP Pulse Ox 98.8 F 101 H 20 113/84 95 03/25/18 09:18 03/25/18 09:18 03/25/18 09:18 03/25/18 09:18 03/25/18 09:18 Intake and Output: 03/25/18 03/25/18 06:59 18:59 Intake Total 400 Output Total 45 Balance 355 - Medications Medications: Current Medications Docusate Sodium (Colace) 100 mg PO BID [facility] Last Admin: 03/25/18 09:14 Dose: 100 mg Famotidine (Pepcid) 20 mg PO BID [facility] Last Admin: 03/25/18 09:14 Dose: 20 mg Ferric Sodium Gluconate Complex 125 mg/ Sodium Chloride 110 mls @ 100 mls/hr IVPB DAILY [facility] Stop: 03/28/18 10:01 Last Admin: 03/24/18 13:11 Dose: 100 mls/hr Lactated Ringer's (Lactated Ringer's) 1,000 mls @ 125 mls/hr IV .Q8H [facility] Last Admin: 03/25/18 09:09 Dose: 125 mls/hr Piperacillin Sod/Tazobactam Sod (Zosyn 3.375 Gm Iv Premix) 3.375 gm in 50 mls @ 100 mls/hr IVPB Q6H [facility]; Protocol Last Admin: 03/25/18 08:52 Dose: 100 mls/hr Ondansetron HCl (Zofran Inj) 4 mg IVP Q6 PRN PRN Reason: Nausea/Vomiting Oxycodone/Acetaminophen (Percocet 5/325 Mg Tab) 1 tab PO Q4H PRN PRN Reason: Pain, moderate (4-7) Stop: 03/25/18 16:25 Last Admin: 03/25/18 08:51 Dose: 1 tab - Labs Labs: 03/25/18 08:29 03/25/18 08:29 PT 16.0 SECONDS (9.7-12.2) H 03/17/18 11:07 INR 1.5 03/17/18 11:07 APTT 28 SECONDS (21-34) 03/17/18 11:07 - Constitutional Appears: Non-toxic, No Acute Distress - Head Exam Head Exam: ATRAUMATIC, NORMAL INSPECTION - Eye Exam Eye Exam: EOMI, Normal appearance - Respiratory Exam Respiratory Exam: NORMAL BREATHING PATTERN. absent: Respiratory Distress - Cardiovascular Exam Cardiovascular Exam: Tachycardia - GI/Abdominal Exam GI & Abdominal Exam: Soft. 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 Conway following - Portacath rescheduled for Wednesday if pt still inpatient - Discussed plan with Dr. Pau Camacho PGY-4
[2018-03-25] MEDS: Ferric Sodium Gluconat Complex 125 MG in Sodium Chloride 0.9% 100 ML IVPB SCH (11:53)
--- NOTE | 2018-03-25 17:01 | CP.PCM.PN ---
<Toney Raman - Last Filed: 03/25/18 17:03> Subjective - Date & Time of Evaluation Date of Evaluation: 03/25/18 Time of Evaluation: 17:11 - Subjective Subjective: PGY-[address] Whittington Patient seen and examined at bedside. No acute events overnight per nursing. Patient having bowel movements. Denies diarrhea or blood in the stool. Patient has been tolerating solid foods now. He is working on his own and with PT to improve strength. White count still elevated, but patient denies any fever, fatigue. Patient denies chest pain, shortness of breath, nausea, vomiting dizziness, paresthesias, dysuria. Objective - Vital Signs/Intake and Output Vital Signs (last 24 hours): Temp Pulse Resp BP Pulse Ox 98.8 F 101 H 20 113/84 95 03/25/18 09:18 03/25/18 09:18 03/25/18 09:18 03/25/18 09:18 03/25/18 09:18 Intake and Output: 03/25/18 03/25/18 06:59 18:59 Intake Total 400 Output Total 45 Balance 355 - Medications Medications: Current Medications Docusate Sodium (Colace) 100 mg PO BID [facility] Last Admin: 03/25/18 09:14 Dose: 100 mg Famotidine (Pepcid) 20 mg PO BID [facility] Last Admin: 03/25/18 09:14 Dose: 20 mg Ferric Sodium Gluconate Complex 125 mg/ Sodium Chloride 110 mls @ 100 mls/hr IVPB DAILY [facility] Stop: 03/28/18 10:01 Last Admin: 03/25/18 11:53 Dose: 100 mls/hr Lactated Ringer's (Lactated Ringer's) 1,000 mls @ 125 mls/hr IV .Q8H [facility] Last Admin: 03/25/18 09:09 Dose: 125 mls/hr Piperacillin Sod/Tazobactam Sod (Zosyn 3.375 Gm Iv Premix) 3.375 gm in 50 mls @ 100 mls/hr IVPB Q6H [facility]; Protocol Last Admin: 03/25/18 08:52 Dose: 100 mls/hr Ondansetron HCl (Zofran Inj) 4 mg IVP Q6 PRN PRN Reason: Nausea/Vomiting - Labs Labs: 03/25/18 08:29 03/25/18 08:29 PT 16.0 SECONDS (9.7-12.2) H 03/17/18 11:07 INR 1.5 03/17/18 11:07 APTT 28 SECONDS (21-34) 03/17/18 11:07 - Constitutional Appears: Non-toxic, No Acute Distress - Head Exam Head Exam: ATRAUMATIC, NORMAL INSPECTION - Eye Exam Eye Exam: EOMI, Normal appearance - ENT Exam ENT Exam: Mucous Membranes Moist - Neck Exam Neck Exam: Full ROM, Normal Inspection. absent: Tenderness - Respiratory Exam Respiratory Exam: Clear to Ausculation Bilateral, NORMAL BREATHING PATTERN. absent: Rales, Rhonchi, Wheezes - Cardiovascular Exam Cardiovascular Exam: RRR, +S1, +S2. absent: Murmur - GI/Abdominal Exam GI & Abdominal Exam: Soft, Tenderness (Improved RLQ tenderness), Normal Bowel Sounds Additional comments: Verticle midline incision with marielena in place. Clean, no erythema or exudates. - Extremities Exam Extremities Exam: Normal Inspection. absent: Pedal Edema - Neurological Exam Neurological Exam: Alert, Awake, CN II-XII Intact, Oriented x3 - Psychiatric Exam Psychiatric exam: Normal Affect, Normal Mood - Skin Skin Exam: Dry, Intact, Normal Color, Warm Assessment and Plan - Assessment and Plan (Free Text) Assessment: Colonic/Hepatic Lesions - CT abd: small bowel thickening, dilated fluid-filled small bowel loops concerning for obstruction with transition pt on the L. abnormal cecum and te rminal ileum, 3 hepatic hypodense masses, bulky retroperitoneal/mesenteric adenopathy, and dilated appendix - CA19-9, CEA, PSA, AFP negative, GGT WNL - FOBT negative 03/15 - Heme/onc consulted: Dr. Fabian - Dr. Conway consulted for second opinion, help greatly appreciated - --Head CT w/ IV contrast 03/16/2018- Normal contrast enhanced CT of the head - --Chest CT with IV contrast 03/16/2018 - Right lower lobe subsegmental atelectasis. No nodule, mass, consolidation, or evidence of enlarged lym phadenopathy. Malpositioned enteric tube with tip terminating in the mid esophagus. - --Pathology: Histology is consistent with adenocarcinoma, which is diffuse, encompassing the majority of the appendix, IC junction, and with apparent spread throughout the colon with ulcerating lesions. CT abd/pelvis revealed what most likely represent metastatic lesions on the liver. See official report for full details. - --Management per Dr. Conway- Port will be placed as outpatient Leukocytosis: -WBC 21.2 this morning. Repeat 21.7 - CXR 03/24/2018: Persistent R basal subsegmental atelectasis. Possible forming thin wall right lung pulmonary parenchymal cavity with small dependent fluid level and superimposed R basal atelectatic changes. Technical artifact is another consideration as are skin fold changes- a similar appearance slight less conspicuous on the prior study is. No appreciable cavity or gross pmeumatocele on the recent 03/06/2018 CT study noted. The etiology and significance of this chest radiographic appearance is indeterminate. Given history provided consider follow-up CT chest to further evaluate. -CT Chest 03/24/2018: NO Pneumothorax bilaterally. Skin fold or other artifact is felt to be the cause of the linear density seen in the prior chest radiograph 03/24/2018 earlier today. Linear but increased bilateral basilar atelectasis with underlying pneumonia not completely excluded. Trace pericardial effusion or thickening. No pleural effusion b/l. No sifnificant lymphadenopathy appreciated in this noncontrast CT. -CT angio chest 03/25/2018: No evidence of central PE. Bibasilar atelectasis R>L. There are also linear atelectatic and or scarring changes seen in the middle lobe region. No definitive pulmonary masses or obvious nodules to suggest a pulmonary metastasis however consider follow up PET-CT scan. -Lower Extremity Dopplers 03/25/2018: Official read pending - Preliminary report negative for DVT. -Follow up blood cultures SBO - S/p R hemicolectomy, patient moving bowels and tolerating a solid diet. Leukocytosis resolved. - CT abd: small bowel thickening, dilated fluid-filled small bowel loops con cerning for obstruction with transition pt on the L. abnormal cecum and terminal ileum, 3 hepatic hypodense masses, bulky retroperitoneal/mesenteric adenopathy, and dilated appendix - zofran 4mg IV q6h PRN - GI consulted, Dr. 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 Requiring surgical ex-lap. -Surgery Consulted, Dr. Mai. Help appreciated. --Patient went to OR 03/16 for ex lap with R hemicolectomy. Operative findings include phlegmonous mass in the cecum causing obstruction- post-op diagnosis of right colon mass. Some lymph nodes were removed, but not all lymph nodes were able to be removed safely. --Patient has been cleared for discharge from a surgical perspective. Per surgical note, Enio drain, which has been draining high output of what is ML ascites, will remain in place to be removed in the office during outpatient follow up. --No heavy lifting > 15 lbs for 6-8 weeks. Crystal to be removed 2 weeks post op -Pain control: --Percocet 5/25mg PO Q4 prn Microcytic Anemia - 10.8, improving - S/p two units in OR and one unit on 03/18 - MCV low - likely secondary to malignancy and/or surgery - Fe studies --Iron deficiency - Fe 19. Currently HgB 9.4, patient receiving IV Ferrlecit 125 mg daily. --TIBC WNL --B12, Folate WNL PPX: GI: not indicated at this time DVT: SCDs liquid diet Assessment and Plan d/w Dr. Pk Raman, PGY-1 <Ced Whittington - Last Filed: 03/25/18 17:52> Objective - Vital Signs/Intake and Output Vital Signs (last 24 hours): Temp Pulse Resp BP Pulse Ox 98.8 F 101 H 20 113/84 95 03/25/18 09:18 03/25/18 09:18 03/25/18 09:18 03/25/18 09:18 03/25/18 09:18 Intake and Output: 03/25/18 03/25/18 06:59 18:59 Intake Total 400 Output Total 45 Balance 355 - Medications Medications: Current Medications Docusate Sodium (Colace) 100 mg PO BID [facility] Last Admin: 03/25/18 09:14 Dose: 100 mg Famotidine (Pepcid) 20 mg PO BID [facility] Last Admin: 03/25/18 09:14 Dose: 20 mg Ferric Sodium Gluconate Complex 125 mg/ Sodium Chloride 110 mls @ 100 mls/hr IVPB DAILY [facility] Stop: 03/28/18 10:01 Last Admin: 03/25/18 11:53 Dose: 100 mls/hr Lactated Ringer's (Lactated Ringer's) 1,000 mls @ 125 mls/hr IV .Q8H [facility] Last Admin: 03/25/18 09:09 Dose: 125 mls/hr Piperacillin Sod/Tazobactam Sod (Zosyn 3.375 Gm Iv Premix) 3.375 gm in 50 mls @ 100 mls/hr IVPB Q6H [facility]; Protocol Last Admin: 03/25/18 08:52 Dose: 100 mls/hr Ondansetron HCl (Zofran Inj) 4 mg IVP Q6 PRN PRN Reason: Nausea/Vomiting - Labs Labs: 03/25/18 08:29 03/25/18 08:29 PT 16.0 SECONDS (9.7-12.2) H 03/17/18 11:07 INR 1.5 03/17/18 11:07 APTT 28 SECONDS (21-34) 03/17/18 11:07 Attending/Attestation - Attestation I have personally seen and examined this patient.: Yes I have fully participated in the care of the patient.: Yes I have reviewed all pertinent clinical information, including history, physical exam and plan: Yes Notes (Text): Seen and examined by me patient has no complain,no abdominal pain No signs of infection,No fever today,less tachycardia,wbc is coming down,on zosyn,drain removed by surgery we will d/c tomorrow if no fever spikes,wbc improving and blood cultures negative d/w and pt I agree with the resident's documentation
[2018-03-25] MEDS ORDERED: Oxycodone/Acetaminophen 5/325 mg Tab PO STA (21:13)
[2018-03-26] MEDS: Piperacill/Tazo 3.375gm in Dex 3.375 GM/50 ML BAG IVPB SCH ×2 (01:35→08:06)
[2018-03-26 04:31] VITALS: O2SAT 96
[2018-03-26] MEDS ORDERED: Oxycodone/Acetaminophen 5/325 mg Tab PO ONE (06:40)
[2018-03-26 08:23] VITALS: BP 121/83; PULSE 93; TEMP 98.4
[2018-03-26 08:27] LABS: HEMOGLOBIN 9.3 g/dL (12.0-18.0); MEAN CELL VOLUME 68.4 fL (80.0-94.0); MEAN CORPUSCULAR HEMOGLOBIN 22.3 pg (27.0-31.0); MEAN CORPUSCULAR HGB CONC 32.6 g/dL (33.0-37.0); RBC 4.17 Mil/uL (4.40-5.90); RED CELL DISTRIBUTION WIDTH 30.8 % (11.5-14.5); WHITE BLOOD COUNT 12.7 K/uL (4.8-10.8)
[2018-03-26 08:49] LABS: ALT/SGPT 22 U/L (21-72); AST/SGOT 21 U/L (17-59); BLOOD UREA NITROGEN 8 mg/dL (9-20); CALCIUM 8.3 mg/dl (8.6-10.4); GFR NON-AFRICAN AMERICAN > 60
--- NOTE | 2018-03-26 09:49 | CP.PCM.PN ---
Subjective - Date & Time of Evaluation Date of Evaluation: 03/26/18 Time of Evaluation: 07:00 - Subjective Subjective: GENERAL SURGERY PROGRESS NOTE FOR DR. BERNAL Patient seen and examined at bedside. He is tolerating regular diet, ambulating in the halls and to the bathroom, using the IS. He is having bowel function, + flatus and BM. Pt anxious to go home today. Pt was scheduled for portacath on Wednesday but pt states that he prefers to go home and get the Portacath placed as an outpatient surgery. Objective - Vital Signs/Intake and Output Vital Signs (last 24 hours): Temp Pulse Resp BP Pulse Ox 98.4 F 93 H 20 121/83 96 03/26/18 07:10 03/26/18 07:10 03/26/18 07:10 03/26/18 07:10 03/26/18 07:10 Intake and Output: 03/26/18 03/26/18 06:59 18:59 Intake Total 1110 Balance 1110 - Medications Medications: Current Medications Docusate Sodium (Colace) 100 mg PO BID [facility] Last Admin: 03/25/18 18:26 Dose: 100 mg Famotidine (Pepcid) 20 mg PO BID [facility] Last Admin: 03/25/18 18:26 Dose: 20 mg Ferric Sodium Gluconate Complex 125 mg/ Sodium Chloride 110 mls @ 100 mls/hr IVPB DAILY [facility] Stop: 03/28/18 10:01 Last Admin: 03/25/18 11:53 Dose: 100 mls/hr Lactated Ringer's (Lactated Ringer's) 1,000 mls @ 125 mls/hr IV .Q8H [facility] Last Admin: 03/25/18 15:35 Dose: Not Given Piperacillin Sod/Tazobactam Sod (Zosyn 3.375 Gm Iv Premix) 3.375 gm in 50 mls @ 100 mls/hr IVPB Q6H [facility]; Protocol Last Admin: 03/26/18 08:06 Dose: 100 mls/hr Ondansetron HCl (Zofran Inj) 4 mg IVP Q6 PRN PRN Reason: Nausea/Vomiting - Labs Labs: 03/26/18 08:17 03/26/18 08:17 PT 16.0 SECONDS (9.7-12.2) H 03/17/18 11:07 INR 1.5 11/01/18 11:07 APTT 28 SECONDS (21-34) 03/17/18 11:07 - Constitutional Appears: Non-toxic, No Acute Distress - Head Exam Head Exam: ATRAUMATIC, NORMAL INSPECTION - Eye Exam Eye Exam: EOMI, Normal appearance - Respiratory Exam Respiratory Exam: NORMAL BREATHING PATTERN. absent: Respiratory Distress - Cardiovascular Exam Cardiovascular Exam: +S1, +S2 - GI/Abdominal Exam GI & Abdominal Exam: Soft, Tenderness (mild tenderness around incision site). 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 Bernal this week in his office for removal of marielena and scheduling of portacath - Avoid heavy lifting for 4 weeks post op - May shower but do not take a bath or swim - Discussed plan with Dr. Pau Camacho PGY-4
--- NOTE | 2018-03-26 10:31 | CP.PCM.DIS ---
Provider - Provider Date of Admission: 03/15/18 12:30 Attending physician: Ced Whittington MD Hospital Course - Lab Results Lab Results: Micro Results 03/25/18 14:49 Abdomen Gram Stain - Final 03/24/18 16:30 Blood-Venous Blood Culture - Preliminary NO GROWTH AFTER 24 HOURS 03/24/18 16:00 Blood-Venous Blood Culture - Preliminary NO GROWTH AFTER 24 HOURS Most Recent Lab Values WBC 12.7 K/uL (4.8-10.8) H 03/26/18 08:17 RBC 4.17 Mil/uL (4.40-5.90) L 03/26/18 08:17 Hgb 9.3 g/dL (12.0-18.0) L 03/26/18 08:17 Hct 28.5 % (35.0-51.0) L 03/26/18 08:17 MCV 68.4 fL (80.0-94.0) L 03/26/18 08:17 MCH 22.3 pg (27.0-31.0) L 03/26/18 08:17 MCHC 32.6 g/dL (33.0-37.0) L 03/26/18 08:17 RDW 30.8 % (11.5-14.5) H 03/26/18 08:17 Plt Count 355 K/uL (130-400) 03/26/18 08:17 MPV 9.0 fL (7.2-11.7) 03/26/18 08:17 Neut % (Auto) 79.1 % (50.0-75.0) H 03/24/18 16:50 Lymph % (Auto) 9.9 % (20.0-40.0) L 03/24/18 16:50 [place] % (Auto) 10.7 % (0.0-10.0) H 03/24/18 16:50 Eos % (Auto) 0.1 % (0.0-4.0) 03/24/18 16:50 Baso % (Auto) 0.2 % (0.0-2.0) 03/24/18 16:50 Neut # (Auto) 17.2 K/uL (1.8-7.0) H 03/24/18 16:50 Lymph # (Auto) 2.1 K/uL (1.0-4.3) 03/24/18 16:50 [place] # (Auto) 2.3 K/uL (0.0-0.8) H 03/24/18 16:50 Eos # (Auto) 0.0 K/uL (0.0-0.7) 03/24/18 16:50 Baso # (Auto) 0.0 K/uL (0.0-0.2) 03/24/18 16:50 Neutrophils % (Manual) 83 % (50-75) H 03/24/18 16:50 Band Neutrophils % 3 % (0-2) H 03/24/18 16:50 Lymphocytes % (Manual) 4 % (20-40) L 03/24/18 16:50 Monocytes % (Manual) 10 % (0-10) 03/24/18 16:50 Eosinophils % (Manual) 3 % (0-4) 03/15/18 10:33 Platelet Estimate Normal (NORMAL) 03/24/18 16:50 Large Platelets Present 03/24/18 16:50 Polychromasia Slight 03/24/18 08:06 Hypochromasia (manual) Slight 03/24/18 16:50 Anisocytosis (manual) Slight 03/24/18 16:50 Microcytosis (manual) Slight 03/24/18 16:50 Target Cells Slight 03/24/18 16:50 Ovalocytes Slight 03/24/18 16:50 PT 16.0 SECONDS (9.7-12.2) H 03/17/18 11:07 INR 1.5 03/17/18 11:07 APTT 28 SECONDS (21-34) 03/17/18 11:07 Puncture Site Rr 03/15/18 16:11 pCO2 39 mm/Hg (35-45) 03/15/18 16:11 pO2 80 mm/Hg (80-100) 03/15/18 16:11 HCO3 25.5 mmol/L (21-28) 03/15/18 16:11 ABG pH 7.42 (7.35-7.45) 03/15/18 16:11 ABG Total CO2 26.5 mmol/L (22-28) 03/15/18 16:11 ABG O2 Saturation 98.8 % (95-98) H 03/15/18 16:11 ABG Base Excess 0.8 mmol/L (-2.0-3.0) 03/15/18 16:11 ABG Hemoglobin 9.0 g/dL (11.7-17.4) L 03/15/18 16:11 ABG Carboxyhemoglobin 2.7 % (0.5-1.5) H 03/15/18 16:11 POC ABG HHb (Measured) 1.2 % (0.0-5.0) 03/15/18 16:11 ABG Methemoglobin 1.0 % (0.0-3.0) 03/15/18 16:11 Scottie Test Po 03/15/18 16:11 A-a O2 Difference 21.0 mm/Hg 03/15/18 16:11 Respiratory Index 0.3 03/15/18 16:11 Hgb O2 Saturation 95.2 % (95.0-98.0) 03/15/18 16:11 FiO2 21.0 % 03/15/18 16:11 Sodium 133 mmol/L (132-148) 03/26/18 08:17 Potassium 4.1 mmol/L (3.6-5.2) 03/26/18 08:17 Chloride 95 mmol/L (98-107) L 03/26/18 08:17 Carbon Dioxide 28 mmol/L (22-30) 03/26/18 08:17 Anion Gap 14 (10-20) 03/26/18 08:17 BUN 8 mg/dL (9-20) L 03/26/18 08:17 Creatinine 0.7 mg/dL (0.8-1.5) L 03/26/18 08:17 Est GFR ( Amer) > 60 03/26/18 08:17 Est GFR (Non-Af Amer) > 60 03/26/18 08:17 POC Glucose (mg/dL) 118 mg/dL (65-110) H 03/24/18 11:40 Random Glucose 101 mg/dL (75-110) 03/26/18 08:17 Calcium 8.3 mg/dl (8.6-10.4) L 03/26/18 08:17 Iron 19 ug/dL (49-181) L 03/15/18 16:49 TIBC 394 ug/dL (250-450) 03/15/18 16:49 % Saturation 5 (20-55) L 03/15/18 16:49 Ferritin 72.1 ng/mL 03/21/18 07:23 Total Bilirubin 0.6 mg/dL (0.2-1.3) 03/26/18 08:17 GGT 20 U/L (8-78) 03/15/18 16:49 AST 21 U/L (17-59) 03/26/18 08:17 ALT 22 U/L (21-72) 03/26/18 08:17 Alkaline Phosphatase 80 U/L (38-126) 03/26/18 08:17 Total Protein 6.1 g/dL (6.3-8.3) L 03/26/18 08:17 Albumin 3.0 g/dL (3.5-5.0) L 03/26/18 08:17 Globulin 3.1 gm/dL (2.2-3.9) 03/26/18 08:17 Albumin/Globulin Ratio 1.0 (1.0-2.1) 03/26/18 08:17 Lipase 115 U/L (23-300) 03/15/18 10:33 Alpha Fetoprotein 2.1 ng/mL (0.0-7.5) 03/15/18 16:49 Carcinoembryonic Ag 1.1 ng/mL (0-3.0) 03/15/18 16:49 CA 19-9 Antigen 2.7 U/mL (0-37) 03/15/18 16:49 Free PSA 0.1 ng/mL 03/15/18 16:49 % Free PSA 50 % (calc) (>25) 03/15/18 16:49 Total PSA 0.2 ng/mL (< or = 4.0) 03/15/18 16:49 Vitamin B12 382 pg/mL (239-931) 03/15/18 16:49 Folate 18.1 ng/mL 03/15/18 16:49 Procalcitonin 0.87 NG/ML (0.19-0.49) H 03/24/18 16:50 Urine Color [place] (YELLOW) 03/24/18 13:56 Urine Clarity Hazy (Clear) 03/24/18 13:56 Urine pH 5.0 (5.0-8.0) 03/24/18 13:56 Ur Specific [place] 1.028 (1.003-1.030) 03/24/18 13:56 Urine Protein 1+ mg/dL (NEGATIVE) H 03/24/18 13:56 Urine Glucose (UA) Normal mg/dL (Normal) 03/24/18 13:56 Urine Ketones 2+ mg/dL (NEGATIVE) H 03/24/18 13:56 Urine Blood Negative (NEGATIVE) 03/24/18 13:56 Urine Nitrate Negative (NEGATIVE) 03/24/18 13:56 Urine Bilirubin Negative (NEGATIVE) 03/24/18 13:56 Urine Urobilinogen 2.0 mg/dL (0.2-1.0) 03/24/18 13:56 Ur Leukocyte Esterase Neg [place]heer/uL (Negative) 03/24/18 13:56 Urine WBC (Auto) 6 /hpf (0-5) H 03/24/18 13:56 Urine RBC (Auto) 2 /hpf (0-3) 03/24/18 13:56 Urine Bacteria Rare (<OCC) 03/24/18 13:56 Stool Occult Blood Negative (NEGATIVE) 03/15/18 21:28 Influenza Typ A,B (EIA) Negative for flu a/b (NEGATIVE) 03/25/18 06:58 Blood Type B POSITIVE 03/16/18 11:32 Blood Type Confirm B POSITIVE 03/16/18 11:32 Antibody Screen Negative 03/16/18 11:32 Discharge Exam - Head Exam Head Exam: ATRAUMATIC, NORMAL INSPECTION Discharge Plan - Discharge Medications Prescriptions: Ciprofloxacin [Cipro] 500 mg PO Q12H #14 tab metroNIDAZOLE [Flagyl] 500 mg PO Q8H #21 tab - Follow Up Plan Condition: STABLE Disposition: HOME/ ROUTINE Additional Instructions: Please establish care with primary medical physician. You may follow up at our [facility] Please follow up Surgery (Dr. Mai) in 10 days form discharge Please follow up with [facility] Techn[facility]/Oncologists (Dr. Conway). Please make appointment following Discharge Please take new medications as instructed. Referrals: [facility] [Outside] Dalton Mai MD [Staff Provider] - Dennys Conway MD [Staff Provider] - Khurram Black MD [Staff Provider] -
--- NOTE | 2018-03-26 16:30 | CP.PCM.DIS ---
<Zacarias Riggs - Last Filed: 03/26/18 16:19> Provider - Provider Date of Admission: 03/15/18 12:30 Attending physician: Ced Whittington MD Consults: General Surgery - Dr. Mai Oncology/Hematology - Dr. Conway GI - Dr. Hummel. Time Spent in preparation of Discharge (in minutes): 45 Hospital Course - Lab Results Lab Results: Micro Results 03/25/18 14:49 Abdomen Gram Stain - Final 03/25/18 14:49 Abdomen Wound Culture - Preliminary NO GROWTH AFTER 24 HOURS 03/24/18 16:30 Blood-Venous Blood Culture - Preliminary NO GROWTH AFTER 24 HOURS 03/24/18 16:00 Blood-Venous Blood Culture - Preliminary NO GROWTH AFTER 24 HOURS Most Recent Lab Values WBC 12.7 K/uL (4.8-10.8) H 03/26/18 08:17 RBC 4.17 Mil/uL (4.40-5.90) L 03/26/18 08:17 Hgb 9.3 g/dL (12.0-18.0) L 03/26/18 08:17 Hct 28.5 % (35.0-51.0) L 03/26/18 08:17 MCV 68.4 fL (80.0-94.0) L 03/26/18 08:17 MCH 22.3 pg (27.0-31.0) L 03/26/18 08:17 MCHC 32.6 g/dL (33.0-37.0) L 03/26/18 08:17 RDW 30.8 % (11.5-14.5) H 03/26/18 08:17 Plt Count 355 K/uL (130-400) 03/26/18 08:17 MPV 9.0 fL (7.2-11.7) 03/26/18 08:17 Neut % (Auto) 79.1 % (50.0-75.0) H 03/24/18 16:50 Lymph % (Auto) 9.9 % (20.0-40.0) L 03/24/18 16:50 Kane % (Auto) 10.7 % (0.0-10.0) H 03/24/18 16:50 Eos % (Auto) 0.1 % (0.0-4.0) 03/24/18 16:50 Baso % (Auto) 0.2 % (0.0-2.0) 03/24/18 16:50 Neut # (Auto) 17.2 K/uL (1.8-7.0) H 03/24/18 16:50 Lymph # (Auto) 2.1 K/uL (1.0-4.3) 03/24/18 16:50 Kane # (Auto) 2.3 K/uL (0.0-0.8) H 03/24/18 16:50 Eos # (Auto) 0.0 K/uL (0.0-0.7) 03/24/18 16:50 Baso # (Auto) 0.0 K/uL (0.0-0.2) 03/24/18 16:50 Neutrophils % (Manual) 83 % (50-75) H 03/24/18 16:50 Band Neutrophils % 3 % (0-2) H 03/24/18 16:50 Lymphocytes % (Manual) 4 % (20-40) L 03/24/18 16:50 Monocytes % (Manual) 10 % (0-10) 03/24/18 16:50 Eosinophils % (Manual) 3 % (0-4) 03/15/18 10:33 Platelet Estimate Normal (NORMAL) 03/24/18 16:50 Large Platelets Present 03/24/18 16:50 Polychromasia Slight 03/24/18 08:06 Hypochromasia (manual) Slight 03/24/18 16:50 Anisocytosis (manual) Slight 03/24/18 16:50 Microcytosis (manual) Slight 03/24/18 16:50 Target Cells Slight 03/24/18 16:50 Ovalocytes Slight 03/24/18 16:50 PT 16.0 SECONDS (9.7-12.2) H 03/17/18 11:07 INR 1.5 03/17/18 11:07 APTT 28 SECONDS (21-34) 03/17/18 11:07 Puncture Site Rr 03/15/18 16:11 pCO2 39 mm/Hg (35-45) 03/15/18 16:11 pO2 80 mm/Hg (80-100) 03/15/18 16:11 HCO3 25.5 mmol/L (21-28) 03/15/18 16:11 ABG pH 7.42 (7.35-7.45) 03/15/18 16:11 ABG Total CO2 26.5 mmol/L (22-28) 03/15/18 16:11 ABG O2 Saturation 98.8 % (95-98) H 03/15/18 16:11 ABG Base Excess 0.8 mmol/L (-2.0-3.0) 03/15/18 16:11 ABG Hemoglobin 9.0 g/dL (11.7-17.4) L 03/15/18 16:11 ABG Carboxyhemoglobin 2.7 % (0.5-1.5) H 03/15/18 16:11 POC ABG HHb (Measured) 1.2 % (0.0-5.0) 03/15/18 16:11 ABG Methemoglobin 1.0 % (0.0-3.0) 03/15/18 16:11 Scottie Test Po 03/15/18 16:11 A-a O2 Difference 21.0 mm/Hg 03/15/18 16:11 Respiratory Index 0.3 03/15/18 16:11 Hgb O2 Saturation 95.2 % (95.0-98.0) 03/15/18 16:11 FiO2 21.0 % 03/15/18 16:11 Sodium 133 mmol/L (132-148) 03/26/18 08:17 Potassium 4.1 mmol/L (3.6-5.2) 03/26/18 08:17 Chloride 95 mmol/L (98-107) L 03/26/18 08:17 Carbon Dioxide 28 mmol/L (22-30) 03/26/18 08:17 Anion Gap 14 (10-20) 03/26/18 08:17 BUN 8 mg/dL (9-20) L 03/26/18 08:17 Creatinine 0.7 mg/dL (0.8-1.5) L 03/26/18 08:17 Est GFR ( Amer) > 60 03/26/18 08:17 Est GFR (Non-Af Amer) > 60 03/26/18 08:17 POC Glucose (mg/dL) 118 mg/dL (65-110) H 03/24/18 11:40 Random Glucose 101 mg/dL (75-110) 03/26/18 08:17 Calcium 8.3 mg/dl (8.6-10.4) L 03/26/18 08:17 Iron 19 ug/dL (49-181) L 03/15/18 16:49 TIBC 394 ug/dL (250-450) 03/15/18 16:49 % Saturation 5 (20-55) L 03/15/18 16:49 Ferritin 72.1 ng/mL 03/21/18 07:23 Total Bilirubin 0.6 mg/dL (0.2-1.3) 03/26/18 08:17 GGT 20 U/L (8-78) 03/15/18 16:49 AST 21 U/L (17-59) 03/26/18 08:17 ALT 22 U/L (21-72) 03/26/18 08:17 Alkaline Phosphatase 80 U/L (38-126) 03/26/18 08:17 Total Protein 6.1 g/dL (6.3-8.3) L 03/26/18 08:17 Albumin 3.0 g/dL (3.5-5.0) L 03/26/18 08:17 Globulin 3.1 gm/dL (2.2-3.9) 03/26/18 08:17 Albumin/Globulin Ratio 1.0 (1.0-2.1) 03/26/18 08:17 Lipase 115 U/L (23-300) 03/15/18 10:33 Alpha Fetoprotein 2.1 ng/mL (0.0-7.5) 03/15/18 16:49 Carcinoembryonic Ag 1.1 ng/mL (0-3.0) 03/15/18 16:49 CA 19-9 Antigen 2.7 U/mL (0-37) 03/15/18 16:49 Free PSA 0.1 ng/mL 03/15/18 16:49 % Free PSA 50 % (calc) (>25) 03/15/18 16:49 Total PSA 0.2 ng/mL (< or = 4.0) 03/15/18 16:49 Vitamin B12 382 pg/mL (239-931) 03/15/18 16:49 Folate 18.1 ng/mL 03/15/18 16:49 Procalcitonin 0.87 NG/ML (0.19-0.49) H 03/24/18 16:50 Urine Color [place] (YELLOW) 03/24/18 13:56 Urine Clarity Hazy (Clear) 03/24/18 13:56 Urine pH 5.0 (5.0-8.0) 03/24/18 13:56 Ur Specific [place] 1.028 (1.003-1.030) 03/24/18 13:56 Urine Protein 1+ mg/dL (NEGATIVE) H 03/24/18 13:56 Urine Glucose (UA) Normal mg/dL (Normal) 03/24/18 13:56 Urine Ketones 2+ mg/dL (NEGATIVE) H 03/24/18 13:56 Urine Blood Negative (NEGATIVE) 03/24/18 13:56 Urine Nitrate Negative (NEGATIVE) 03/24/18 13:56 Urine Bilirubin Negative (NEGATIVE) 03/24/18 13:56 Urine Urobilinogen 2.0 mg/dL (0.2-1.0) 03/24/18 13:56 Ur Leukocyte Esterase Neg Zaheer/uL (Negative) 03/24/18 13:56 Urine WBC (Auto) 6 /hpf (0-5) H 03/24/18 13:56 Urine RBC (Auto) 2 /hpf (0-3) 03/24/18 13:56 Urine Bacteria Rare (<OCC) 03/24/18 13:56 Stool Occult Blood Negative (NEGATIVE) 03/15/18 21:28 Influenza Typ A,B (EIA) Negative for flu a/b (NEGATIVE) 03/25/18 06:58 Blood Type B POSITIVE 03/16/18 11:32 Blood Type Confirm B POSITIVE 03/16/18 11:32 Antibody Screen Negative 03/16/18 11:32 - Hospital Course Hospital Course: Mr. Mortensen is a 42 year old male with no significant past medical history who presented with abdominal pain x [address] Abd/Pelvis on admission showed Region s of abnormal small bowel wall thickening. Dilated fluid-filled small bowel loops concerning for obstruction; suspect transition point in the left abdomen. Abnormal appearance of the cecum and terminal ileum may be related to infectious or inflammatory etiologies however malignant neoplasm is suspected. At least 3 hepatic hypodense masses are identified worrisome for metastases. Extensive enlarged/bulky retroperitoneal/mesenteric adenopathy.Dilated appendix measures approximately 14 mm in diameter. Correlate clinically with physical exam and white count. General Surgery, Oncology, and GI were consulted on the case. SBO was treated with R hemicolectomy. Pathology report of surgical specimen consistent with adenocarcinoma. Patient to follow up outpatient with Dr. Conway. Patient was to have port-a-cath placed on 03/28/18 but would rather do it as an outpatient. Patient to also follow up with General Surgery (Dr. Mai). He is to establish care with primary medical physician. He was offered to follow up at [facility]. Patient to go home on 7 days of Ciprofloxacin and Flagyl. He is agreeable to plan and medications. Relevant studies and laboratory work below. Colonic/Hepatic Lesions - CT abd: small bowel thickening, dilated fluid-filled small bowel loops concerning for obstruction with transition pt on the L. abnormal cecum and terminal ileum, 3 hepatic hypodense masses, bulky retroperitoneal/mesenteric adenopathy, and dilated appendix - CA19-9, CEA, PSA, AFP negative, GGT WNL - FOBT negative 03/15 - Heme/onc consulted: Dr. Fabian - Dr. Conway consulted for second opinion, help greatly appreciated - --Head CT w/ IV contrast 03/16/2018- Normal contrast enhanced CT of the head - --Chest CT with IV contrast 03/16/2018 - Right lower lobe subsegmental atelectasis. No nodule, mass, consolidation, or evidence of enlarged lymphadenopathy. Malpositioned enteric tube with tip terminating in the mid esophagus. - --Pathology: Histology is consistent with adenocarcinoma, which is diffuse, encompassing the majority of the appendix, IC junction, and with apparent spread throughout the colon with ulcerating lesions. CT abd/pelvis revealed what most likely represent metastatic lesions on the liver. See official report for full details. - --Management per Dr. Conway- Port will be placed as outpatient Leukocytosis: - CXR 03/24/2018: Persistent R basal subsegmental atelectasis. Possible forming thin wall right lung pulmonary parenchymal cavity with small dependent fluid level and superimposed R basal atelectatic changes. Technical artifact is another consideration as are skin fold changes- a similar appearance slight less conspicuous on the prior study is. No appreciable cavity or gross pmeumatocele on the recent 03/06/2018 CT study noted. The etiology and significance of this chest radiographic appearance is indeterminate. Given history provided consider follow-up CT chest to further evaluate. -CT Chest 03/24/2018: NO Pneumothorax bilaterally. Skin fold or other artifact is felt to be the cause of the linear density seen in the prior chest radiograph 03/24/2018 earlier today. Linear but increased bilateral basilar atelectasis with underlying pneumonia not completely excluded. Trace pericardial effusion or thickening. No pleural effusion b/l. No sifnificant lymphadenopathy appreciated in this noncontrast CT. -CT angio chest 03/25/2018: No evidence of central PE. Bibasilar atelectasis R>L. There are also linear atelectatic and or scarring changes seen in the middle lobe region. No definitive pulmonary masses or obvious nodules to suggest a pulmonary metastasis however consider follow up PET-CT scan. -Lower Extremity Dopplers 03/25/2018: Official read pending - Preliminary report negative for DVT. -Follow up blood cultures SBO - S/p R hemicolectomy, patient moving bowels and tolerating a solid diet. Leukocytosis resolved. - CT abd: small bowel thickening, dilated fluid-filled small bowel loops concerning for obstruction with transition pt on the L. abnormal cecum and terminal ileum, 3 hepatic hypodense masses, bulky retroperitoneal/mesenteric adenopathy, and dilated appendix - zofran 4mg IV q6h PRN - GI consulted, Dr. 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 Requiring surgical ex-lap. -Surgery Consulted, Dr. Mai. Help appreciated. --Patient went to OR 03/16 for ex lap with R hemicolectomy. Operative findings include phlegmonous mass in the cecum causing obstruction- post-op diagnosis of right colon mass. Some lymph nodes were removed, but not all lymph nodes were able to be removed safely. --Patient has been cleared for discharge from a surgical perspective. Per surgical note, Enio drain, which has been draining high output of what is ML ascites, will remain in place to be removed in the office during outpatient follow up. --No heavy lifting > 15 lbs for 6-8 weeks. [place] to be removed 2 weeks post op -Pain control: --Percocet 5/25mg PO Q4 prn Microcytic Anemia - 10.8, improving - S/p two units in OR and one unit on 03/18 - MCV low - likely secondary to malignancy and/or surgery - Fe studies --Iron deficiency - Fe 19. Currently HgB 9.4, patient receiving IV Ferrlecit 125 mg daily. --TIBC WNL --B12, Folate WNL Discharge Exam - Head Exam Head Exam: ATRAUMATIC, NORMAL INSPECTION, NORMOCEPHALIC - Eye Exam Eye Exam: EOMI, Normal appearance - ENT Exam ENT Exam: Mucous Membranes Moist - Respiratory Exam Respiratory Exam: Clear to PA & Lateral. absent: Accessory Muscle Use - Cardiovascular Exam Cardiovascular Exam: RRR, +S1, +S2 - GI/Abdominal Exam GI & Abdominal Exam: Soft, Tenderness (mild tenderness around incision site, Malick in place. ) - Extremities Exam Extremities exam: normal inspection - Neurological Exam Neurological exam: Alert, Oriented x3 - Psychiatric Exam Psychiatric exam: Normal Affect, Normal Mood - Skin Skin Exam: Dry, Intact, Normal Color, Warm Discharge Plan - Discharge Medications Prescriptions: RX: Ciprofloxacin [Cipro] 500 mg PO Q12H #14 tab metroNIDAZOLE [Flagyl] 500 mg PO Q8H #21 tab - Follow Up Plan Condition: STABLE Disposition: HOME/ ROUTINE Instructions: Mechanical Bowel Obstruction (DC), Colon and Rectal Cancer (DC) Additional Instructions: Please establish care with primary medical physician. You may follow up at our [facility] Please follow up Surgery (Dr. Mai) in 10 days form discharge Please follow up with Tax Adjuster/Oncologists (Dr. Conway). Please make appointment following Discharge Please take new medications as instructed. Diet and activity as tolerated Referrals: [facility] at [facility] [Outside] Dalton Mai MD [Staff Provider] - Dennys Conway MD [Staff Provider] - Khurram Black MD [Staff Provider] - <Ced Whittington - Last Filed: 03/26/18 18:09> Provider - Provider Date of Admission: 03/15/18 12:30 Attending physician: Ced Whittington MD Hospital Course - Lab Results Lab Results: Micro Results 03/24/18 16:30 Blood-Venous Blood Culture - Preliminary NO GROWTH AFTER 48 HOURS 03/24/18 16:00 Blood-Venous Blood Culture - Preliminary NO GROWTH AFTER 48 HOURS 03/25/18 14:49 Abdomen Gram Stain - Final 03/25/18 14:49 Abdomen Wound Culture - Preliminary NO GROWTH AFTER 24 HOURS Most Recent Lab Values WBC 12.7 K/uL (4.8-10.8) H 03/26/18 08:17 RBC 4.17 Mil/uL (4.40-5.90) L 03/26/18 08:17 Hgb 9.3 g/dL (12.0-18.0) L 03/26/18 08:17 Hct 28.5 % (35.0-51.0) L 03/26/18 08:17 MCV 68.4 fL (80.0-94.0) L 03/26/18 08:17 MCH 22.3 pg (27.0-31.0) L 03/26/18 08:17 MCHC 32.6 g/dL (33.0-37.0) L 03/26/18 08:17 RDW 30.8 % (11.5-14.5) H 03/26/18 08:17 Plt Count 355 K/uL (130-400) 03/26/18 08:17 MPV 9.0 fL (7.2-11.7) 03/26/18 08:17 Neut % (Auto) 79.1 % (50.0-75.0) H 03/24/18 16:50 Lymph % (Auto) 9.9 % (20.0-40.0) L 03/24/18 16:50 Kane % (Auto) 10.7 % (0.0-10.0) H 03/24/18 16:50 Eos % (Auto) 0.1 % (0.0-4.0) 03/24/18 16:50 Baso % (Auto) 0.2 % (0.0-2.0) 03/24/18 16:50 Neut # (Auto) 17.2 K/uL (1.8-7.0) H 03/24/18 16:50 Lymph # (Auto) 2.1 K/uL (1.0-4.3) 03/24/18 16:50 Kane # (Auto) 2.3 K/uL (0.0-0.8) H 03/24/18 16:50 Eos # (Auto) 0.0 K/uL (0.0-0.7) 03/24/18 16:50 Baso # (Auto) 0.0 K/uL (0.0-0.2) 03/24/18 16:50 Neutrophils % (Manual) 83 % (50-75) H 03/24/18 16:50 Band Neutrophils % 3 % (0-2) H 03/24/18 16:50 Lymphocytes % (Manual) 4 % (20-40) L 03/24/18 16:50 Monocytes % (Manual) 10 % (0-10) 03/24/18 16:50 Eosinophils % (Manual) 3 % (0-4) 03/15/18 10:33 Platelet Estimate Normal (NORMAL) 03/24/18 16:50 Large Platelets Present 03/24/18 16:50 Polychromasia Slight 03/24/18 08:06 Hypochromasia (manual) Slight 03/24/18 16:50 Anisocytosis (manual) Slight 03/24/18 16:50 Microcytosis (manual) Slight 03/24/18 16:50 Target Cells Slight 03/24/18 16:50 Ovalocytes Slight 03/24/18 16:50 PT 16.0 SECONDS (9.7-12.2) H 03/17/18 11:07 INR 1.5 03/17/18 11:07 APTT 28 SECONDS (21-34) 03/17/18 11:07 Puncture Site Rr 03/15/18 16:11 pCO2 39 mm/Hg (35-45) 03/15/18 16:11 pO2 80 mm/Hg (80-100) 03/15/18 16:11 HCO3 25.5 mmol/L (21-28) 03/15/18 16:11 ABG pH 7.42 (7.35-7.45) 03/15/18 16:11 ABG Total CO2 26.5 mmol/L (22-28) 03/15/18 16:11 ABG O2 Saturation 98.8 % (95-98) H 03/15/18 16:11 ABG Base Excess 0.8 mmol/L (-2.0-3.0) 03/15/18 16:11 ABG Hemoglobin 9.0 g/dL (11.7-17.4) L 03/15/18 16:11 ABG Carboxyhemoglobin 2.7 % (0.5-1.5) H 10/30/18 16:11 POC ABG HHb (Measured) 1.2 % (0.0-5.0) 03/15/18 16:11 ABG Methemoglobin 1.0 % (0.0-3.0) 03/15/18 16:11 Scottie Test Po 03/15/18 16:11 A-a O2 Difference 21.0 mm/Hg 03/15/18 16:11 Respiratory Index 0.3 03/15/18 16:11 Hgb O2 Saturation 95.2 % (95.0-98.0) 03/15/18 16:11 FiO2 21.0 % 03/15/18 16:11 Sodium 133 mmol/L (132-148) 03/26/18 08:17 Potassium 4.1 mmol/L (3.6-5.2) 03/26/18 08:17 Chloride 95 mmol/L (98-107) L 03/26/18 08:17 Carbon Dioxide 28 mmol/L (22-30) 03/26/18 08:17 Anion Gap 14 (10-20) 03/26/18 08:17 BUN 8 mg/dL (9-20) L 03/26/18 08:17 Creatinine 0.7 mg/dL (0.8-1.5) L 03/26/18 08:17 Est GFR ( Amer) > 60 03/26/18 08:17 Est GFR (Non-Af Amer) > 60 03/26/18 08:17 POC Glucose (mg/dL) 118 mg/dL (65-110) H 03/24/18 11:40 Random Glucose 101 mg/dL (75-110) 03/26/18 08:17 Calcium 8.3 mg/dl (8.6-10.4) L 03/26/18 08:17 Iron 19 ug/dL (49-181) L 03/15/18 16:49 TIBC 394 ug/dL (250-450) 03/15/18 16:49 % Saturation 5 (20-55) L 03/15/18 16:49 Ferritin 72.1 ng/mL 03/21/18 07:23 Total Bilirubin 0.6 mg/dL (0.2-1.3) 03/26/18 08:17 GGT 20 U/L (8-78) 03/15/18 16:49 AST 21 U/L (17-59) 03/26/18 08:17 ALT 22 U/L (21-72) 03/26/18 08:17 Alkaline Phosphatase 80 U/L (38-126) 03/26/18 08:17 Total Protein 6.1 g/dL (6.3-8.3) L 03/26/18 08:17 Albumin 3.0 g/dL (3.5-5.0) L 03/26/18 08:17 Globulin 3.1 gm/dL (2.2-3.9) 03/26/18 08:17 Albumin/Globulin Ratio 1.0 (1.0-2.1) 03/26/18 08:17 Lipase 115 U/L (23-300) 03/15/18 10:33 Alpha Fetoprotein 2.1 ng/mL (0.0-7.5) 03/15/18 16:49 Carcinoembryonic Ag 1.1 ng/mL (0-3.0) 03/15/18 16:49 CA 19-9 Antigen 2.7 U/mL (0-37) 03/15/18 16:49 Free PSA 0.1 ng/mL 03/15/18 16:49 % Free PSA 50 % (calc) (>25) 03/15/18 16:49 Total PSA 0.2 ng/mL (< or = 4.0) 03/15/18 16:49 Vitamin B12 382 pg/mL (239-931) 03/15/18 16:49 Folate 18.1 ng/mL 03/15/18 16:49 Procalcitonin 0.87 NG/ML (0.19-0.49) H 03/24/18 16:50 Urine Color [place] (YELLOW) 03/24/18 13:56 Urine Clarity Hazy (Clear) 03/24/18 13:56 Urine pH 5.0 (5.0-8.0) 03/24/18 13:56 Ur Specific [place] 1.028 (1.003-1.030) 03/24/18 13:56 Urine Protein 1+ mg/dL (NEGATIVE) H 03/24/18 13:56 Urine Glucose (UA) Normal mg/dL (Normal) 03/24/18 13:56 Urine Ketones 2+ mg/dL (NEGATIVE) H 03/24/18 13:56 Urine Blood Negative (NEGATIVE) 03/24/18 13:56 Urine Nitrate Negative (NEGATIVE) 03/24/18 13:56 Urine Bilirubin Negative (NEGATIVE) 03/24/18 13:56 Urine Urobilinogen 2.0 mg/dL (0.2-1.0) 03/24/18 13:56 Ur Leukocyte Esterase Neg Zaheer/uL (Negative) 03/24/18 13:56 Urine WBC (Auto) 6 /hpf (0-5) H 03/24/18 13:56 Urine RBC (Auto) 2 /hpf (0-3) 03/24/18 13:56 Urine Bacteria Rare (<OCC) 03/24/18 13:56 Stool Occult Blood Negative (NEGATIVE) 03/15/18 21:28 Influenza Typ A,B (EIA) Negative for flu a/b (NEGATIVE) 03/25/18 06:58 Blood Type B POSITIVE 03/16/18 11:32 Blood Type Confirm B POSITIVE 03/16/18 11:32 Antibody Screen Negative 03/16/18 11:32 Attending/Attestation - Attestation I have personally seen and examined this patient.: Yes I have fully participated in the care of the patient.: Yes I have reviewed all pertinent clinical information, including history, physical exam and plan: Yes Notes (Text): Patient denies abdominal pain,no cough,fever and tachycardia better blood cultures negative 48hrs s/p low grade temp,tachycardia,high procalcitonin and s/p abdominal surgery- I will discharge him on cipro and flagyl Patient will follow Dr Conway and have port cath as an out patient. He will follow Dr Mai
--- NOTE | 2018-03-27 17:34 | CP.PCM.PN ---
Subjective - Date & Time of Evaluation Date of Evaluation: 03/24/18 Time of Evaluation: 12:00 - Subjective Subjective: Feeling better. Objective - Vital Signs/Intake and Output Vital Signs (last 24 hours): Temp Pulse Resp BP Pulse Ox 98.4 F 93 H 20 121/83 96 03/26/18 07:10 03/26/18 07:10 03/26/18 07:10 03/26/18 07:10 03/26/18 07:10 - Labs Labs: 03/26/18 08:17 03/26/18 08:17 PT 16.0 SECONDS (9.7-12.2) H 03/17/18 11:07 INR 1.5 03/17/18 11:07 APTT 28 SECONDS (21-34) 03/17/18 11:07 - Head Exam Head Exam: ATRAUMATIC - Eye Exam Eye Exam: Normal appearance - ENT Exam ENT Exam: Mucous Membranes Dry - Respiratory Exam Respiratory Exam: NORMAL BREATHING PATTERN - Cardiovascular Exam Cardiovascular Exam: +S1, +S2 - GI/Abdominal Exam GI & Abdominal Exam: Normal Bowel Sounds Assessment and Plan (1) Colon cancer Assessment & Plan: s/p hemicolectomy due to obstruction lymph node and liver metastasis outpatient chemotherapy Status: Acute (2) Anemia Assessment & Plan: iron deficiency anemia s/p PRBC transfusion and on IV iron Status: Acute
--- NOTE | 2018-03-27 18:19 | VASCLAB ---
Date of service: 03/25/2018 PROCEDURE: Lower Extremity Venous Duplex Exam. HISTORY: r/o dvt PRIORS: None. TECHNIQUE: Bilateral common femoral, femoral, popliteal and posterior tibial, peroneal and great saphenous veins were evaluated. Flow was assessed with color Doppler, compressibility, assessment of phasic flow and augmentation response. Report prepared by MELVIN Barfield FINDINGS: RIGHT: 1. Common Femoral Vein: 1.1. Compressibility - Fully compressible: Thrombus - None : Flow - Phasic: Augmentation -Normal: Reflux - None. 2. Femoral Vein: 2.1. Compressibility - Fully compressible: Thrombus - None : Flow - Phasic: Augmentation -Normal: Reflux - Mild 1.18s 3. Popliteal Vein: 3.1. Compressibility - Fully compressible: Thrombus - None : Flow - Phasic: Augmentation -Normal: Reflux - Moderate >3.66s 4. Posterior Tibial Vein: 4.1. Compressibility - Fully compressible: Thrombus - None: Flow - Phasic: Augmentation -Normal: Reflux - None. 5. Peroneal Vein: 5.1. Compressibility - Fully compressible: Thrombus - None: Flow - Phasic: Augmentation -Normal: Reflux - None. 6. Great Saphenous Vein: 6.1. Compressibility - Fully compressible: Thrombus - None: Flow - Phasic: Augmentation - Normal: Reflux - None. LEFT: 1. Common Femoral Vein: 1.1. Compressibility - Fully compressible: Thrombus - None: Flow - Phasic: Augmentation -Normal: Reflux - None. 2. Femoral Vein: 2.1. Compressibility - Fully compressible: Thrombus - None: Flow - Phasic: Augmentation -Normal: Reflux - None. 3. Popliteal Vein: 3.1. Compressibility - Fully compressible: Thrombus - None : Flow - Phasic: Augmentation -Normal: Reflux - None. 4. Posterior Tibial Vein: 4.1. Compressibility - Fully compressible: Thrombus - None: Flow - Phasic: Augmentation -Normal: Reflux - None. 5. Peroneal Vein: 5.1. Compressibility - Fully compressible: Thrombus - None: Flow - Phasic: Augmentation -Normal: Reflux - None. 6. Great Saphenous Vein: 6.1. Compressibility - Fully compressible: Thrombus - None: Flow - Phasic: Augmentation - Normal: Reflux - None. OTHER FINDINGS: Right: None significant. Left: None significant. IMPRESSION: Right: No evidence of deep or superficial vein thrombosis of the right lower extremity. Valvular incompetence noted of the right side. Left: No evidence of deep or superficial vein thrombosis of the left lower extremity. Normal valve function noted of the left side.
--- NOTE | 2018-03-27 18:32 | VASCLAB ---
Date of service: 03/25/2018 PROCEDURE: Upper Extremity Venous Duplex Exam HISTORY: r/o dvt PRIORS: None. TECHNIQUE: Bilateral upper extremity, internal jugular, subclavian, axillary, brachial, ulnar, radial, basilic and upper cephalic veins were evaluated. Flow was assessed with color Doppler, compressibility, assessment of phasic flow and augmentation response. Report prepared by MELVIN Barfield FINDINGS: RIGHT: 1. Internal Jugular: 1.1. Compressibility - Fully compressible: Thrombus - None : Flow - Phasic: Augmentation -Normal: Reflux - None. 2. Subclavian: 2.1. Compressibility - Fully compressible: Thrombus - None : Flow - Phasic: Augmentation -Normal: Reflux - None. 3. Axillary: 3.1. Compressibility - Fully compressible: Thrombus - None : Flow - Phasic: Augmentation -Normal: Reflux - None. 4. Brachial: 4.1. Compressibility - Fully compressible: Thrombus - None: Flow - Phasic: Augmentation -Normal: Reflux - None. 5. Ulnar: 5.1. Compressibility - Fully compressible: Thrombus - None: Flow - Phasic: Augmentation -Normal: Reflux - None. 6. Radial: 6.1. Compressibility - Fully compressible: Thrombus - None: Flow - Phasic: Augmentation - Normal: Reflux - None. 7. Cephalic: 7.1. Compressibility - Fully compressible: Thrombus - None: Flow - Phasic: Augmentation -Normal: Reflux - None. 8. Basilic: 8.1. Compressibility - Fully compressible: Thrombus - None: Flow - Phasic: Augmentation -Normal: Reflux - None. LEFT: 1. Internal Jugular: 1.1. Compressibility - Fully compressible: Thrombus - None : Flow - Phasic: Augmentation -Normal: Reflux - None. 2. Subclavian: 2.1. Compressibility - Fully compressible: Thrombus - None : Flow - Phasic: Augmentation -Normal: Reflux - None. 3. Axillary: 3.1. Compressibility - Fully compressible: Thrombus - None : Flow - Phasic: Augmentation -Normal: Reflux - None. 4. Brachial: 4.1. Compressibility - Fully compressible: Thrombus - None: Flow - Phasic: Augmentation -Normal: Reflux - None. 5. Ulnar: 5.1. Compressibility - Fully compressible: Thrombus - None: Flow - Phasic: Augmentation -Normal: Reflux - None. 6. Radial: 6.1. Compressibility - Fully compressible: Thrombus - None: Flow - Phasic: Augmentation - Normal: Reflux - None. 7. Cephalic: 7.1. Compressibility - Fully compressible: Thrombus - None: Flow - Phasic: Augmentation -Normal: Reflux - None. 8. Basilic: 8.1. Compressibility - Fully compressible: Thrombus - None: Flow - Phasic: Augmentation -Normal: Reflux - None. OTHER FINDINGS: Right: None. Left: None. IMPRESSION: Right: No evidence of vein thrombosis of the right upper extremity with excellent venous flow. Normal valve function noted of the right side. Left: No evidence of vein thrombosis of the left upper extremity with excellent venous flow. Normal valve function noted of the left side.
== END 2018-03-26 13:15 | disposition home or self-care (01) | DRG 221 ==
LOC: C.ER 09:49 → C.3T 12:30 → C.6T 03-16 21:01
PROVIDERS: ADMIT Internal Medicine; ATTEND Internal Medicine
PROC: 30233N1 Transfusion of Nonautologous Red Blood Cells into Peripheral Vein, Percutaneous Approach (ICD-10-PCS; 2018-03-16)
PROC: 0DTF0ZZ Resection of Right Large Intestine, Open Approach (ICD-10-PCS; principal; 2018-03-16 09:15)
DX: C18.0 Malignant neoplasm of cecum (principal); J18.9 Pneumonia, unspecified organism; C78.7 Secondary malignant neoplasm of liver and intrahepatic bile duct; K56.609 Unspecified intestinal obstruction, unspecified as to partial versus complete obstruction; C77.2 Secondary and unspecified malignant neoplasm of intra-abdominal lymph nodes; R18.8 Other ascites; Q89.09 Congenital malformations of spleen; J98.11 Atelectasis; D50.9 Iron deficiency anemia, unspecified; D63.8 Anemia in other chronic diseases classified elsewhere; K21.9 Gastro-esophageal reflux disease without esophagitis; K40.20 Bilateral inguinal hernia, without obstruction or gangrene, not specified as recurrent; Z87.891 Personal history of nicotine dependence; K76.0 Fatty (change of) liver, not elsewhere classified; Z80.0 Family history of malignant neoplasm of digestive organs

== ENCOUNTER 2018-04-15 08:54 | Day surgery (SDC) | payer SELFPAY ==
[2018-04-05 09:36] VITALS: BMI 23.3
[~2018-04-15 08:54] MED LIST: Bupivacaine-Epi 0.5%-1:200,000 PF Inj ONE; ceFAZolin IV 1 gm in Dextrose 2 GM/100 ML BAG IVPB ONE
[2018-04-15] MEDS ORDERED: Propofol 10 mg/ml Inj (20 ML) ONE ×2 (09:40→10:37)
[2018-04-15] MEDS ORDERED: HEPARIN-NS 5,000 UNITS/500 ML 5,000 UNIT/500 ML BAG IV ONE (09:54)
[2018-04-15] MEDS ORDERED: Morphine 4 MG/ML VIAL ONE (10:03)
[2018-04-15] MEDS ORDERED: Midazolam 2 MG/2 ML VIAL ONE (10:05)
--- NOTE | 2018-04-15 10:49 | PCM.SURG1 ---
Surgeon's Initial Post Op Note - Surgeon's Notes Surgeon: Dr. Mai Core Cutter And Reamer: Dr. Boogie PGY-3 Type of Anesthesia: IV Sedation, Local Pre-Operative Diagnosis: Metastatic Colon CA Operative Findings: see operative report Post-Operative Diagnosis: Same Operation Performed: L subclavian Port-a-cath insertion Specimen/Specimens Removed: none Estimated Blood Loss: EBL {In ML}: 5 Blood Products Given: N/A Drains Used: No Drains Post-Op Condition: Good Date of Surgery/Procedure: 04/15/18 Time of Surgery/Procedure: 10:49
[2018-04-15] MEDS ORDERED: Lactated Ringer's 1,000 ML IV SCH (11:00)
--- NOTE | 2018-04-15 11:15 | RAD ---
Date of service: 04/15/2018 HISTORY: Status post L subclavian portacath insertion COMPARISON: Comparison chest 03/24/2018. FINDINGS: In situ left subclavian Port-A-Cath with tip in the SVC LUNGS: No active pulmonary disease. PLEURA: No significant pleural effusion identified, no pneumothorax apparent. CARDIOVASCULAR: No discernible aortic atherosclerotic calcification present. Normal cardiac size. No pulmonary vascular congestion. OSSEOUS STRUCTURES: No significant abnormalities. VISUALIZED UPPER ABDOMEN: Normal. OTHER FINDINGS: None. IMPRESSION: In situ left subclavian Port-A-Cath with tip in the SVC. No acute cardiopulmonary disease.
[2018-04-15 11:57] VITALS: RESP 16; TEMP 97.6; O2SAT 100
[2018-04-15 12:04] VITALS: BP 119/81; PULSE 78
--- NOTE | 2018-04-15 12:55 | RAD ---
Date of service: 04/15/2018 PROCEDURE: Intraoperative Fluoroscopy. HISTORY: COLON CA. FINDINGS: Fluoroscopic assistance was provided. Fluoroscopy time = 30.6 sec. Radiation dose = 1.37 mGy. Please refer to the operative report from for additional details.
--- NOTE | 2018-04-20 03:48 | OP ---
PROCEDURE DATE: 04/15/2018 PREOPERATIVE DIAGNOSIS: Metastatic colon carcinoma. POSTOPERATIVE DIAGNOSIS: Metastatic colon carcinoma. PROCEDURE PERFORMED: Insertion of LifePort. DESCRIPTION OF PROCEDURE: Under general anesthesia with conscious IV sedation, the patient was prepared and draped in the usual sterile fashion. The left subclavian vein was accessed with a needle puncture. A guide wire was introduced in a position of which was confirmed by C-arm. It was noted that it was in the right position and introducer was then inserted. The guide wire was left and through the introducer, a Port-A-Cath was inserted and positioned around the area of the superior vena cava. The pocket was then in the left infraclavicular area. The catheter was connected to the was placed in the pocket, and then the wound was closed utilizing multiple interrupted sutures of 3-0 Vicryl for the subcutaneous tissue and the skin with a subcuticular suture of 4-0 Monocryl. Estimated blood loss about 5 mL. The patient tolerated the procedure well and left the operating room in good condition. X-rays will be taken to see if there is any pneumothorax. Dalton Mai MD
== END 2018-04-15 11:59 | disposition home or self-care (01) ==
LOC: C.SDS 08:54
PROVIDERS: ATTEND Surgery
DX: C78.7 Secondary malignant neoplasm of liver and intrahepatic bile duct (principal); C77.9 Secondary and unspecified malignant neoplasm of lymph node, unspecified; C18.9 Malignant neoplasm of colon, unspecified
CPT/HCPCS: 36561; 71045; 77001; C1788; J0690; J2001; J2250; J2704; J3010; J7040